=== PATIENT | female | born 1940 | race Caucasian/White ===

== ENCOUNTER 2016-10-14 19:59 | Observation (INO) | payer MEDICARE, OTHER ==
[~2016-10-14] VITALS: Ht 182.9 cm; Wt 104.0 kg
[~2016-10-14 19:59] MED LIST: DULO60 PO; EZET10 PO; HYDR12.56 PO; PERC5TAB12 PO; PROT40TA PO; REQU0.5T PO; SENN8.6T15 PO; [UNRECOGNIZED DRUG - CODE] PO
[2016-10-14 20:19] VITALS: BP 101/65; PULSE 91; RESP 20; TEMP 98.4; O2SAT 95
--- NOTE | 2016-10-14 20:22 | PD ---
HPI Chief Complaint: involuntary movements Time Seen by Provider: 20:04 Travel History International Travel<30 days: No Contact w/Intl Traveler<30days: No Traveled to known affect area: No History of Present Illness HPI The patient is a 76-year-old female who presents to the emergency department via EMS for headache and onset of involuntary movements. The patient states her symptoms started at approximately midnight last night. The patient states her gave her Zoloft at 10 PM yesterday, she then developed involuntary movements of her arms and legs at approximately midnight. The patient denies any previous history of chorea, hemiballsim, but does note a history of restless leg syndrome for which she takes Zanaflex and Requip. The patient is followed by chronic pain interventional list/neurologist, Dr. Patel. She denies any history of similar involuntary movements in the past. She also complains of a mild dull headache, does have a history of intracranial hemorrhage after a fall one year ago. Symptoms are moderate, there are no alleviating or exacerbating factors. PFSH Past Medical History Arthritis: Yes Anxiety: No Depression: No Cancer: No High Cholesterol: Yes Endocrine: No GERD: Yes Genitourinary: Yes (Admitted 11/13/15 with non obstructing calculi right kidney) Hypertension: Yes Immune Disorder: No Insomnia: Yes Musculoskeletal: Yes (LOW BACK PAIN) Neurologic: Yes (restless leg syndrome) Psychiatric: No Reproductive: No Respiratory: No Shingles: Yes Menopausal: Yes Past Surgical History Appendectomy: Yes Eye Surgery: Yes (CATARACT) Gynecologic Surgery: Yes (partial hysterectomy) Hysterectomy: Yes Joint Replacement: Yes Social History Alcohol Use: No Tobacco Use: No Substance Use: No Allergies-Medications (Allergen,Severity, Reaction): Coded Allergies: amlodipine (Unverified Allergy, Intermediate, Rash, 10/14/16) atorvastatin (Unverified Allergy, Intermediate, Rash, 10/14/16) penicillin G (Unverified Allergy, Intermediate, Rash, 10/14/16) pravastatin (Unverified Allergy, Intermediate, Rash, 10/14/16) simvastatin (Unverified Allergy, Intermediate, Rash, 10/14/16) pregabalin (Unverified Adverse Reaction, Intermediate, Hallucinations, ) Reported Meds & Prescriptions Reported Meds & Active Scripts Active Percocet 5-325 mg (Oxycodone/Acetaminophen) 1 Tab 1 Tab PO Q6H PRN Protonix (Pantoprazole Sodium) 40 Mg Tab 40 Mg PO BID Senna Lax (Sennosides) 8.6 Mg Tab 17.2 Mg PO Q12H PRN 10 Days Reported Hctz (Hydrochlorothiazide) 12.5 Mg Cap 12.5 Mg PO DAILY Duloxetine HCl 60 Mg Cap 60 Mg PO DAILY Requip 0.5 mg (ROPINIROLE HYDROCHLORIDE 0.5 mg) 0.5 Mg Tab 0.5 Mg PO HS Zetia (Ezetimibe) 10 Mg Tab 10 Mg PO DAILY Isoptin 180 Mg Tab Sr (Verapamil HCl) 180 Mg Tabcr 180 Mg PO BID Review of Systems Except as stated in HPI: all other systems reviewed are Neg General / Constitutional: No: Fever HENT: Positive: Headaches, No: Lightheadedness, Neck Pain Cardiovascular: No: Chest Pain or Discomfort Respiratory: No: Shortness of Breath Gastrointestinal: No: Nausea, Vomiting Musculoskeletal: No: Weakness Neurologic: Positive: Other (involuntary movements of the arms and legs), No: Dizziness Physical Exam Narrative GENERAL: Awake, alert, pleasant 76-year-old female who appears her stated age and is in no acute respiratory distress. SKIN: Focused skin assessment warm/dry. HEAD: Atraumatic. Normocephalic. EYES: Pupils equal and round. Pupils are 3 mm bilateral and reactive. ENT: No nasal bleeding or discharge. Mucous membranes pink and moist. NECK: Trachea midline. No JVD. CARDIOVASCULAR: Regular rate and rhythm. No murmur appreciated. RESPIRATORY: No accessory muscle use. Clear to auscultation. Breath sounds equal bilaterally. GASTROINTESTINAL: Abdomen soft, non-tender, nondistended. MUSCULOSKELETAL: No obvious deformities. No clubbing. No cyanosis. No edema. NEUROLOGICAL: Awake and alert. No obvious cranial nerve deficits. Involuntary chorea type movements of the arms and legs. Oriented 4. Follows commands without difficulty. PSYCHIATRIC: Appropriate mood and affect; insight and judgment normal. Data Data Last Documented VS Vital Signs Date Time Temp Pulse Resp B/P (MAP) Pulse Ox O2 Delivery O2 Flow Rate FiO2 10/14/16 20:26 95 Room Air 10/14/16 20:19 98.4 91 20 101/65 (77) Orders Orders Complete Blood Count With Diff (8/21/17 20:16) Comprehensive Metabolic Panel (10/14/16 20:16) Urinalysis - C+S If Indicated (10/14/16 20:16) Creatine Kinase (Cpk) (10/14/16 20:16) Ct Brain W/O Iv Contrast(Rout) (10/14/16 ) Lorazepam Inj (Ativan Inj) (10/14/16 20:30) Electrocardiogram (10/14/16 20:32) CKMB (10/14/16 20:50) CKMB% (10/14/16 20:50) Admit Order (Ed Use Only) (10/14/16 22:18) Labs Laboratory Tests Test 10/14/16 20:50 10/14/16 21:05 White Blood Count 13.1 TH/MM3 Red Blood Count 4.02 MIL/MM3 Hemoglobin 12.3 GM/DL Hematocrit 37.4 % Mean Corpuscular Volume 93.1 FL Mean Corpuscular Hemoglobin 30.7 PG Mean Corpuscular Hemoglobin Concent 33.0 % Red Cell Distribution Width 12.5 % Platelet Count 289 TH/MM3 Mean Platelet Volume 8.0 FL Neutrophils (%) (Auto) 62.1 % Lymphocytes (%) (Auto) 31.2 % Monocytes (%) (Auto) 5.4 % Eosinophils (%) (Auto) 0.5 % Basophils (%) (Auto) 0.8 % Neutrophils # (Auto) 8.1 TH/MM3 Lymphocytes # (Auto) 4.1 TH/MM3 Monocytes # (Auto) 0.7 TH/MM3 Eosinophils # (Auto) 0.1 TH/MM3 Basophils # (Auto) 0.1 TH/MM3 CBC Comment DIFF FINAL Differential Comment Blood Urea Nitrogen 28 MG/DL Creatinine 0.81 MG/DL Random Glucose 99 MG/DL Total Protein 6.7 GM/DL Albumin 3.4 GM/DL Calcium Level 8.7 MG/DL Alkaline Phosphatase 114 U/L Aspartate Amino Transf (AST/SGOT) 14 U/L Alanine Aminotransferase (ALT/SGPT) 24 U/L Total Bilirubin 0.4 MG/DL Sodium Level 140 MEQ/L Potassium Level 3.9 MEQ/L Chloride Level 108 MEQ/L Carbon Dioxide Level 21.2 MEQ/L Anion Gap 11 MEQ/L Estimat Glomerular Filtration Rate 69 ML/MIN Total Creatine Kinase 219 U/L Creatine Kinase MB 8.0 NG/ML Creatine Kinase MB % 3.7 % Urine Color YELLOW Urine Turbidity CLEAR Urine pH 5.5 Urine Specific [place] 1.024 Urine Protein TRACE mg/dL Urine Glucose (UA) NEG mg/dL Urine Ketones NEG mg/dL Urine Occult Blood NEG Urine Nitrite POS Urine Bilirubin NEG Urine Urobilinogen LESS THAN 2.0 MG/DL Urine Leukocyte Esterase SMALL Urine RBC 2 /hpf Urine WBC 7 /hpf Urine Squamous Epithelial Cells <1 /hpf Urine Bacteria OCC /hpf Urine Hyaline Casts 2 /lpf Urine Mucus FEW /lpf Urine Yeast (Budding) RARE Microscopic Urinalysis Comment CULT NOT INDICATED MDM Medical Decision Making Medical Screen Exam Complete: Yes Emergency Medical Condition: Yes Medical Record Reviewed: Yes Interpretation(s) CT of the brain reveals no acute findings. Laboratory Tests Test 10/14/16 20:50 10/14/16 21:05 White Blood Count 13.1 TH/MM3 Red Blood Count 4.02 MIL/MM3 Hemoglobin 12.3 GM/DL Hematocrit 37.4 % Mean Corpuscular Volume 93.1 FL Mean Corpuscular Hemoglobin 30.7 PG Mean Corpuscular Hemoglobin Concent 33.0 % Red Cell Distribution Width 12.5 % Platelet Count 289 TH/MM3 Mean Platelet Volume 8.0 FL Neutrophils (%) (Auto) 62.1 % Lymphocytes (%) (Auto) 31.2 % Monocytes (%) (Auto) 5.4 % Eosinophils (%) (Auto) 0.5 % Basophils (%) (Auto) 0.8 % Neutrophils # (Auto) 8.1 TH/MM3 Lymphocytes # (Auto) 4.1 TH/MM3 Monocytes # (Auto) 0.7 TH/MM3 Eosinophils # (Auto) 0.1 TH/MM3 Basophils # (Auto) 0.1 TH/MM3 CBC Comment DIFF FINAL Differential Comment Blood Urea Nitrogen 28 MG/DL Creatinine 0.81 MG/DL Random Glucose 99 MG/DL Total Protein 6.7 GM/DL Albumin 3.4 GM/DL Calcium Level 8.7 MG/DL Alkaline Phosphatase 114 U/L Aspartate Amino Transf (AST/SGOT) 14 U/L Alanine Aminotransferase (ALT/SGPT) 24 U/L Total Bilirubin 0.4 MG/DL Sodium Level 140 MEQ/L Potassium Level 3.9 MEQ/L Chloride Level 108 MEQ/L Carbon Dioxide Level 21.2 MEQ/L Anion Gap 11 MEQ/L Estimat Glomerular Filtration Rate 69 ML/MIN Total Creatine Kinase 219 U/L Urine Color YELLOW Urine Turbidity CLEAR Urine pH 5.5 Urine Specific [place] 1.024 Urine Protein TRACE mg/dL Urine Glucose (UA) NEG mg/dL Urine Ketones NEG mg/dL Urine Occult Blood NEG Urine Nitrite POS Urine Bilirubin NEG Urine Urobilinogen LESS THAN 2.0 MG/DL Urine Leukocyte Esterase SMALL Urine RBC 2 /hpf Urine WBC 7 /hpf Urine Squamous Epithelial Cells <1 /hpf Urine Bacteria OCC /hpf Urine Hyaline Casts 2 /lpf Urine Mucus FEW /lpf Urine Yeast (Budding) RARE Microscopic Urinalysis Comment CULT NOT INDICATED Differential Diagnosis Differential diagnosis includes chorea, hemiballism, brainstem infarct, cerebellar infarct, medication side effect. Narrative Course IV was established, labs are drawn and sent, and the patient was placed on cardiac telemetry monitoring and continuous pulse oximetry monitoring. CT of the brain was obtained. The patient was administered Ativan [address] of the brain is negative for acute hemorrhage. Laboratory evaluation is essentially unremarkable. Patient has chorea, acute onset, unsure if this is medication induced versus organic brain disease. Patient will benefit from neurology consultation and MRI. Patient does take several medicines which could be the culprit of her chorea. She had minimal relief with Ativan, I will hold on antipsychotics until patient is seen by neurology. The patient has [employer] and is followed by Dr. Perry Shoemaker, therefore, [facility] were paged for 23 hour observation. Physician Communication Physician Communication [facility] were paged for 23 hour observation. I discussed the patient with Dr. Joya who agrees with 23 hour observation. Diagnosis Primary Impression: Acute chorea Admitting Information Admitting Physician Requests: Observation Condition: Stable Dyllan Gimenez MD Oct 14, 2016 20:22
[2016-10-14] MEDS ORDERED: LORazepam 2 MG/ML VIAL IV PUSH ONE (20:30)
--- NOTE | 2016-10-14 21:23 | RADRPT ---
EXAM DATE/TIME: 10/14/2016 20:45 [facility] COMPARISON: CT BRAIN W/O CONTRAST, August 17, 2015, 0:02. INDICATIONS : Cephalgia and weakness. RADIATION DOSE: 56.35 CTDIvol (mGy) MEDICAL HISTORY : Hypertension. Gastroesophageal reflux disease. Renal calculi. SURGICAL HISTORY : Appendectomy. Hysterectomy. ENCOUNTER: Initial ACUITY: 1 day PAIN SCALE: 6/10 LOCATION: cranial TECHNIQUE: Multiple contiguous axial images were obtained of the head. Using automated exposure control and adj ustment of the mA and/or kV according to patient size, radiation dose was kept as low as reasonably a chievable to obtain optimal diagnostic quality images. DICOM format image data is available electro nically for review and comparison. FINDINGS: CEREBRUM: The ventricles are normal for age. No evidence of midline shift, mass lesion, hemorrhage or acute in farction. No extra-axial fluid collections are seen. POSTERIOR FOSSA: The cerebellum and brainstem are intact. The 4th ventricle is midline. The cerebellopontine angle i s unremarkable. EXTRACRANIAL: The visualized portion of the orbits is intact. SKULL: The calvaria is intact. No evidence of skull fracture. CONCLUSION: No acute disease. Stable exam without evidence of acute infarct, hemorrhage, mass or edema. Ronn Mcduffie MD on October 14, 2016 at 21:21 Board Certified Radiologist. This report was verified electronically.
[2016-10-14 21:32] LABS: AUTOMATED NEUTROPHIL # 8.1 TH/MM3 (1.8-7.7); BASOPHIL # 0.1 TH/MM3 (0-0.2); BASOPHIL % 0.8 % (0.0-2.0); EOSINOPHIL # 0.1 TH/MM3 (0-0.4); EOSINOPHIL % 0.5 % (0.0-4.0); HEMATOCRIT 37.4 % (35.0-46.0); HEMO FLAGS DIFF FINAL; LYMPH % 31.2 % (9.0-44.0); LYMPHOCYTE # 4.1 TH/MM3 (1.0-4.8); MEAN CELL VOLUME 93.1 FL (80.0-100.0); MEAN CORPUSCULAR HEMOGLOBIN 30.7 PG (27.0-34.0); MONO % 5.4 % (0.0-8.0); NEUT % 62.1 % (16.0-70.0); PLATELET COUNT 289 TH/MM3 (150-450); RED BLOOD COUNT 4.02 MIL/MM3 (4.00-5.30); RED CELL DISTRIBUTION WIDTH 12.5 % (11.6-17.2); WHITE BLOOD COUNT 13.1 TH/MM3 (4.0-11.0)
[2016-10-14 21:45] LABS: BACTERIA, URINE OCC /hpf; BLOOD, URINE NEG (NEG); GLUCOSE,URINE NEG (NEG); HYALINE CAST, URINE 2 /lpf (RARE); KETONE, URINE NEG (NEG); MUCUS URINE FEW /lpf (OCC); NITRITE,URINE POS (NEG); PH, URINE 5.5 (5.0-8.5); SQUAMOUS EPITHELIAL CELL URINE <1 /hpf (0-5); URINE COLOR YELLOW (YELLW/STRAW)
[2016-10-14 21:46] LABS: COMMENT (UR) CULT NOT INDICATED; CULTURE IF INDICATED CULT NOT INDICATED
[2016-10-14 21:48] LABS: ANION GAP 11 MEQ/L (5-15); AST (GOT) 14 U/L (15-37); BICARBONATE 21.2 MEQ/L (21.0-32.0); BLOOD UREA NITROGEN 28 MG/DL (7-18); CHLORIDE 108 MEQ/L (98-107); GLOMERULAR FILTRATION RATE 69 ML/MIN (>89); POTASSIUM 3.9 MEQ/L (3.5-5.1); SODIUM (NA) 140 MEQ/L (136-145)
[2016-10-14 21:49] LABS: ALT (GPT) 24 U/L (10-53)
[2016-10-14 21:51] LABS: ALKALINE PHOSPHATASE 114 U/L (45-117); CREATINE KINASE 219 U/L (26-192); TOTAL BILIRUBIN ADULT 0.4 MG/DL (0.2-1.0)
[2016-10-14] MEDS ORDERED: LACTULOSE SYRUP 20 GM/30 ML CUP PO PRN (22:30)
[2016-10-14] MEDS ORDERED: NALOXONE HCL 0.4 MG/ML AMP IV PRN (22:30)
[2016-10-14] MEDS ORDERED: MAGNESIUM HYDROXIDE SUSP 30 ML CUP PO PRN (22:30)
[2016-10-14] MEDS ORDERED: SENNOSIDES 8.6 MG TAB PO PRN (22:30)
[2016-10-14] MEDS ORDERED: ACETAMINOPHEN 325 MG TAB PO PRN ×2 (22:30)
[2016-10-14] MEDS ORDERED: SODIUM CHLORIDE 0.9% FLUSH 10 ML FLUSH IV FLUSH PRN (22:30)
[2016-10-14] MEDS ORDERED: ONDANSETRON HCL 4 MG/2 ML VIAL IVP PRN (22:30)
--- NOTE | 2016-10-14 23:14 | HHI.HP ---
HPI Service [facility] Primary Care Physician Perry Shoemaker DO Admission Diagnosis new onset chorea Diagnoses: Chief Complaint: Involuntary movements Travel History International Travel<30 Days: No Contact w/Intl Traveler <30 Da: No Traveled to Known Affected Are: No History of Present Illness This is a 76-year-old female with history of hyperlipidemia, hypertension, GERD , restless leg syndrome, chronic bed 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 She presented to the emergency department complaining of involuntary movements that started last night after receiving Zoloft given that has been because she was unable to sleep. States she is not able to control her movements involving her head and extremities. She also complains of intermittent mild headache for the past 2 days. No visual changes, numbness, focal weakness and nausea. Earlier today she had an episode of difficulty staying awake and diaphoresis. No cough, UTI symptoms, diarrhea, fever and chills. Head CT without acute findings. She was seen by her PA in the neurologist clinic today and was told she didn't look right. She did not receive refill of her pain medications because she needed blood work. ER physician recommended further hospitalization because of new onset Chorea . All other systems reviewed negative Review of Systems Except as stated in HPI: all other systems reviewed are Neg Past Family Social History Past Medical History As previously mentioned Past Surgical History Appendectomy, cataract surgery, hysterectomy, knee surgery and back vilma placement Reported Medications RN to update med list but patient claims to be on Percocet, Protonix, Requip, Zetia and verapamil Allergies: Coded Allergies: amlodipine (Unverified Allergy, Intermediate, Rash, 10/14/16) atorvastatin (Unverified Allergy, Intermediate, Rash, 10/14/16) penicillin G (Unverified Allergy, Intermediate, Rash, 10/14/16) pravastatin (Unverified Allergy, Intermediate, Rash, 10/14/16) simvastatin (Unverified Allergy, Intermediate, Rash, 10/14/16) pregabalin (Unverified Adverse Reaction, Intermediate, Hallucinations, ) Family History ALS Social History Does not smoke or drink Physical Exam Vital Signs Vital Signs Date Time Temp Pulse Resp B/P (MAP) Pulse Ox O2 Delivery O2 Flow Rate FiO2 10/14/16 20:26 95 Room Air 10/14/16 20:19 98.4 91 20 101/65 (77) 95 Physical Exam GENERAL: This is a well-nourished, well-developed patient, in no apparent distress. SKIN: No rashes, ecchymoses or lesions. Cool and dry. HEAD: Atraumatic. Normocephalic. No temporal or scalp tenderness. EYES: Pupils equal round and reactive. Extraocular motions intact. No scleral icterus. No injection or drainage. ENT: Nose without bleeding, purulent drainage or septal hematoma. Throat without erythema, tonsillar hypertrophy or exudate. Uvula midline. Airway patent. NECK: Trachea midline. No JVD or lymphadenopathy. Supple, nontender, no meningeal signs. CARDIOVASCULAR: Regular rate and rhythm without murmurs, gallops, or rubs. RESPIRATORY: Clear to auscultation. Breath sounds equal bilaterally. No wheezes , rales, or rhonchi. GASTROINTESTINAL: Abdomen soft, non-tender, nondistended. No guarding. MUSCULOSKELETAL: Extremities without clubbing, cyanosis, or edema. No joint tenderness, effusion, or edema noted. No calf tenderness. Negative Homans sign bilaterally. NEUROLOGICAL: Awake and alert. Cranial nerves II through XII intact. Decreased sensation left leg which is chronic per patient. Five out of 5 muscle strength in all muscle groups. Normal speech. Involuntary irregular motor activity involving the head and extremities Laboratory Laboratory Tests Test 10/14/16 20:50 10/14/16 21:05 White Blood Count 13.1 Red Blood Count 4.02 Hemoglobin 12.3 Hematocrit 37.4 Mean Corpuscular Volume 93.1 Mean Corpuscular Hemoglobin 30.7 Mean Corpuscular Hemoglobin Concent 33.0 Red Cell Distribution Width 12.5 Platelet Count 289 Mean Platelet Volume 8.0 Neutrophils (%) (Auto) 62.1 Lymphocytes (%) (Auto) 31.2 Monocytes (%) (Auto) 5.4 Eosinophils (%) (Auto) 0.5 Basophils (%) (Auto) 0.8 Neutrophils # (Auto) 8.1 Lymphocytes # (Auto) 4.1 Monocytes # (Auto) 0.7 Eosinophils # (Auto) 0.1 Basophils # (Auto) 0.1 CBC Comment DIFF FINAL Differential Comment Blood Urea Nitrogen 28 Creatinine 0.81 Random Glucose 99 Total Protein 6.7 Albumin 3.4 Calcium Level 8.7 Alkaline Phosphatase 114 Aspartate Amino Transf (AST/SGOT) 14 Alanine Aminotransferase (ALT/SGPT) 24 Total Bilirubin 0.4 Sodium Level 140 Potassium Level 3.9 Chloride Level 108 Carbon Dioxide Level 21.2 Anion Gap 11 Estimat Glomerular Filtration Rate 69 Total Creatine Kinase 219 Creatine Kinase MB 8.0 Creatine Kinase MB % 3.7 Urine Color YELLOW Urine Turbidity CLEAR Urine pH 5.5 Urine Specific [place] 1.024 Urine Protein TRACE Urine Glucose (UA) NEG Urine Ketones NEG Urine Occult Blood NEG Urine Nitrite POS Urine Bilirubin NEG Urine Urobilinogen LESS THAN 2.0 Urine Leukocyte Esterase SMALL Urine RBC 2 Urine WBC 7 Urine Squamous Epithelial Cells <1 Urine Bacteria OCC Urine Hyaline Casts 2 Urine Mucus FEW Urine Yeast (Budding) RARE Microscopic Urinalysis Comment CULT NOT INDICATED Result Diagram: 10/14/16204910/14/162049 Imaging EKG with sinus rhythm and incomplete RBBB tracing interpreted by Caprini VTE Risk Assessment Caprini VTE Risk Assessment: Mod/High Risk (score >= 2) Caprini Risk Assessment Model Point Value = 1 Point Value = 2 Point Value = 3 Point Value = 5 Age 41-60 Minor surgery BMI > 25 kg/m2 Swollen legs Varicose veins or History of unexplained or recurrent spontaneous Oral contraceptives or hormone replacement Sepsis (< 1 month) Serious lung disease, including pneumonia (< 1 month) Abnormal pulmonary function Acute myocardial infarction Congestive heart failure (< 1 month) History of inflammatory bowel disease Medical patient at bed rest Age 61-74 Arthroscopic surgery Major open surgery (> 45 min) Laparoscopic surgery (> 45 min) Malignancy Confined to bed (> 72 hours) Immobilizing plaster cast Central venous access Age >= 75 History of VTE Family history of VTE Factor V Leiden Prothrombin [id number] Lupus anticoagulant Anticardiolipin antibodies Elevated serum homocysteine Heparin-induced thrombocytopenia Other congenital or acquired thrombophilia Stroke (< 1 month) Elective arthroplasty Hip, pelvis, or leg fracture Acute spinal cord injury (< 1 month) Prophylaxis Regimen Total Risk Factor Score Risk Level Prophylaxis Regimen 0-1 Low Early ambulation 2 Moderate Order ONE of the following: *Sequential Compression Device (SCD) *Heparin 5000 units SQ BID 3-4 Higher Order ONE of the following medications: *Heparin 5000 units SQ TID *Enoxaparin/Lovenox 40 mg SQ daily (WT < 150 kg, CrCl > 30 mL/min) *Enoxaparin/Lovenox 30 mg SQ daily (WT < 150 kg, CrCl > 10-29 mL/min) *Enoxaparin/Lovenox 30 mg SQ BID (WT < 150 kg, CrCl > 30 mL/min) AND/OR *Sequential Compression Device (SCD) 5 or more Highest Order ONE of the following medications: *Heparin 5000 units SQ TID (Preferred with Epidurals) *Enoxaparin/Lovenox 40 mg SQ daily (WT < 150 kg, CrCl > 30 mL/min) *Enoxaparin/Lovenox 30 mg SQ daily (WT < 150 kg, CrCl > 10-29 mL/min) *Enoxaparin/Lovenox 30 mg SQ BID (WT < 150 kg, CrCl > 30 mL/min) AND *Sequential Compression Device (SCD) Assessment and Plan Assessment and Plan This is a 76-year-old female with history of hyperlipidemia, hypertension, GERD , restless leg syndrome, chronic bed 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 She presented to the emergency department complaining of involuntary movements that started last night after receiving Zoloft given that has been because she was unable to sleep. States she is not able to control her movements involving her head and extremities. She also complains of intermittent mild headache for the past 2 days. No visual changes, numbness, focal weakness and nausea. Earlier today she had an episode of difficulty staying awake and diaphoresis. No cough, UTI symptoms, diarrhea, fever and chills. Head CT without acute findings. New onset chorea. HCT without acute findings. Etiology not clear cut be medication related. Obtain MRI of the brain. Consult neurology Leukocytosis. Abnormal urinalysis with no UTI symptoms. Obtain urine culture. Repeat CBC in the morning. RN to update home med list DVT prophylaxis with SCD. Hold pharmacological prophylaxis may need LP Discussed Condition With Patient Chaparro Joya MD Oct 14, 2016 23:14
[2016-10-15] VITALS (11 sets, daily range): BP systolic 109–150; BP diastolic 60–87; PULSE 69–108; RESP 16–18; TEMP 97–99.1; O2SAT 93–100
[2016-10-15] MEDS ORDERED: TIZA1POW4 PO (01:55)
[2016-10-15] MEDS: oxyCODONE/ACETAMINOPHEN 5 MG/325 MG TAB PO PRN ×3 (02:27→17:46)
--- NOTE | 2016-10-15 06:57 | PD.CONS ---
History of Present Illness Service Neurology Consult Requested By [facility] Reason for Consult movements Primary Care Physician Perry Shoemaker DO History of Present Illness 76-year-old female with history of hyperlipidemia, hypertension, GERD, restless leg syndrome, chronic bed 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 uses wheelchair when she does get out of bed. ran out of pain meds and took her spouses prozac/ssri for the first time. shortly thereafter, she began having involuntary movements of all ext. no loc. had an mri brain which was negative for an acute process. they have improved since admission and since she has received ativan. no fever, no hx of involuntary movements prior to this. she takes percocet 10 QID, tizanidine, and requip. Review of Systems Except as stated in HPI: all other systems reviewed are Neg Past Family Social History Past Medical History As previously mentioned Past Surgical History Appendectomy, cataract surgery, hysterectomy, knee surgery and back vilma placement Reported Medications Percocet QID, Protonix, Requip, Zetia and verapamil, tizanidine Allergies: Coded Allergies: amlodipine (Unverified Allergy, Intermediate, Rash, 10/14/16) atorvastatin (Unverified Allergy, Intermediate, Rash, 10/14/16) penicillin G (Unverified Allergy, Intermediate, Rash, 10/14/16) pravastatin (Unverified Allergy, Intermediate, Rash, 10/14/16) simvastatin (Unverified Allergy, Intermediate, Rash, 10/14/16) pregabalin (Unverified Adverse Reaction, Intermediate, Hallucinations, ) Family History ALS Social History Does not smoke or drink Review of Systems All other ROS: ROS reviewed as documented in chart Past Family Social History Allergies: Coded Allergies: amlodipine (Unverified Allergy, Intermediate, Rash, 10/14/16) atorvastatin (Unverified Allergy, Intermediate, Rash, 10/14/16) penicillin G (Unverified Allergy, Intermediate, Rash, 10/14/16) pravastatin (Unverified Allergy, Intermediate, Rash, 10/14/16) simvastatin (Unverified Allergy, Intermediate, Rash, 10/14/16) pregabalin (Unverified Adverse Reaction, Intermediate, Hallucinations, ) Active Ordered Medications Current Medications Medications (Trade) Dose Ordered Sig/Alonzo Route Start Time Stop Time Status Last Admin (Ativan Inj) 1 mg Q6H PRN IV PUSH 10/14/16 22:30 (NS Flush) 2 ml UNSCH PRN IV FLUSH 10/14/16 22:30 (NS Flush) 2 ml BID IV FLUSH 10/15/16 09:00 (Tylenol) 650 mg Q4H PRN PO 10/14/16 22:30 (Zofran Inj) 4 mg Q6H PRN IVP 10/14/16 22:30 (Tylenol) 650 mg Q6H PRN PO 10/14/16 22:30 (Narcan Inj) 0.4 mg UNSCH PRN IV 10/14/16 22:30 (Leslie-Colace) 1 tab BID PO 10/15/16 09:00 (Milk Of Magnesia Liq) 30 ml Q12H PRN PO 10/14/16 22:30 (Senokot) 17.2 mg Q12H PRN PO 10/14/16 22:30 (Lactulose Liq) 30 ml DAILY PRN PO 10/14/16 22:30 (Zetia) 10 mg DAILY PO 10/15/16 09:00 (Requip) 0.5 mg HS PO 10/14/16 23:15 10/14/16 23:55 (Isoptin Sr) 180 mg BID PO 10/15/16 09:00 (Percocet 5-325 Mg) 1 tab Q4H PRN PO 10/15/16 02:15 10/15/16 02:27 Family History lives with spouse Exam I&O / VS Vital Signs Date Time Temp Pulse Resp B/P (MAP) Pulse Ox O2 Delivery O2 Flow Rate FiO2 10/15/16 04:14 85 10/15/16 03:48 18 10/15/16 03:33 97.0 86 18 109/64 (79) 95 10/15/16 00:55 69 10/15/16 00:20 97.4 95 17 144/75 (98) 100 10/14/16 20:26 95 Room Air 10/14/16 20:19 98.4 91 20 101/65 (77) 95 General: Alert and Oriented, No acute distress Eye: EOMI Respiratory: Non-labored respirations Neurologic: Alert, Oriented, Normal sensory, CN II-XII intact Psychiatric: Cooperative, Appropriate mood & affect, Normal judgement, Non- suicidal Exam Comments ox 3, no aphasia, follows, dyskinetic movements of neck and trunk. 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 +myoclonus, +mild elevation in ck, tachy, + ssri use with opiods/dopa agonist/muscle relaxer on multiple psychotropic medications with high chance of drug-drug interaction and probable intolerance to ssri recs supportive care benzo prn d/c planning once improved follow exam (2) Chronic pain disorder ICD Codes: G89.4 - Chronic pain syndrome Status: Chronic (3) Restless legs syndrome (RLS) ICD Codes: G25.81 - Restless legs syndrome Status: Chronic Plan: on dopa agonist (4) Hypertension ICD Codes: I10 - Essential (primary) hypertension Status: Acute Problem Qualifiers (1) Hypertension: Qualified Codes: I10 - Essential (primary) hypertension Dick Abarca MD Oct 15, 2016 06:57
[2016-10-15] MEDS: LORazepam 2 MG/ML VIAL IV PUSH PRN ×2 (07:30→17:03)
[2016-10-15] MEDS ORDERED: GADODIAMIDE PF 287 MG/ML 20 ML VIAL (for RAD MRI) IVCONTRAST ONE (08:40)
--- NOTE | 2016-10-15 09:38 | RADRPT ---
EXAM DATE/TIME: 10/15/2016 08:19 [place] COMPARISON: CT BRAIN W/O CONTRAST, October 14, 2016, 20:45. INDICATIONS : New onset uncontrollable tremors. CONTRAST: 20 cc Omniscan (gadodiamide) IV MEDICAL HISTORY : Hypertension. Gastroesophageal reflux disease. SURGICAL HISTORY : Tonsillectomy. Appendectomy. Nirmal rods. Left ankle repair. ENCOUNTER: Subsequent ACUITY: 2 day PAIN SCORE: 0/10 LOCATION: head. TECHNIQUE: Multiplanar, multisequence MRI of the brain was performed both prior to and following the administrat ion of paramagnetic contrast. FINDINGS: CEREBRUM: The ventricles are normal for age. No evidence of midline shift, mass lesion, hemorrhage or acute in farction. No extraaxial fluid collections are seen. The pituitary gland and suprasellar cistern are normal in configuration. WHITE MATTER: Mild to moderate white matter changes in the periventricular, deep and subcortical white matter tract s. POSTERIOR FOSSA: The cerebellum and brainstem are intact. The 4th ventricle is midline. The cerebellopontine angle is unremarkable. The cerebellar tonsils are normal in position. DIFFUSION IMAGING: No focal areas of restricted diffusion are seen. No evidence of acute infarction. EXTRACRANIAL: The visualized portions of the orbits and paranasal sinuses are unremarkable. POST-CONTRAST: No abnormal areas of parenchymal or dural enhancement. No evidence of blood-brain barrier breakdown. CONCLUSION: 1. Mild to moderate small vessel ischemic demyelination. 2. Nothing acute. Aubrey Lagunas MD on October 15, 2016 at 9:33 Board Certified Radiologist. This report was verified electronically.
--- NOTE | 2016-10-15 09:53 | HHI.PR ---
Subjective Remarks Follow up for chorea, involuntary movements. The patient reports continued uncontrolled involuntary movements of hands, arms, legs, head. She says her neck is getting sore from the constant moving. She does believe the Ativan is helping. She was able to get some sleep last night. This was the first time she has ever taken Zoloft. She has no other medical complaints at this time. Objective Vitals Vital Signs Date Time Temp Pulse Resp B/P (MAP) Pulse Ox O2 Delivery O2 Flow Rate FiO2 10/15/16 04:14 85 10/15/16 03:48 18 10/15/16 03:33 97.0 86 18 109/64 (79) 95 10/15/16 00:55 69 10/15/16 00:20 97.4 95 17 144/75 (98) 100 10/14/16 20:26 95 Room Air 10/14/16 20:19 98.4 91 20 101/65 (77) 95 Result Diagram: 10/14/16204910/14/162049 Imaging 10/14/16 - Head CT w/out Contrast shows no acute findings; stable exam without evidence of acute infarct, hemorrhage, mass, or edema. 10/15/16 - Brain MRI shows mild to moderate small vessel ischemic demyelination; no acute findings. Objective Remarks GENERAL: Well-nourished, well-developed elderly female patient in [facility]. SKIN: Warm and dry. No rash. HEENT: Normocephalic. Atraumatic.Pupils equal and round. Mucous membranes pink and moist. NECK: Supple. Trachea midline. Torticollis to the left. CARDIOVASCULAR: Regular rate and rhythm. S1, S2 noted. No murmur appreciated. RESPIRATORY: No accessory muscle use. Clear to auscultation. Breath sounds equal bilaterally. GASTROINTESTINAL: Abdomen soft, non-tender, nondistended. Normoactive bowel sounds x4. MUSCULOSKELETAL: No obvious deformities. Extremities without clubbing, cyanosis , or edema. NEUROLOGICAL: Awake and alert. No obvious cranial nerve deficits. Motor grossly within normal limits. Normal speech. Continuous involuntary and irregular movements throughout neck, hands/arms, and occasionally legs. PSYCHIATRIC: Appropriate mood and affect; insight and judgment normal. Medications and IVs Current Medications Medications (Trade) Dose Ordered Sig/Alonzo Route Start Time Stop Time Status Last Admin (Ativan Inj) 1 mg Q6H PRN IV PUSH 10/14/16 22:30 10/15/16 07:30 (NS Flush) 2 ml UNSCH PRN IV FLUSH 10/14/16 22:30 (NS Flush) 2 ml BID IV FLUSH 10/15/16 09:00 10/15/16 09:56 (Tylenol) 650 mg Q4H PRN PO 10/14/16 22:30 (Zofran Inj) 4 mg Q6H PRN IVP 10/14/16 22:30 (Tylenol) 650 mg Q6H PRN PO 10/14/16 22:30 (Narcan Inj) 0.4 mg UNSCH PRN IV 10/14/16 22:30 (Leslie-Colace) 1 tab BID PO 10/15/16 09:00 10/15/16 09:57 (Milk Of Magnesia Liq) 30 ml Q12H PRN PO 10/14/16 22:30 (Senokot) 17.2 mg Q12H PRN PO 10/14/16 22:30 (Lactulose Liq) 30 ml DAILY PRN PO 10/14/16 22:30 (Zetia) 10 mg DAILY PO 10/15/16 09:00 10/15/16 09:57 (Requip) 0.5 mg HS PO 10/14/16 23:15 10/14/16 23:55 (Isoptin Sr) 180 mg BID PO 10/15/16 09:00 10/15/16 10:19 (Percocet 5-325 Mg) 1 tab Q4H PRN PO 10/15/16 02:15 10/15/16 10:30 A/P Problem List: (1) 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 Now unable to control her movements involving her head and extremities. New Onset Chorea: Suspect secondary to Zoloft. Head CT images reviewed, no acute findings. Brain MRI images reviewed, shows mild to moderate small vessel ischemic demyelination; no acute findings. -Consult neurology -Continue IV Ativan prn (patient believes this is helping) -Consult PT/OT UTI: +leukocytosis WBC 13K. UA with +nitrites, leuks, occ bacteria. -Start on Cipro 500mg bid x3days -Obtain urine culture. -Repeat CBC RN to update home med list. DVT prophylaxis with SCD. Hold pharmacological prophylaxis for now incase patient needs LP. Discharge Planning 0915hrs: Discharge pending further clinical improvement and clearance from neurology. Miladys Knowles PA-C Oct 15, 2016 9:53 am
[2016-10-15] MEDS: SODIUM CHLORIDE 0.9% FLUSH 10 ML FLUSH IV FLUSH SCH ×2 (09:56→20:50)
[2016-10-15] MEDS: DOCUSATE SODIUM 50 MG/SENNA 8.6 MG TAB PO SCH ×2 (09:57→20:50)
[2016-10-15] MEDS: EZETIMIBE 10 MG TAB PO SCH (09:57)
[2016-10-15] MEDS: VERAPAMIL HCL 180 MG SUSTAINED RELEASE TAB PO SCH ×2 (10:19→20:50)
[2016-10-15] MEDS: CIPROFLOXACIN 500 MG TAB PO SCH ×2 (12:50→20:50)
--- NOTE | 2016-10-15 13:49 | EKG ---
Date Performed: 10/14/2016 Time Performed: 20:32:06 PTAGE: 76 years EKG: Sinus rhythm POSSIBLE LEFT ATRIAL ENLARGEMENT RIGHT BUNDLE BRANCH BLOCK LEFT ANTERIOR FASCICULAR BLOCK POSSIBLE S EPTAL MYOCARDIAL INFARCTION ABNORMAL ECG Compared to prior tracing no significant change PREVIOUS TRACING : 10/24/2015 12.43 DOCTOR: Adeline Pavon Interpretating Date/Time 10/15/2016 13:43:43
[2016-10-15 14:06] LABS: AUTOMATED NEUTROPHIL # 5.7 TH/MM3 (1.8-7.7); BASOPHIL # 0.1 TH/MM3 (0-0.2); BASOPHIL % 0.8 % (0.0-2.0); EOSINOPHIL # 0.1 TH/MM3 (0-0.4); HEMATOCRIT 35.8 % (35.0-46.0); HEMO FLAGS DIFF FINAL; LYMPH % 37.3 % (9.0-44.0); LYMPHOCYTE # 3.9 TH/MM3 (1.0-4.8); MEAN CELL VOLUME 91.8 FL (80.0-100.0); MEAN CORPUSCULAR HEMOGLOBIN 30.9 PG (27.0-34.0); MEAN CORPUSCULAR HGB CONC 33.7 % (32.0-36.0); MONO % 5.6 % (0.0-8.0); NEUT % 55.3 % (16.0-70.0); PLATELET COUNT 267 TH/MM3 (150-450); RED BLOOD COUNT 3.89 MIL/MM3 (4.00-5.30); RED CELL DISTRIBUTION WIDTH 12.7 % (11.6-17.2); WHITE BLOOD COUNT 10.3 TH/MM3 (4.0-11.0)
[2016-10-15 14:26] LABS: BICARBONATE 22.9 MEQ/L (21.0-32.0); MAGNESIUM 2.2 MG/DL (1.5-2.5)
[2016-10-16] VITALS (7 sets, daily range): BP systolic 126–177; BP diastolic 63–74; PULSE 83–97; RESP 16–18; TEMP 97.8–98.6; O2SAT 93–98
[2016-10-16] MEDS: LORazepam 2 MG/ML VIAL IV PUSH PRN ×2 (02:20→12:05)
[2016-10-16] MEDS: oxyCODONE/ACETAMINOPHEN 5 MG/325 MG TAB PO PRN ×2 (04:11→10:15)
[2016-10-16] MEDS: DOCUSATE SODIUM 50 MG/SENNA 8.6 MG TAB PO SCH (08:07)
[2016-10-16] MEDS: CIPROFLOXACIN 500 MG TAB PO SCH (08:07)
[2016-10-16] MEDS: VERAPAMIL HCL 180 MG SUSTAINED RELEASE TAB PO SCH (08:07)
[2016-10-16] MEDS: EZETIMIBE 10 MG TAB PO SCH (08:07)
[2016-10-16] MEDS: SODIUM CHLORIDE 0.9% FLUSH 10 ML FLUSH IV FLUSH SCH (08:07)
--- NOTE | 2016-10-16 09:05 | HHI.PR ---
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 +myoclonus, +mild elevation in ck, tachy, + ssri use with opiods/dopa agonist/muscle relaxer on multiple psychotropic medications with high chance of drug-drug interaction and probable intolerance to ssri eeg- nml recs much better benzo prn bid at home d/c planning today f/u with pcp avoid ssri's (2) Chronic pain disorder ICD Codes: G89.4 - Chronic pain syndrome Status: Chronic (3) Restless legs syndrome (RLS) ICD Codes: G25.81 - Restless legs syndrome Status: Chronic Plan: on dopa agonist (4) Hypertension ICD Codes: I10 - Essential (primary) hypertension Status: Acute Subjective Subjective Comments No acute events reported feels better; hands more steady; able to eat wants benzo for anxiety No headache No chest pain No dyspnea Active Medications Current Medications Medications (Trade) Dose Ordered Sig/Alonzo Route Start Time Stop Time Status Last Admin (Ativan Inj) 1 mg Q6H PRN IV PUSH 10/14/16 22:30 10/16/16 02:20 (NS Flush) 2 ml UNSCH PRN IV FLUSH 10/14/16 22:30 10/16/16 02:20 (NS Flush) 2 ml BID IV FLUSH 10/15/16 09:00 10/16/16 08:07 (Tylenol) 650 mg Q4H PRN PO 10/14/16 22:30 (Zofran Inj) 4 mg Q6H PRN IVP 10/14/16 22:30 (Tylenol) 650 mg Q6H PRN PO 10/14/16 22:30 (Narcan Inj) 0.4 mg UNSCH PRN IV 10/14/16 22:30 (Leslie-Colace) 1 tab BID PO 10/15/16 09:00 10/16/16 08:07 (Milk Of Magnesia Liq) 30 ml Q12H PRN PO 10/14/16 22:30 (Senokot) 17.2 mg Q12H PRN PO 10/14/16 22:30 (Lactulose Liq) 30 ml DAILY PRN PO 10/14/16 22:30 (Zetia) 10 mg DAILY PO 10/15/16 09:00 10/16/16 08:07 (Requip) 0.5 mg HS PO 10/14/16 23:15 10/15/16 20:50 (Isoptin Sr) 180 mg BID PO 10/15/16 09:00 10/16/16 08:07 (Percocet 5-325 Mg) 1 tab Q4H PRN PO 10/15/16 02:15 10/16/16 04:11 (Cipro) 500 mg Q12HR PO 10/15/16 12:15 10/18/16 12:14 10/16/16 08:07 Allergies Allergies Coded Allergies amlodipine (Unverified Allergy, Intermediate, Rash, 10/14/16) atorvastatin (Unverified Allergy, Intermediate, Rash, 10/14/16) penicillin G (Unverified Allergy, Intermediate, Rash, 10/14/16) pravastatin (Unverified Allergy, Intermediate, Rash, 10/14/16) simvastatin (Unverified Allergy, Intermediate, Rash, 10/14/16) pregabalin (Unverified Adverse Reaction, Intermediate, Hallucinations, 10/14/16 ) Review of Systems All other ROS: ROS reviewed as documented in chart Exam I&O / VS Vital Signs Date Time Temp Pulse Resp B/P (MAP) Pulse Ox O2 Delivery O2 Flow Rate FiO2 10/16/16 08:19 97.8 83 18 126/65 (85) 98 10/16/16 04:00 96 10/16/16 03:10 98.6 91 18 135/68 (90) 93 10/16/16 00:00 96 10/15/16 23:56 98.1 94 17 133/74 (93) 93 10/15/16 21:10 108 10/15/16 21:05 98.3 101 18 139/62 (87) 97 10/15/16 16:00 99.1 94 18 150/65 (93) 96 10/15/16 12:00 97.9 94 18 139/60 (86) 96 General: Alert and Oriented, No acute distress Eye: EOMI Respiratory: Non-labored respirations Neurologic: Alert, Oriented, Normal sensory, CN II-XII intact Psychiatric: Cooperative, Appropriate mood & affect, Normal judgement, Non- suicidal Exam Comments ox 3, no aphasia, follows, no head/neck dyskinesias; minimal ue asterixis, able to raise all 4 ext to gravity, msr 2-3+, no ankle clonus, negative babinski Objective Micro and Labs Laboratory Tests Test 10/15/16 13:33 White Blood Count 10.3 Red Blood Count 3.89 Hemoglobin 12.0 Hematocrit 35.8 Mean Corpuscular Volume 91.8 Mean Corpuscular Hemoglobin 30.9 Mean Corpuscular Hemoglobin Concent 33.7 Red Cell Distribution Width 12.7 Platelet Count 267 Mean Platelet Volume 7.7 Neutrophils (%) (Auto) 55.3 Lymphocytes (%) (Auto) 37.3 Monocytes (%) (Auto) 5.6 Eosinophils (%) (Auto) 1.0 Basophils (%) (Auto) 0.8 Neutrophils # (Auto) 5.7 Lymphocytes # (Auto) 3.9 Monocytes # (Auto) 0.6 Eosinophils # (Auto) 0.1 Basophils # (Auto) 0.1 CBC Comment DIFF FINAL Differential Comment Blood Urea Nitrogen 25 Creatinine 0.53 Random Glucose 111 Calcium Level 8.7 Magnesium Level 2.2 Sodium Level 139 Potassium Level 4.0 Chloride Level 109 Carbon Dioxide Level 22.9 Anion Gap 7 Estimat Glomerular Filtration Rate 112 Problem Qualifiers (1) Hypertension: Qualified Codes: I10 - Essential (primary) hypertension Dick Abarca MD Oct 16, 2016 09:05
--- NOTE | 2016-10-16 09:25 | HHI.PR ---
Subjective Remarks Follow-up for involuntary motor movements. Patient is eating breakfast by herself and no difficulties currently. The patient is feeling much better today. She states involuntary jerking has resolved. She states that her speech difficulties have resolved as well. She is currently at her neurologic baseline, wheelchair/bed bound secondary to chronic back pain. Discussed with neurology, agreed with discontinuing all surgical allergic medications and recommended continuing on twice daily benzos for 2 or 3 weeks as outpatient. The patient has no other acute complaints. The patient lives with her and her daughter who help care for her. Objective Vitals Vital Signs Date Time Temp Pulse Resp B/P (MAP) Pulse Ox O2 Delivery O2 Flow Rate FiO2 10/16/16 08:19 97.8 83 18 126/65 (85) 98 10/16/16 04:00 96 10/16/16 03:10 98.6 91 18 135/68 (90) 93 10/16/16 00:00 96 10/15/16 23:56 98.1 94 17 133/74 (93) 93 10/15/16 21:10 108 10/15/16 21:05 98.3 101 18 139/62 (87) 97 10/15/16 16:00 99.1 94 18 150/65 (93) 96 10/15/16 12:00 97.9 94 18 139/60 (86) 96 I/O 10/15/16 10/15/16 10/15/16 10/16/16 10/16/16 10/16/16 06:59 14:59 22:59 06:59 14:59 22:59 Intake Total 720 ml Balance 720 ml Intake Oral 720 ml # Voids 1 2 8 Result Diagram: 10/15/16 1333 10/15/16 1333 Imaging Last Impressions Brain MRI 10/15/16 0000 Signed Impressions: Service Date/Time: Saturday, October 15, 2016 08:19 - CONCLUSION: 1. Mild to moderate small vessel ischemic demyelination. 2. Nothing acute. Aubrey Lagunas MD Head CT 10/14/16 0000 Signed Impressions: Service Date/Time: Friday, October 14, 2016 20:45 - CONCLUSION: No acute disease. Stable exam without evidence of acute infarct, hemorrhage, mass or edema. Ronn Mcduffie MD Objective Remarks GENERAL: Well-developed well-nourished. In no acute distress. SKIN: Warm and dry. No lesions noted. HEENT: Normocephalic. Pupils equal and round. Mucous membranes pink and moist. CARDIOVASCULAR: Regular rate and rhythm. No murmur appreciated. RESPIRATORY: No accessory muscle use. Clear to auscultation. Breath sounds equal bilaterally. GASTROINTESTINAL: Abdomen soft, non-tender, nondistended. Bowel sounds x4. MUSCULOSKELETAL: No obvious deformities. No clubbing or cyanosis. No edema. NEUROLOGICAL: Awake and alert. Moves upper and lower extremities spontaneously and to command. Normal speech. No jerking or involuntary movements noted. PSYCHIATRIC: Appropriate mood and affect; insight and judgment normal. 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 Now unable to control her movements involving her head and extremities. New Onset Chorea: Suspect secondary to Zoloft/serotonin syndrome. Head CT showed no acute findings. Brain MRI shows mild to moderate small vessel ischemic demyelination; no acute findings. -Symptoms improved. -Consulted neurology, d/w uli Griggs to discharge on Ativan twice daily -Continue IV Ativan prn and start scheduled oral Ativan twice a day -Consulted PT/OT -DC Zoloft and Cymbalta and avoid other serotonergic UTI: +leukocytosis WBC 13K. UA with +nitrites, leuks, occ bacteria. -Started on Cipro 500mg bid x3days -Repeat CBC with resolution of leukocytosis DVT prophylaxis with SCD. Discharge Planning Discussed with neurology, discharge planning later today if patient remains improved. Marcellus Leavitt Oct 16, 2016 09:25
[2016-10-16] MEDS ORDERED: LORazepam 0.5 MG TAB PO SCH (09:30)
[2016-10-16] MEDS ORDERED: LORA-392 PO (12:04)
[2016-10-16] MEDS ORDERED: CIPR-9 PO (12:09)
== END 2016-10-16 14:57 | disposition home or self-care (01) ==
LOC: NEPE 19:59 → NEDA 22:20 → NEPGCP 10-15 00:10
PROVIDERS: ADMIT Hospitalist; ATTEND Hospitalist
DX: I02.9 Rheumatic chorea without heart involvement (principal); G25.79 Other drug induced movement disorders; G25.81 Restless legs syndrome; M54.9 Dorsalgia, unspecified; R51 Headache; G89.4 Chronic pain syndrome; K21.9 Gastro-esophageal reflux disease without esophagitis; I10 Essential (primary) hypertension; R94.31 Abnormal electrocardiogram [ECG] [EKG]
CPT/HCPCS: 70450; 70553; 80048; 80053; 81001; 82550; 82552; 83735; 85025; 93005; 96374; 96376; 97161; 97167; 99285; A9579; G0378; G8987; G8988; J2060

== ENCOUNTER 2016-12-24 20:04 | Emergency (ER) | payer OTHER ==
[~2016-12-24] VITALS: Ht 175.3 cm; Wt 104.5 kg
[~2016-12-24 20:04] MED LIST changes: +CIPR-9 PO; -DULO60 PO; +LORA-392 PO; +TIZA1POW4 PO
[2016-12-24 20:13] VITALS: BP 179/120; PULSE 87; RESP 18; TEMP 98.3; O2SAT 95
[2016-12-24] MEDS ORDERED: LORazepam 2 MG/ML VIAL IV PUSH ONE ×2 (20:30→23:00)
[2016-12-24] MEDS ORDERED: SODIUM CHLORIDE 0.9% FLUSH 10 ML FLUSH IVF PRN (20:30)
[2016-12-24] MEDS ORDERED: SODIUM CHLORID 0.9% 500 ML INJ 500 ML IV ONE (20:30)
--- NOTE | 2016-12-24 21:06 | PD ---
HPI Chief Complaint: Musculoskeletal Complaint Time Seen by Provider: 20:16 Travel History International Travel<30 days: No Contact w/Intl Traveler<30days: No Traveled to known affect area: No History of Present Illness HPI 76-year-old female presents the emergency department via EMS with complaints of generalized muscle spasm and spasmodic movements which have been worsening over the past week. Patient has history of this in the past. Patient is seen by pain management as well as her normal primary care physician. Patient denies fever, chills, or other symptoms. She states her current medications don't seem to be helping. Patient was admitted for acute chorea in September 2016, and was evaluated by Dr. Menjivar. Patient was diagnosed with restless leg syndrome, as well as chronic back pain requiring chronic bedbound status, and was placed on a dopamine antagonist. Patient feels the medications are not working this past few days and she has not been able to sleep. She has her typical chronic pain complaints in her right shoulder and a knee and left ankle as well as her low back. These don't seem to be worse than normal according to the patient. Her biggest concern is her worsening spasmodic motion issues. Patient has multiple allergies including amlodipine, atorvastatin, fluoxetine, prednisone, pravastatin, pregabalin, and simvastatin. PFSH Past Medical History Arthritis: Yes Blood Disorders: No Anxiety: No Depression: No Heart Rhythm Problems: Yes (R bundle branch block) Cancer: No Cardiovascular Problems: Yes High Cholesterol: Yes Chest Pain: No Congestive Heart Failure: No Diabetes: No Diminished Hearing: No Endocrine: No Gastrointestinal Disorders: No GERD: Yes Genitourinary: Yes (Admitted 11/13/15 with non obstructing calculi right kidney) Hypertension: Yes Immune Disorder: No Implanted Vascular Access Dvce: Yes Insomnia: Yes Musculoskeletal: Yes (LOW BACK PAIN) Neurologic: Yes (restless leg syndrome) Psychiatric: No Reproductive: No Respiratory: No Shingles: Yes Thyroid Disease: No Menopausal: Yes Past Surgical History Appendectomy: Yes Body Medical Devices: rods in the back Eye Surgery: Yes (CATARACT) Gynecologic Surgery: Yes (partial hysterectomy) Hysterectomy: Yes Joint Replacement: Yes Other Surgery: Yes (winn rods in back) Social History Alcohol Use: No Tobacco Use: No Substance Use: No Allergies-Medications (Allergen,Severity, Reaction): Coded Allergies: amlodipine (Unverified Allergy, Intermediate, Rash, 12/24/16) atorvastatin (Unverified Allergy, Intermediate, Rash, 12/24/16) penicillin G (Unverified Allergy, Intermediate, Rash, 12/24/16) pravastatin (Unverified Allergy, Intermediate, Rash, 12/24/16) simvastatin (Unverified Allergy, Intermediate, Rash, 12/24/16) fluoxetine (Verified Allergy, Unknown, Twitching, 12/24/16) muscle spasms pregabalin (Unverified Adverse Reaction, Intermediate, Hallucinations, ) Reported Meds & Prescriptions Reported Meds & Active Scripts Active Cipro (Ciprofloxacin HCl) 500 Mg Tab 500 Mg PO Q12HR Ativan (Lorazepam) 0.5 Mg Tab 0.5 Mg PO Q12HR PRN Percocet 5-325 mg (Oxycodone/Acetaminophen) 1 Tab 1 Tab PO Q6H PRN Protonix (Pantoprazole Sodium) 40 Mg Tab 40 Mg PO BID Senna Lax (Sennosides) 8.6 Mg Tab 17.2 Mg PO Q12H PRN 10 Days Reported Tizanidine HCl (Tizanidine HCl (Bulk)) 1 Pow Pow 1 Mg PO QID Hydrochlorothiazide (Miscellaneous Medication) 12.5 Mg Cap 12.5 Mg PO DAILY Requip 0.5 mg (ROPINIROLE HYDROCHLORIDE 0.5 mg) 0.5 Mg Tab 0.5 Mg PO HS Zetia (Ezetimibe) 10 Mg Tab 10 Mg PO DAILY Isoptin 180 Mg Tab Sr (Verapamil HCl) 180 Mg Tabcr 180 Mg PO BID Review of Systems Except as stated in HPI: all other systems reviewed are Neg General / Constitutional: No: Fever Eyes: No: Visual changes HENT: No: Headaches Cardiovascular: No: Chest Pain or Discomfort Respiratory: No: Shortness of Breath Gastrointestinal: No: Abdominal Pain Genitourinary: No: Dysuria Musculoskeletal: Positive: Myalgias, Other (muscle spasms.), No: Pain Skin: No Rash Neurologic: No: Weakness Psychiatric: No: Depression Endocrine: No: Polydipsia Hematologic/Lymphatic: No: Easy Bruising Physical Exam Narrative GENERAL: Patient appears in mild to moderate distress. SKIN: Warm and dry. Normal color. Normal turgor. HEAD: Atraumatic. Normocephalic. EYES: Pupils equal and round. No scleral icterus. No injection or drainage. ENT: No nasal bleeding or discharge. Mucous membranes pink and moist. Pharynx is clear. Airway is patent. NECK: Trachea midline. Supple nontender. CARDIOVASCULAR: Regular rate and rhythm. RESPIRATORY: No accessory muscle use. Clear to auscultation. Breath sounds equal bilaterally. GASTROINTESTINAL: Abdomen soft, non-tender, nondistended. Hepatic and splenic margins not palpable. MUSCULOSKELETAL: Extremities without clubbing, cyanosis, or edema. No obvious deformities. Patient has generalized spasmodic movements to both lower upper extremities. Deep tendon reflexes are 1-2+ bilaterally. Babinski is downward bilaterally. NEUROLOGICAL: Awake and alert. No obvious cranial nerve deficits. Motor grossly within normal limits. Patient can lift arms and lower extremities against gravity. Patient has decreased ability to do finger to nose. Normal speech. PSYCHIATRIC: Appropriate mood and affect; insight and judgment normal. Data Data Last Documented VS Vital Signs Date Time Temp Pulse Resp B/P (MAP) Pulse Ox O2 Delivery O2 Flow Rate FiO2 12/24/16 20:13 98.3 87 18 179/120 (139) 95 Orders Orders Ckmb (Isoenzyme) Profile (12/24/16 20:21) Complete Blood Count With Diff (12/24/16 20:21) Comprehensive Metabolic Panel (12/24/16 20:21) Magnesium (Mg) (12/24/16 20:21) Prothrombin Time / Inr (Pt) (12/24/16 20:21) Act Partial Throm Time (Ptt) (12/24/16 20:21) Chest, Single Ap (12/24/16 20:21) Ecg Monitoring (12/24/16 20:21) Bilateral Bp Monitoring (12/24/16 20:21) Iv Access Insert/Monitor (12/24/16 20:21) Oximetry (12/24/16 20:21) Oxygen Administration (12/24/16 20:21) Sodium Chloride 0.9% Flush (Ns Flush) (12/24/16 20:30) Sodium Chlorid 0.9% 500 Ml Inj (Ns 500 M (12/24/16 20:30) Lorazepam Inj (Ativan Inj) (12/24/16 20:30) Urinary Catheter Insert/Apply (12/24/16 20:21) CKMB (12/24/16 20:40) CKMB% (12/24/16 20:40) Labs Laboratory Tests Test 12/24/16 20:40 White Blood Count 11.1 TH/MM3 Red Blood Count 4.30 MIL/MM3 Hemoglobin 13.4 GM/DL Hematocrit 39.8 % Mean Corpuscular Volume 92.5 FL Mean Corpuscular Hemoglobin 31.2 PG Mean Corpuscular Hemoglobin Concent 33.7 % Red Cell Distribution Width 13.3 % Platelet Count 242 TH/MM3 Mean Platelet Volume 8.3 FL Neutrophils (%) (Auto) 47.2 % Lymphocytes (%) (Auto) 44.8 % Monocytes (%) (Auto) 4.9 % Eosinophils (%) (Auto) 2.4 % Basophils (%) (Auto) 0.7 % Neutrophils # (Auto) 5.2 TH/MM3 Lymphocytes # (Auto) 5.0 TH/MM3 Monocytes # (Auto) 0.5 TH/MM3 Eosinophils # (Auto) 0.3 TH/MM3 Basophils # (Auto) 0.1 TH/MM3 CBC Comment DIFF FINAL Differential Comment Prothrombin Time 10.4 SEC Prothromb Time International Ratio 0.9 RATIO Activated Partial Thromboplast Time 25.4 SEC Blood Urea Nitrogen 20 MG/DL Creatinine 0.57 MG/DL Random Glucose 87 MG/DL Total Protein 7.5 GM/DL Albumin 3.7 GM/DL Calcium Level 9.1 MG/DL Magnesium Level 2.1 MG/DL Alkaline Phosphatase 115 U/L Aspartate Amino Transf (AST/SGOT) 28 U/L Alanine Aminotransferase (ALT/SGPT) 32 U/L Total Bilirubin 0.4 MG/DL Sodium Level 136 MEQ/L Potassium Level 4.0 MEQ/L Chloride Level 106 MEQ/L Carbon Dioxide Level 20.8 MEQ/L Anion Gap 9 MEQ/L Estimat Glomerular Filtration Rate 103 ML/MIN Total Creatine Kinase 241 U/L [facility] Medical Decision Making Medical Screen Exam Complete: Yes Emergency Medical Condition: Yes Medical Record Reviewed: Yes Differential Diagnosis Myalgias. Muscle spasm. Chorea. Electrolyte imbalance. Urinary tract infection. Restless leg syndrome flare. Narrative Course Patient is medically stable at time of exam. Chest x-ray is ordered. Liu catheter was placed and urinalysis is obtained. Laboratory CBC, CMP, and CPK. CBC shows slight leukocytosis of 11.1. Otherwise unremarkable. Patient is given 1 mg of lorazepam IV. CMP unremarkable except carbon dioxide is 20.8, is 20, creatinine is 0.57. Total creatinine kinase Slightly elevated at 241. Coagulation studies are normal. Chest x-ray is unchanged from previous with no acute findings per radiologist. At reassessment the patient is sleeping quietly and not moving. Patient is felt to be stable for discharge to home. Patient to follow up with her primary care physician and/or pain management physician tomorrow. Diagnosis Primary Impression: Restless legs syndrome (RLS) Additional Impression: Acute chorea Referrals: Pain Management Primary Care Physician Patient Instructions: General Instructions, Restless Legs Syndrome (ED) Additional Instructions: Patient is felt to be stable for discharge to home. Patient to follow up with her primary care physician and/or pain management physician tomorrow. Med/Other Pt SpecificInfo: No Change to Meds Disposition: 01 DISCHARGE HOME Condition: Stable Bruce Covarrubias Dec 24, 2016 21:06
--- NOTE | 2016-12-24 21:12 | RADRPT ---
EXAM DATE/TIME: 12/24/2016 20:39 [facility] COMPARISON: CHEST SINGLE AP, October 24, 2015, 12:41. INDICATIONS : Short of breath. MEDICAL HISTORY : None. SURGICAL HISTORY : None. ENCOUNTER: Initial ACUITY: 1 day PAIN SCORE: 0/10 LOCATION: Bilateral chest FINDINGS: A single AP semierect view of the chest was obtained and again demonstrate stable elevation of the ri ght hemidiaphragm. There are no new confluent infiltrates or effusions. The heart size remains within normal limits with no perihilar edema. Degenerative changes are again noted in both glenohumeral yvonne nts right greater than left. CONCLUSION: Stable appearance with no acute cardiac pulmonary disease. Rudi Snowden MD on December 24, 2016 at 21:08 Board Certified Radiologist. This report was verified electronically.
[2016-12-24 21:15] LABS: AUTOMATED NEUTROPHIL # 5.2 TH/MM3 (1.8-7.7); BASOPHIL # 0.1 TH/MM3 (0-0.2); BASOPHIL % 0.7 % (0.0-2.0); EOSINOPHIL # 0.3 TH/MM3 (0-0.4); EOSINOPHIL % 2.4 % (0.0-4.0); HEMATOCRIT 39.8 % (35.0-46.0); HEMO FLAGS DIFF FINAL; LYMPH % 44.8 % (9.0-44.0); MEAN CELL VOLUME 92.5 FL (80.0-100.0); MEAN CORPUSCULAR HEMOGLOBIN 31.2 PG (27.0-34.0); MEAN CORPUSCULAR HGB CONC 33.7 % (32.0-36.0); MONO % 4.9 % (0.0-8.0); NEUT % 47.2 % (16.0-70.0); PLATELET COUNT 242 TH/MM3 (150-450); RED CELL DISTRIBUTION WIDTH 13.3 % (11.6-17.2); WHITE BLOOD COUNT 11.1 TH/MM3 (4.0-11.0)
[2016-12-24 21:26] LABS: APTT (PATIENT) 25.4 SEC (24.3-30.1); INTERNATIONAL NORMALIZED RATIO 0.9 RATIO; PROTHROMBIN TIME - PATIENT 10.4 SEC (9.8-11.6)
[2016-12-24 21:42] LABS: ALT (GPT) 32 U/L (10-53)
[2016-12-24 21:49] LABS: ALKALINE PHOSPHATASE 115 U/L (45-117); ANION GAP 9 MEQ/L (5-15); AST (GOT) 28 U/L (15-37); BICARBONATE 20.8 MEQ/L (21.0-32.0); BLOOD UREA NITROGEN 20 MG/DL (7-18); CHLORIDE 106 MEQ/L (98-107); CREATINE KINASE 241 U/L (26-192); GLOMERULAR FILTRATION RATE 103 ML/MIN (>89); MAGNESIUM 2.1 MG/DL (1.5-2.5); SODIUM (NA) 136 MEQ/L (136-145); TOTAL BILIRUBIN ADULT 0.4 MG/DL (0.2-1.0)
--- NOTE | 2016-12-24 22:13 | PD ---
Data Data Last Documented VS Vital Signs Date Time Temp Pulse Resp B/P (MAP) Pulse Ox O2 Delivery O2 Flow Rate FiO2 12/24/16 20:13 98.3 87 18 179/120 (139) 95 Orders Orders Ckmb (Isoenzyme) Profile (12/24/16 20:21) Complete Blood Count With Diff (12/24/16 20:21) Comprehensive Metabolic Panel (12/24/16 20:21) Magnesium (Mg) (12/24/16 20:21) Prothrombin Time / Inr (Pt) (12/24/16 20:21) Act Partial Throm Time (Ptt) (12/24/16 20:21) Chest, Single Ap (12/24/16 20:21) Ecg Monitoring (12/24/16 20:21) Bilateral Bp Monitoring (12/24/16 20:21) Iv Access Insert/Monitor (12/24/16 20:21) Oximetry (12/24/16 20:21) Oxygen Administration (12/24/16 20:21) Sodium Chloride 0.9% Flush (Ns Flush) (12/24/16 20:30) Sodium Chlorid 0.9% 500 Ml Inj (Ns 500 M (12/24/16 20:30) Lorazepam Inj (Ativan Inj) (12/24/16 20:30) Urinary Catheter Insert/Apply (12/24/16 20:21) CKMB (12/24/16 20:40) CKMB% (12/24/16 20:40) Ed Discharge Order (12/24/16 22:19) Lorazepam Inj (Ativan Inj) (12/24/16 23:00) Labs Laboratory Tests Test 12/24/16 20:40 White Blood Count 11.1 TH/MM3 Red Blood Count 4.30 MIL/MM3 Hemoglobin 13.4 GM/DL Hematocrit 39.8 % Mean Corpuscular Volume 92.5 FL Mean Corpuscular Hemoglobin 31.2 PG Mean Corpuscular Hemoglobin Concent 33.7 % Red Cell Distribution Width 13.3 % Platelet Count 242 TH/MM3 Mean Platelet Volume 8.3 FL Neutrophils (%) (Auto) 47.2 % Lymphocytes (%) (Auto) 44.8 % Monocytes (%) (Auto) 4.9 % Eosinophils (%) (Auto) 2.4 % Basophils (%) (Auto) 0.7 % Neutrophils # (Auto) 5.2 TH/MM3 Lymphocytes # (Auto) 5.0 TH/MM3 Monocytes # (Auto) 0.5 TH/MM3 Eosinophils # (Auto) 0.3 TH/MM3 Basophils # (Auto) 0.1 TH/MM3 CBC Comment DIFF FINAL Differential Comment Prothrombin Time 10.4 SEC Prothromb Time International Ratio 0.9 RATIO Activated Partial Thromboplast Time 25.4 SEC Blood Urea Nitrogen 20 MG/DL Creatinine 0.57 MG/DL Random Glucose 87 MG/DL Total Protein 7.5 GM/DL Albumin 3.7 GM/DL Calcium Level 9.1 MG/DL Magnesium Level 2.1 MG/DL Alkaline Phosphatase 115 U/L Aspartate Amino Transf (AST/SGOT) 28 U/L Alanine Aminotransferase (ALT/SGPT) 32 U/L Total Bilirubin 0.4 MG/DL Sodium Level 136 MEQ/L Potassium Level 4.0 MEQ/L Chloride Level 106 MEQ/L Carbon Dioxide Level 20.8 MEQ/L Anion Gap 9 MEQ/L Estimat Glomerular Filtration Rate 103 ML/MIN Total Creatine Kinase 241 U/L Creatine Kinase MB 9.3 NG/ML Creatine Kinase MB % 3.9 % [facility] Medical Record Reviewed: Yes Supervised Visit with JOI: Yes Narrative Course I, Dr. Irwin, have reviewed the advance practice practitioner's documentation and am in agreement, met with the patient face to face, made the diagnosis, and the medical decision making was done by me. *My assessment and Findings: Patient is 76 years old with chronic choreoathetoid activity. Her workup is unremarkable. She had an excellent response to Ativan. Please refer to the mid-level note. She is ready for discharge. Condition: Stable Sabino Irwin MD Dec 24, 2016 22:13
[2016-12-24 22:43] LABS: CKMB 9.3 NG/ML (0.5-3.6)
[2016-12-25 08:30] VITALS: BP 170/73; PULSE 80; RESP 19; O2SAT 98
== END 2016-12-25 09:56 | disposition home or self-care (01) ==
LOC: NEPC 20:04
DX: G25.81 Restless legs syndrome (principal); G25.5 Other chorea; M19.90 Unspecified osteoarthritis, unspecified site; I45.10 Unspecified right bundle-branch block; E78.00 Pure hypercholesterolemia, unspecified; I10 Essential (primary) hypertension; Z79.899 Other long term (current) drug therapy; Z74.01 Bed confinement status
CPT/HCPCS: 51702; 71010; 80053; 82550; 82552; 83735; 85025; 85610; 85730; 96361; 96374; 99284; J2060; J7040

== ENCOUNTER 2017-04-10 19:13 | Emergency (ER) | payer MEDICARE, OTHER ==
[2017-04-10 19:19] VITALS: BP 128/76; PULSE 86; RESP 19; TEMP 98.9; O2SAT 97
[2017-04-10 19:49] VITALS: BP 138/87; PULSE 86; RESP 18; O2SAT 98
[2017-04-10] MEDS ORDERED: EZET10 PO (19:54)
[2017-04-10] MEDS ORDERED: PERC10TA27 PO (19:54)
[2017-04-10] MEDS ORDERED: ROPI2 PO (19:54)
[2017-04-10] MEDS ORDERED: MAGN250T11 PO (19:54)
[2017-04-10] MEDS ORDERED: TIZA4TAB PO (19:54)
[2017-04-10] MEDS ORDERED: VERA180C3 PO (19:54)
[2017-04-10 20:00] LABS: AUTOMATED NEUTROPHIL # 6.7 TH/MM3 (1.8-7.7); BASOPHIL # 0.1 TH/MM3 (0-0.2); BASOPHIL % 0.8 % (0.0-2.0); EOSINOPHIL # 0.1 TH/MM3 (0-0.4); EOSINOPHIL % 0.8 % (0.0-4.0); HEMOGLOBIN 13.7 GM/DL (11.6-15.3); LYMPH % 35.9 % (9.0-44.0); LYMPHOCYTE # 4.3 TH/MM3 (1.0-4.8); MEAN CELL VOLUME 91.8 FL (80.0-100.0); MEAN CORPUSCULAR HEMOGLOBIN 31.3 PG (27.0-34.0); MEAN CORPUSCULAR HGB CONC 34.1 % (32.0-36.0); MEAN PLATELET VOLUME 7.6 FL (7.0-11.0); MONO % 5.8 % (0.0-8.0); MONOCYTE # 0.7 TH/MM3 (0-0.9); NEUT % 56.7 % (16.0-70.0); PLATELET COUNT 279 TH/MM3 (150-450); RED BLOOD COUNT 4.36 MIL/MM3 (4.00-5.30); WHITE BLOOD COUNT 11.9 TH/MM3 (4.0-11.0)
[2017-04-10 20:20] LABS: ALBUMIN 3.7 GM/DL (3.4-5.0); ALT (GPT) 35 U/L (10-53); AST (GOT) 22 U/L (15-37); BICARBONATE 25.4 MEQ/L (21.0-32.0); BLOOD UREA NITROGEN 26 MG/DL (7-18); CALCIUM 9.2 MG/DL (8.5-10.1); CHLORIDE 102 MEQ/L (98-107); CREATININE 0.77 MG/DL (0.50-1.00); GLOMERULAR FILTRATION RATE 73 ML/MIN (>89); GLUCOSE,RANDOM 101 MG/DL (74-106); SODIUM (NA) 136 MEQ/L (136-145)
[2017-04-10 20:22] LABS: ALKALINE PHOSPHATASE 138 U/L (45-117); TOTAL BILIRUBIN ADULT 0.3 MG/DL (0.2-1.0); TOTAL PROTEIN 7.7 GM/DL (6.4-8.2)
--- NOTE | 2017-04-10 20:27 | PD ---
HPI Chief Complaint: General Weakness Time Seen by Provider: 19:55 Travel History International Travel<30 days: No Contact w/Intl Traveler<30days: No Traveled to known affect area: No History of Present Illness HPI Patient is a 76-year-old female who lives alone. She reports that she has been feeling weak and tired diaphoretic for the last few days. Patient says she is bedbound but her daughter and her help her move around but she is unable to ambulate without assistance and is only in a chair or in the bed for all the time. Patient says 3 weeks ago she had a cough congestion that resolved. She did not see a doctor or take any medications for that. In the ER her vitals were within normal limits and she has no chest pain no shortness of breath is general weakness she feels. She has had a history of UTIs in the past. Her past medical history is significant for GERD severe lumbar sacral issues with multiple surgeries and leg weakness. Her main complaint is now global weakness but is not focal weakness denies dysuria again she is not taking any specific medications for this feeling daughter is bedside PENDING SALE TO [facility] Past Medical History Arthritis: Yes Blood Disorders: No Anxiety: No Depression: No Heart Rhythm Problems: Yes (R bundle branch block) Cancer: No Cardiovascular Problems: Yes High Cholesterol: Yes Chest Pain: No Congestive Heart Failure: No Diabetes: No Diminished Hearing: No Endocrine: No Gastrointestinal Disorders: No GERD: Yes Genitourinary: Yes (Admitted 11/13/15 with non obstructing calculi right kidney) Hypertension: Yes Immune Disorder: No Implanted Vascular Access Dvce: Yes Insomnia: Yes Musculoskeletal: Yes (LOW BACK PAIN) Neurologic: Yes (restless leg syndrome) Psychiatric: No Reproductive: No Respiratory: No Shingles: Yes Thyroid Disease: No Tetanus Vaccination: < 5 Years ?: Not Menopausal: Yes Past Surgical History Appendectomy: Yes Body Medical Devices: rods in the back Eye Surgery: Yes (CATARACT) Gynecologic Surgery: Yes (partial hysterectomy) Hysterectomy: Yes Joint Replacement: Yes Other Surgery: Yes (winn rods in back) Social History Alcohol Use: No Tobacco Use: No Substance Use: No Allergies-Medications (Allergen,Severity, Reaction): Coded Allergies: amlodipine (Unverified Allergy, Intermediate, Rash, 04/10/17) atorvastatin (Unverified Allergy, Intermediate, Rash, 04/10/17) penicillin G (Unverified Allergy, Intermediate, Rash, 04/10/17) pravastatin (Unverified Allergy, Intermediate, Rash, 04/10/17) simvastatin (Unverified Allergy, Intermediate, Rash, 04/10/17) fluoxetine (Verified Allergy, Unknown, Twitching, 04/10/17) muscle spasms pregabalin (Unverified Adverse Reaction, Intermediate, Hallucinations, ) Reported Meds & Prescriptions Reported Meds & Active Scripts Active Levaquin (Levofloxacin) 750 Mg Tablet 750 Mg PO DAILY Reported Magnesium Oxide 250 Mg Tab 250 Mg PO BID Percocet (Oxycodone-Acetaminophen) 10-325 mg Tab 1 Tab PO Q4H PRN Requip (Ropinirole HCl) 2 Mg Tab 2 Mg PO BID Tizanidine (Tizanidine HCl) 4 Mg Tab 4 Mg PO BID Zetia (Ezetimibe) 10 Mg Tab 10 Mg PO DAILY Verapamil SR (Verapamil HCl) 180 Mg Cap 180 Mg PO BID Review of Systems Except as stated in HPI: all other systems reviewed are Neg General / Constitutional: Positive: Other (Weakness general) HENT: No: Headaches Cardiovascular: No: Chest Pain or Discomfort Respiratory: Positive: Cough, No: Shortness of Breath Gastrointestinal: No: Diarrhea, Abdominal Pain Genitourinary: No: Dysuria Musculoskeletal: Positive: Weakness, No: Myalgias Physical Exam Narrative GENERAL: awake alert, no apparent distress or AMS SKIN: Warm and dry. HEAD: Atraumatic. Normocephalic. EYES: Pupils equal and round. No scleral icterus. No injection or drainage. ENT: No nasal bleeding or discharge. Mucous membranes pink and moist. NECK: Trachea midline. No JVD. CARDIOVASCULAR: Regular rate and rhythm. RESPIRATORY: No accessory muscle use. Clear to auscultation. Breath sounds equal bilaterally. GASTROINTESTINAL: Abdomen soft, non-tender, nondistended. Hepatic and splenic margins not palpable. MUSCULOSKELETAL: Extremities without clubbing, cyanosis, or edema. No obvious deformities. NEUROLOGICAL: Awake and alert. No obvious cranial nerve deficits. Motor grossly within normal limits. Five out of 5 muscle strength in the arms and legs. Normal speech. PSYCHIATRIC: Appropriate mood and affect; Data Data Last Documented VS Vital Signs Date Time Temp Pulse Resp B/P (MAP) Pulse Ox O2 Delivery O2 Flow Rate FiO2 04/11/17 09:53 93 20 140/67 (91) 97 04/10/17 23:37 Room Air 04/10/17 19:19 98.9 Orders Orders Electrocardiogram (04/10/17 19:35) Complete Blood Count With Diff (04/10/17 19:35) Comprehensive Metabolic Panel (04/10/17 19:35) Prothrombin Time / Inr (Pt) (04/10/17 19:35) Act Partial Throm Time (Ptt) (04/10/17 19:35) Urinalysis - C+S If Indicated (04/10/17 19:35) Chest, Pa & Lat (04/10/17 ) Ct Thorax/ Chest Wo Iv Contras (04/10/17 ) Sodium Chlor 0.9% 250 Ml Inj (Ns 250 Ml (04/10/17 21:15) Urine Culture (04/10/17 20:30) Levofloxacin 750 Mg Premix Inj (Levaquin (04/10/17 21:30) Oxycodone-Acetamin 5-325 Mg (Percocet (04/10/17 22:45) Verapamil Sr (Isoptin Sr) (04/10/17 23:45) Ropinirole Hcl (Requip) (04/10/17 23:45) Tizanidine Hcl (Zanaflex) (04/10/17 23:45) Ed Discharge Order (04/11/17 06:25) Labs Laboratory Tests Test 04/10/17 19:30 04/10/17 20:30 White Blood Count 11.9 TH/MM3 Red Blood Count 4.36 MIL/MM3 Hemoglobin 13.7 GM/DL Hematocrit 40.0 % Mean Corpuscular Volume 91.8 FL Mean Corpuscular Hemoglobin 31.3 PG Mean Corpuscular Hemoglobin Concent 34.1 % Red Cell Distribution Width 13.0 % Platelet Count 279 TH/MM3 Mean Platelet Volume 7.6 FL Neutrophils (%) (Auto) 56.7 % Lymphocytes (%) (Auto) 35.9 % Monocytes (%) (Auto) 5.8 % Eosinophils (%) (Auto) 0.8 % Basophils (%) (Auto) 0.8 % Neutrophils # (Auto) 6.7 TH/MM3 Lymphocytes # (Auto) 4.3 TH/MM3 Monocytes # (Auto) 0.7 TH/MM3 Eosinophils # (Auto) 0.1 TH/MM3 Basophils # (Auto) 0.1 TH/MM3 CBC Comment DIFF FINAL Differential Comment Prothrombin Time 10.0 SEC Prothromb Time International Ratio 1.0 RATIO Activated Partial Thromboplast Time 24.5 SEC Blood Urea Nitrogen 26 MG/DL Creatinine 0.77 MG/DL Random Glucose 101 MG/DL Total Protein 7.7 GM/DL Albumin 3.7 GM/DL Calcium Level 9.2 MG/DL Alkaline Phosphatase 138 U/L Aspartate Amino Transf (AST/SGOT) 22 U/L Alanine Aminotransferase (ALT/SGPT) 35 U/L Total Bilirubin 0.3 MG/DL Sodium Level 136 MEQ/L Potassium Level 4.6 MEQ/L Chloride Level 102 MEQ/L Carbon Dioxide Level 25.4 MEQ/L Anion Gap 9 MEQ/L Estimat Glomerular Filtration Rate 73 ML/MIN Urine Color YELLOW Urine Turbidity HAZY Urine pH 5.0 Urine Specific [place] 1.016 Urine Protein NEG mg/dL Urine Glucose (UA) NEG mg/dL Urine Ketones NEG mg/dL Urine Occult Blood NEG Urine Nitrite POS Urine Bilirubin NEG Urine Urobilinogen LESS THAN 2.0 MG/DL Urine Leukocyte Esterase LARGE Urine RBC LESS THAN 1 /hpf Urine WBC 8 /hpf Urine Squamous Epithelial Cells <1 /hpf Urine Bacteria MOD /hpf Urine Hyaline Casts 1 /lpf Urine Mucus FEW /lpf Microscopic Urinalysis Comment CATH-CULTURE IND MDM Medical Decision Making Medical Screen Exam Complete: Yes Emergency Medical Condition: Yes Differential Diagnosis viral illness vs UTI vs PNA vs sepsis vs flu other Narrative Course pt labs and urine indicate mild UTI causing her weakness . Levaquin as outpt and close follow up with PCP to re check urine after PO levaquin course Diagnosis Primary Impression: Urinary tract infection Qualified Codes: N30.00 - Acute cystitis without hematuria Scripts Levofloxacin (Levaquin) 750 Mg Tablet 750 MG PO DAILY for Infection, #5 TAB 0 Refills Prov: Hernando Chavez MD 04/11/17 Hernando Chavez MD Apr 10, 2017 20:27
--- NOTE | 2017-04-10 20:34 | RADRPT ---
EXAM DATE/TIME: 04/10/2017 20:19 [facility] COMPARISON: No previous studies available for comparison. INDICATIONS : Cough MEDICAL HISTORY : Hypertension. Gastroesophageal reflux disease. SURGICAL HISTORY : Tonsillectomy. Appendectomy. Nirmal rods. Left ankle repair. ENCOUNTER: Initial ACUITY: 1 week PAIN SCORE: 0/10 LOCATION: chest FINDINGS: PA and lateral views of the chest demonstrate elevated right hemidiaphragm. Basilar atelectasis. Tort uous aorta. Degenerative changes in the spine with scoliosis. CONCLUSION: 1. Elevated right hemidiaphragm. Mild basilar atelectasis. Mich Yarbrough MD on April 10, 2017 at 20:32 Board Certified Radiologist. This report was verified electronically.
[2017-04-10 21:14] LABS: BACTERIA, URINE MOD /hpf; BILIRUBIN, URINE NEG (NEG); BLOOD, URINE NEG (NEG); GLUCOSE,URINE NEG (NEG); HYALINE CAST, URINE 1 /lpf (RARE); KETONE, URINE NEG (NEG); MUCUS URINE FEW /lpf (OCC); NITRITE,URINE POS (NEG); SQUAMOUS EPITHELIAL CELL URINE <1 /hpf (0-5); URINE COLOR YELLOW (YELLW/STRAW); URINE LEUKOCYTE ESTERASE LARGE (NEG)
[2017-04-10] MEDS ORDERED: SODIUM CHLOR 0.9% 250 ML INJ 250 ML IV ONE (21:15)
--- NOTE | 2017-04-10 21:28 | RADRPT ---
EXAM DATE/TIME: 04/10/2017 21:10 [facility] COMPARISON: No previous studies available for comparison. INDICATIONS : Weakness,evaluate for pneumonia. RADIATION DOSE: 16.69 CTDIvol (mGy) MEDICAL HISTORY : Cardiovascular disease. Hypertension. SURGICAL HISTORY : Smith rods ENCOUNTER: Initial ACUITY: 1 day PAIN SCALE: 0/10 LOCATION: Bilateral chest TECHNIQUE: Volumetric scanning of the chest was performed. Using automated exposure control and adjustment of t he mA and/or kV according to patient size, radiation dose was kept as low as reasonably achievable to obtain optimal diagnostic quality images. DICOM format image data is available electronically for r eview and comparison. Follow-up recommendations for detected pulmonary nodules are based at a minimum on nodule size and pa tient risk factors according to Fleischner Society Guidelines. FINDINGS: There is elevation of right hemidiaphragm and compressive atelectasis the right lung base. Small righ t effusion. Minimal left basilar airspace disease posteriorly, similar to 2-16 and likely chronic scarring or ate lectasis. Small bullous lesion upper right lung. There is no hilar, mediastinal or axillary adenopathy. No acute findings in the upper abdomen. Upper pole left renal cyst stable since 2016. Moderate kenny ry calcifications. CONCLUSION: 1. Elevated right hemidiaphragm with bibasilar atelectasis or scarring, right greater than left. No a denopathy. Mild coronary calcifications. Mich Yarbrough MD on April 10, 2017 at 21:21 Board Certified Radiologist. This report was verified electronically.
[2017-04-10] MEDS ORDERED: LEVOFLOXACIN 750 MG PREMIX INJ 150 ML IV ONE (21:30)
[2017-04-10 22:40] VITALS: BP 156/70; PULSE 88; RESP 18; O2SAT 97
[2017-04-10] MEDS ORDERED: oxyCODONE/ACETAMINOPHEN 5 MG/325 MG TAB PO ONE (22:45)
[2017-04-10 23:37] VITALS: BP 168/75; PULSE 86; RESP 18; O2SAT 97
[2017-04-10] MEDS ORDERED: VERAPAMIL HCL 180 MG SUSTAINED RELEASE TAB PO ONE (23:45)
[2017-04-11] MEDS ORDERED: LEVA750T9 PO (03:24)
[2017-04-11 08:44] VITALS: BP 140/67; PULSE 93; RESP 20; O2SAT 97
[2017-04-11 09:53] VITALS: BP 140/67
--- NOTE | 2017-04-12 00:28 | EKG ---
Date Performed: 04/10/2017 Time Performed: 19:53:23 PTAGE: 76 years EKG: Sinus rhythm RIGHT BUNDLE BRANCH BLOCK LEFT ANTERIOR FASCICULAR BLOCK ABNORMAL ECG PREVIOUS TRACING : 10/14/2016 20.32 Since the prior tracing, there has been no significant hurt DOCTOR: Eda Salas Interpretating Date/Time 04/12/2017 00:26:48
== END 2017-04-11 09:57 | disposition home or self-care (01) ==
LOC: NEPC 19:13
DX: N30.00 Acute cystitis without hematuria (principal); B96.20 Unspecified Escherichia coli [E. coli] as the cause of diseases classified elsewhere; I45.10 Unspecified right bundle-branch block; K21.9 Gastro-esophageal reflux disease without esophagitis; I10 Essential (primary) hypertension; G25.81 Restless legs syndrome; Z88.8 Allergy status to other drugs, medicaments and biological substances; Z88.0 Allergy status to penicillin
CPT/HCPCS: 71046; 71250; 80053; 81001; 85025; 85610; 85730; 87077; 87086; 87186; 93005; 96365; 99285; J1956; J7050

== ENCOUNTER 2017-08-27 18:19 | Observation (INO) ==
--- NOTE | 2017-08-27 20:08 | XR ---
EXAM DATE: 08/27/2017 8:01 PM EDT AGE/SEX: 77 years / Female INDICATIONS: Short of breath. CLINICAL DATA: This is the patient's initial encounter. Patient reports that signs and symptoms have been present for 1 day and indicates a pain score of 0/10. MEDICAL/SURGICAL HISTORY: Hypertension. Gastroesophageal reflux disease. Tonsillectomy. Appen dectomy. joe rods, left repair. COMPAR[place] [facility] [place]. . FINDINGS: Elevated right hemidiaphragm. Mild basilar atelectasis. Tortuous aorta. No pneumothorax or significan t effusion. Advanced osteoarthritis of the shoulders, right greater than left. CONCLUSION: Elevated right hemidiaphragm. Mild basilar atelectasis. No significant effusion. Electronically signed by: Mich Yarbrough MD 08/27/2017 8:06 PM EDT
[2017-08-27 21:06] LABS: Baso # (Auto) 0.1 th/mm3 (0.0-0.2); Baso % (Auto) 0.6 % (0.0-2.0); Eos # (Auto) 0.2 th/mm3 (0.0-0.4); Eos % (Auto) 2.3 % (0.0-4.0); Hematocrit 40.5 % (35.0-46.0); Hemoglobin 13.5 gm/dL (11.6-15.3); Lymph # (Auto) 4.8 th/mm3 (1.0-4.8); Lymph % (Auto) 53.1 % (9.0-44.0); Mean Corpuscular HGB Conc 33.4 % (32.0-36.0); Mean Corpuscular Hemoglobin 30.3 pg (27.0-34.0); Mean Corpuscular Volume 90.7 fL (80.0-100.0); Mean Platelet Volume 8.5 fL (7.0-11.0); Mono # (Auto) 0.5 th/mm3 (0.0-0.9); Mono % (Auto) 5.6 % (0.0-8.0); Neut # (Auto) 3.5 th/mm3 (1.8-7.7); Neut % (Auto) 38.4 % (16.0-70.0); Platelet Count 260 th/mm3 (150-450); Prothrombin Time 9.7 sec (9.8-11.6); Red Blood Count 4.47 mil/mm3 (4.00-5.30); Red Cell Distribution Width 14.8 % (11.6-17.2); White Blood Count 9.1 th/mm3 (4.0-11.0)
--- NOTE | 2017-08-27 21:06 | ED ---
HPI General Chief complaint: Weakness Stated complaint: Evac/Medical Time Seen by Provider: 08/27/17 19:25 History of Present Illness HPI Narrative: 77-year-old female presents to the emergency department by EMS transport from home for evaluation of progressively worsening tremor over the past month with escalation over the 24 hours. Patient states she is scheduled to see neurologist Dr. Patel for evaluation of her progression of tremor. Patient states they are trying to evaluate if she has ALS multiple sclerosis or Parkinson's. Patient has known restless leg syndrome. Patient has been bedbound for some time at least 6 months. Patient is able to move to wheelchair with assistance of oldest daughter and at times but this past 3 weeks or so has been in the bed bound at all times and has not been able to get into her wheelchair even with assistance patient has been nonweightbearing for months. Patient reports no fever or chills. Patient has chronic congestion and cough but nonproductive cough no report of nausea vomiting or diarrhea. Patient states that she cannot stop her spastic tremor. Patient is already followed by Dr. Patel's office via his PA for pain management. Patient states pain is increasing as well as tremor. Related Data Home Medications Medication Instructions Recorded Confirmed carbidopa-levodopa 08/27/17 oxycodone-acetaminophen [Percocet] 1 tab PO Q6H PRN 08/27/17 08/27/17 primidone 50 mg PO TID 08/27/17 08/27/17 verapamil 80 mg PO BID 08/27/17 08/27/17 Allergies Allergy/AdvReac Type Severity Reaction Status Date / Time amlodipine Allergy Intermediate Rash Verified 08/27/17 18:48 atorvastatin Allergy Intermediate Rash Verified 08/27/17 18:48 penicillin G Allergy Intermediate Rash Verified 08/27/17 18:48 pravastatin Allergy Intermediate Rash Verified 08/27/17 18:48 simvastatin Allergy Intermediate Rash Verified 08/27/17 18:48 fluoxetine Allergy Unknown Twitching Verified 08/27/17 18:47 pregabalin AdvReac Intermediate Hallucinati Verified 08/27/17 18:47 ons [facility] Family History Family History Father ALS (amyotrophic lateral sclerosis) Sister No problems noted. Mother COPD (chronic obstructive pulmonary disease) Social History Social History Substance History: No History of Abuse Second Hand Smoke Exposure: Yes Smoking Status: Never smoker How Often Do You Have a Drink Containing Alcohol: Never Recent Travel in [facility] within the Last 8 Weeks: No Recent Out of Country Travel within the Last 8 Weeks: No Course Initial Documented Vital Signs Temperature 98.0 F 08/27/17 18:41 Pulse Rate 102 H 08/27/17 18:41 Respiratory Rate 16 08/27/17 18:41 Blood Pressure 139/92 H 08/27/17 18:41 Pulse Oximetry 94 L 08/27/17 18:41 Last Documented Vital Signs Temperature 98.0 F 08/29/17 00:00 Pulse Rate 91 H 08/29/17 00:00 Respiratory Rate 18 08/29/17 00:00 Blood Pressure 134/61 08/29/17 00:00 Pulse Oximetry 92 L 08/29/17 00:00 Medical Decision Making MDM Narrative Medical decision making narrative: Patient placed on monitor IV access obtained specimens collected and sent for resulting CT brain noncontrast ordered At 930 patient requesting pain medication does not have pain medication listed as [address] brain noncontrast reveals no acute abnormality but artifact is present. At 10:45 PM urine specimen being collected by cath and rectal exam performed by ak normal sphincter tone brown stool formed Hemoccult negative Differential Diagnosis Differential Diagnosis: Generalized weakness, tremor, Parkinson's, MS, ALS, UTI , sepsis, electrolyte disturbance, TIA, CVA Medical Records Medical records reviewed: Yes I reviewed the patient's medical records. Lab Data Lab results reviewed: Yes I reviewed the patient's lab results. Result diagrams: 08/27/17 20:00 08/27/17 20:00 Lab Results 08/27/17 08/27/17 08/27/17 Range/Units 20:00 20:00 20:00 WBC 9.1 (4.0-11.0) th/mm3 RBC 4.47 (4.00-5.30) mil/mm3 Hgb 13.5 (11.6-15.3) gm/dL Hct 40.5 (35.0-46.0) % MCV 90.7 (80.0-100.0) fL MCH 30.3 (27.0-34.0) pg MCHC 33.4 (32.0-36.0) % RDW 14.8 (11.6-17.2) % Plt Count 260 (150-450) th/mm3 MPV 8.5 (7.0-11.0) fL Prelim Diff (Auto) Slide review pending Neut % (Auto) 38.4 (16.0-70.0) % Lymph % (Auto) 53.1 H (9.0-44.0) % [place] % (Auto) 5.6 (0.0-8.0) % Eos % (Auto) 2.3 (0.0-4.0) % Baso % (Auto) 0.6 (0.0-2.0) % Neut # (Auto) 3.5 (1.8-7.7) th/mm3 Lymph # (Auto) 4.8 (1.0-4.8) th/mm3 [place] # (Auto) 0.5 (0.0-0.9) th/mm3 Eos # (Auto) 0.2 (0.0-0.4) th/mm3 Baso # (Auto) 0.1 (0.0-0.2) th/mm3 WBC Differential . Diff Scan Auto diff confirmed Differential Comment . Platelet Estimate Normal (Normal) Platelet Morphology Normal (Normal) RBC Morphology Normal (Normal) PT 9.7 L (9.8-11.6) sec INR 1.0 Ratio Sodium 141 (136-145) meq/L Potassium 4.4 (3.5-5.1) meq/L Chloride 108 H (98-107) meq/L Carbon Dioxide 19.7 L (21.0-32.0) meq/L Anion Gap 13 (5-15) meq/L BUN 37 H (7-18) mg/dL Creatinine 0.71 (0.50-1.00) mg/dL Estimated GFR 80 L (>89) mL/min Random Glucose 84 (74-106) mg/dL Calcium 8.8 (8.5-10.1) mg/dL Magnesium 2.2 (1.5-2.5) mg/dL Iron (50-170) mcg/dL Ferritin (8-252) ng/mL Total Bilirubin 0.2 (0.2-1.0) mg/dL AST 20 (15-37) U/L ALT 15 (10-53) U/L Alkaline Phosphatase 146 H (45-117) U/L Total Creatine Kinase 133 (26-192) U/L Troponin I Less than 0.02 L (0.02-0.05) ng/mL Total Protein 7.4 (6.4-8.2) g/dL Total Protein (PEP) (6.4-8.2) gm/dL Albumin 3.3 L (3.4-5.0) g/dL Albumin (PEP) (3.50-5.00) gm/dL Albumin/Globulin Ratio (1.39-2.23) Bvzdd-6-Lxwveeett (0.11-0.29) gm/dL Evmsb-2-Ppjjznegj (0.22-1.00) gm/dL Beta Globulins (0.53-1.03) gm/dL Gamma Globulins (0.50-1.39) gm/dL Vitamin B12 (193-986) pg/mL TSH 1.100 (0.358-3.740) uIU/mL Urine Color (Yellw/Straw) Urine Clarity (Clear) Urine pH (5.0-8.5) Ur Specific [place] (1.002-1.035) Urine Protein (Neg-Trace) mg/dL Urine Glucose (UA) (Negative) mg/dL Urine Ketones (Negative) mg/dL Urine Occult Blood (Negative) Urine Nitrate (Negative) Urine Bilirubin (Negative) Urine Urobilinogen (Less than 2) mg/dL Ur Leukocyte Esterase (Negative) Urine RBC (0-3) /hpf Urine WBC (0-5) /hpf Urine Bacteria (None) /hpf Urine Mucus (Occasional) /lpf Micro UA Comment Urine Culture Comments Rheumatoid Factor Scrn (Negative) Rheumatoid Factor Titer 08/27/17 08/28/17 Range/Units 22:40 12:08 WBC (4.0-11.0) th/mm3 RBC (4.00-5.30) mil/mm3 Hgb (11.6-15.3) gm/dL Hct (35.0-46.0) % MCV (80.0-100.0) fL MCH (27.0-34.0) pg MCHC (32.0-36.0) % RDW (11.6-17.2) % Plt Count (150-450) th/mm3 MPV (7.0-11.0) fL Prelim Diff (Auto) Neut % (Auto) (16.0-70.0) % Lymph % (Auto) (9.0-44.0) % [place] % (Auto) (0.0-8.0) % Eos % (Auto) (0.0-4.0) % Baso % (Auto) (0.0-2.0) % Neut # (Auto) (1.8-7.7) th/mm3 Lymph # (Auto) (1.0-4.8) th/mm3 [place] # (Auto) (0.0-0.9) th/mm3 Eos # (Auto) (0.0-0.4) th/mm3 Baso # (Auto) (0.0-0.2) th/mm3 WBC Differential Diff Scan Differential Comment Platelet Estimate (Normal) Platelet Morphology (Normal) RBC Morphology (Normal) PT (9.8-11.6) sec INR Ratio Sodium (136-145) meq/L Potassium (3.5-5.1) meq/L Chloride (98-107) meq/L Carbon Dioxide (21.0-32.0) meq/L Anion Gap (5-15) meq/L BUN (7-18) mg/dL Creatinine (0.50-1.00) mg/dL Estimated GFR (>89) mL/min Random Glucose (74-106) mg/dL Calcium (8.5-10.1) mg/dL Magnesium (1.5-2.5) mg/dL Iron 40 L (50-170) mcg/dL Ferritin 158 (8-252) ng/mL Total Bilirubin (0.2-1.0) mg/dL AST (15-37) U/L ALT (10-53) U/L Alkaline Phosphatase (45-117) U/L Total Creatine Kinase (26-192) U/L Troponin I (0.02-0.05) ng/mL Total Protein (6.4-8.2) g/dL Total Protein (PEP) 6.9 (6.4-8.2) gm/dL Albumin (3.4-5.0) g/dL Albumin (PEP) 3.92 (3.50-5.00) gm/dL Albumin/Globulin Ratio 1.31 L (1.39-2.23) Calwk-5-Apwughdgu 0.21 (0.11-0.29) gm/dL Bkrzx-4-Hiqvoowwh 0.88 (0.22-1.00) gm/dL Beta Globulins 0.66 (0.53-1.03) gm/dL Gamma Globulins 1.24 (0.50-1.39) gm/dL Vitamin B12 503 (193-986) pg/mL TSH (0.358-3.740) uIU/mL Urine Color Yellow (Yellw/Straw) Urine Clarity Clear (Clear) Urine pH 5.0 (5.0-8.5) Ur Specific [place] 1.019 (1.002-1.035) Urine Protein Negative (Neg-Trace) mg/dL Urine Glucose (UA) Negative (Negative) mg/dL Urine Ketones Trace H (Negative) mg/dL Urine Occult Blood Small H (Negative) Urine Nitrate Positive H (Negative) Urine Bilirubin Negative (Negative) Urine Urobilinogen Less than 2 (Less than 2) mg/dL Ur Leukocyte Esterase Trace H (Negative) Urine RBC Less than 1 (0-3) /hpf Urine WBC 6 H (0-5) /hpf Urine Bacteria Rare H (None) /hpf Urine Mucus Few H (Occasional) /lpf Micro UA Comment Cath-culture ind Urine Culture Comments Cath-cult indicated Rheumatoid Factor Scrn Negative (Negative) Rheumatoid Factor Titer Not Reportable Imaging Data Radiologist's impression: ITS Impressions Chest X-Ray 08/27/17 19:35 CONCLUSION: Elevated right hemidiaphragm. Mild basilar atelectasis. No significant effusion. Head CT 08/27/17 19:35 CONCLUSION: 1. Exam degraded by motion artifact. No large mass, hemorrhage or shift identified. Cervical Spine MRI 08/28/17 00:00 CONCLUSION: 1. Left paracentral bulging/protrusion at C5-6. 2. Broad-based bulging at multiple levels including C3-4, C4-5 and C6-7. 3. Bilateral facet arthritis at multiple levels. 4. Very mild anterior subluxation of C4 over C5 by approximately 2 mm. 5. Primary bony degenerative changes throughout the cervical spine with disc space narrowing at C5-6 and C6-7. Lumbar Spine MRI 08/28/17 00:00 CONCLUSION: 1. Status post lumbar spinal surgery with fusion from L3 through S1. 2. There is curvature of the lumbar spine to the left. 3. Right focal paracentral disc protrusion at L2-3. 4. There is broad-based bulging at T12-L1. 5. Probable synovial cyst on the left side at L1-2 associated with the left facet joint. Thoracic Spine MRI 08/28/17 00:00 CONCLUSION: 1. There are some mild degenerative changes throughout the thoracic spine with curvature of the thoracic spine to the right. 2. Small focal central bulging at T3-T4 and T8-T9 3. Diffuse broad-based bulging with bilateral facet arthritis at T12-L1. ECG Data Interpretation: Normal sinus rhythm right bundle branch block with history of right bundle branch block no acute ST elevation age-indeterminate QS inferiorly significant artifact at baseline Discharge Plan Discharge Disposition Patient Disposition: 30 Still Patient Discharge Condition Condition: Stable Physicians Team ED Provider: Guerline Ott Primary Care Provider: Perry Shoemaker Attending Provider: India Long Other Providers: Denis Alvarado ; Meliton Mccoy Status ED Status: Left Department Discharge Information Discharge Date/Time: 08/28/17 01:50
[2017-08-27 21:28] LABS: Albumin 3.3 g/dL (3.4-5.0); Anion Gap 13 meq/L (5-15); Aspartate Aminotransferase 20 U/L (15-37); Blood Urea Nitrogen 37 mg/dL (7-18); Calcium 8.8 mg/dL (8.5-10.1); Carbon Dioxide 19.7 meq/L (21.0-32.0); Chloride 108 meq/L (98-107); Glomerular Filtration Rate 80 mL/min (>89); Glucose,Random 84 mg/dL (74-106); Magnesium 2.2 mg/dL (1.5-2.5); Potassium 4.4 meq/L (3.5-5.1); Sodium 141 meq/L (136-145)
[2017-08-27 21:40] LABS: Alanine Aminotransferase 15 U/L (10-53); Alkaline Phosphatase 146 U/L (45-117); Creatine Kinase 133 U/L (26-192); Total Protein 7.4 g/dL (6.4-8.2)
[2017-08-27 21:41] LABS: Platelet Morphology Normal (Normal)
[2017-08-27 21:42] LABS: Platelet Estimate Normal (Normal); RBC Morphology Normal (Normal)
[2017-08-27] MEDS ORDERED: oxyCODONE/Acetaminophen 10/325 Tablet PO ONE (21:45)
[2017-08-27] MEDS ORDERED: Sodium Chlor 0.9% Inj 500 ML IV.SIG ONE (22:22)
[2017-08-27 23:33] LABS: Bacteria,Urine Rare /hpf; Bilirubin,Urine Negative (Negative); Clarity,Urine Clear (Clear); Color,Urine Yellow (Yellw/Straw); Glucose,Urine (UA) Negative (Negative); Leukocyte Esterase,Urine Trace (Negative); Mucus,Urine Few /lpf (Occasional); Nitrite,Urine Positive (Negative); Specific Gravity,Urine 1.019 (1.002-1.035)
[2017-08-28] MEDS ORDERED: Bisacodyl 10 MG Supp RECTAL PRN (00:24)
[2017-08-28] MEDS: Sod Chloride 0.9% Inj 1,000 ML IV.CONT SCH ×3 (02:21→22:06)
--- NOTE | 2017-08-28 05:13 | P.HPIM ---
History of Present Illness Primary Care Physician: Perry Shoemaker DO Chief Complaint: Weakness History of Present Illness: 77-year-old female with a history of hypertension, serotonin syndrome in 2017, restless leg syndrome, suspected parkinsonism being treated with Sinemet who presents with 3 month history of progressively worsening weakness, bilateral upper and lower extremity tremors. With inability to get out of bed for the past week. She denies any fevers, chills, chest pain, shortness of breath. Denies any dysuria. She reports chronic pain all over. She denies any recent medication changes. She does note father with history of ALS. - Inpatient Certification If this patient has been admitted as an Inpatient: I certify that the inpatient services were ordered in accordance with Medicare regulations governing the order. This includes certification that hospital inpatient services are reasonable and necessary and in the case of services not specified as inpatient-only under 42 CFR 419.22(n), that they are appropriately provided as inpatient services in accordance to with the 2-midnight benchmark under 43 CFR 412.3(e) Review of Systems All other systems reviewed negative except as stated in HPI PMFSH - History History Provided By: Patient - Medical History Medical History: Medical History (Last Updated 08/28/17 @ 05:08 by Douglas Katz MD) Chronic GERD Chronic pain History of hysterectomy Hyperlipidemia Hypertension Restless leg syndrome Serotonin syndrome - Surgical History Surgical History: Surgical History (Last Updated 08/28/17 @ 05:08 by Douglas Katz MD) H/O knee surgery H/O spinal fusion History of appendectomy - Family History Family History: Family History (Last Updated 08/28/17 @ 05:09 by Douglas Katz MD) Father ALS (amyotrophic lateral sclerosis) Sister No problems noted. Mother COPD (chronic obstructive pulmonary disease) - Tobacco History Second Hand Smoke Exposure: Yes Smoking Status: Never smoker - Alcohol History How Often Do You Have a Drink Containing Alcohol: Never - Substance Use History Substance History: No History of Abuse - Travel History Recent Travel in the [place] Within the Last 8 Weeks: No Recent Travel Out of the Country Within the Last 8 Weeks: No Medications and Allergies Active Medications: Active Medications Al Hydroxide/Mg Hydroxide (Milk Of Magnesia Liq) 30 ml PO Q12H PRN PRN Reason: Mild Constipation Bisacodyl (Dulcolax Supp) 10 mg RECTAL DAILY PRN PRN Reason: SEVERE CONSITIPATION Ceftriaxone Sodium 1,000 mg/ (Sodium Chloride) 100 mls @ 200 mls/hr IV.SIG Q24H ROX Sodium Chloride (Ns Inj) 1,000 mls @ 100 mls/hr IV.CONT .Q10H [facility] Last Admin: 08/28/17 02:21 Dose: 100 mls/hr Lactulose (Lactulose Liq) 30 ml PO DAILY PRN PRN Reason: SEVERE CONSITIPATION Oxycodone/Acetaminophen (Percocet 10/325 Mg) 1 tab PO Q6H PRN PRN Reason: PAIN SCALE 1-10 Pantoprazole Sodium (Protonix) 40 mg PO DAILY [facility] [place] Sennosides (Senokot) 17.2 mg PO Q12H PRN PRN Reason: Moderate Constipation Sodium Chloride (Ns Flush) 2 ml IV.FLUSH PRN PRN PRN Reason: FLUSH AFTER USING IV ACCESS Verapamil HCl (Isoptin) 80 mg PO BID [facility] [place] Allergies Allergy/AdvReac Type Severity Reaction Status Date / Time amlodipine Allergy Intermediate Rash Verified 08/27/17 18:48 atorvastatin Allergy Intermediate Rash Verified 08/27/17 18:48 penicillin G Allergy Intermediate Rash Verified 08/27/17 18:48 pravastatin Allergy Intermediate Rash Verified 08/27/17 18:48 simvastatin Allergy Intermediate Rash Verified 08/27/17 18:48 fluoxetine Allergy Unknown Twitching Verified 08/27/17 18:47 pregabalin AdvReac Intermediate Hallucinati Verified 08/27/17 18:47 ons Home Medications Medication Instructions Recorded Confirmed Type carbidopa-levodopa 08/27/17 History oxycodone-acetaminophen [Percocet] 1 tab PO Q6H PRN 08/27/17 08/27/17 History primidone 50 mg PO TID 08/27/17 08/27/17 History verapamil 80 mg PO BID 08/27/17 08/27/17 History Exam Vital signs: Vital Signs 08/27/17 18:41 Temperature 98.0 F Pulse Rate 102 H Respiratory Rate 16 Blood Pressure 139/92 H Pulse Oximetry 94 L Intake & Output 08/27/17 08/27/17 08/28/17 06:59 18:59 06:59 Weight 90.718 kg Narrative: GENERAL: Patient lying in bed. Appears comfortable. Choreiform/dyskinetic movements. She is alert and oriented 3. SKIN: Warm and dry. HEAD: Atraumatic. Normocephalic. EYES: Pupils equal and round. No scleral icterus. No injection or drainage. ENT: No nasal bleeding or discharge. Mucous membranes pink and moist. NECK: Trachea midline. No JVD. CARDIOVASCULAR: Regular rate and rhythm. RESPIRATORY: No accessory muscle use. Clear to auscultation. Breath sounds equal bilaterally. GASTROINTESTINAL: Abdomen soft, non-tender, nondistended. Hepatic and splenic margins not palpable. MUSCULOSKELETAL: Extremities without clubbing, cyanosis, or edema. Patient with marketed thenar muscle wasting, forearm muscle wasting. NEUROLOGICAL: Awake and alert. No obvious cranial nerve deficits. Bilateral dyskinesia, choreiform movements. 4 out of 5 strength in bilateral arms, bilateral legs. PSYCHIATRIC: Appropriate mood and affect; insight and judgment normal. Results - Labs CBC & Chem 7: 08/27/17 20:00 08/27/17 20:00 Labs: Short CBC 08/27/17 Range/Units 20:00 WBC 9.1 (4.0-11.0) th/mm3 Hgb 13.5 (11.6-15.3) gm/dL Hct 40.5 (35.0-46.0) % Plt Count 260 (150-450) th/mm3 BMP 08/27/17 20:00 Sodium 141 Potassium 4.4 Chloride 108 H Carbon Dioxide 19.7 L BUN 37 H Creatinine 0.71 Calcium 8.8 Cardiac Enzymes 08/27/17 Range/Units 20:00 Total Creatine Kinase 133 (26-192) U/L Troponin I Less than 0.02 L (0.02-0.05) ng/mL Liver Function 08/27/17 Range/Units 20:00 Total Bilirubin 0.2 (0.2-1.0) mg/dL AST 20 (15-37) U/L ALT 15 (10-53) U/L Alkaline Phosphatase 146 H (45-117) U/L Albumin 3.3 L (3.4-5.0) g/dL Urine 08/27/17 Range/Units 22:40 Urine Color Yellow (Yellw/Straw) Urine Clarity Clear (Clear) Urine pH 5.0 (5.0-8.5) Ur Specific [place] 1.019 (1.002-1.035) Urine Protein Negative (Neg-Trace) mg/dL Urine Glucose (UA) Negative (Negative) mg/dL - Imaging Impressions Chest X-Ray 08/27/17 19:35 CONCLUSION: Elevated right hemidiaphragm. Mild basilar atelectasis. No significant effusion. Head CT 08/27/17 19:35 CONCLUSION: 1. Exam degraded by motion artifact. No large mass, hemorrhage or shift identified. Caprini VTE Risk Assessment Caprini VTE Risk Assessment: Moderate/High Risk (score >= 2) Caprini Risk Assessment Model: Point Value = 1 Point Value = 2 Point Value = 3 Point Value = 5 Age 41-60 Minor surgery BMI > 25 kg/m2 Swollen legs Varicose veins or History of unexplained or recurrent spontaneous Oral contraceptives or hormone replacement Sepsis (< 1 month) Serious lung disease, including pneumonia (< 1 month) Abnormal pulmonary function Acute myocardial infarction Congestive heart failure (< 1 month) History of inflammatory bowel disease Medical patient at bed rest Age 61-74 Arthroscopic surgery Major open surgery (> 45 min) Laparoscopic surgery (> 45 min) Malignancy Confined to bed (> 72 hours) Immobilizing plaster cast Central venous access Age >= 75 History of VTE Family history of VTE Factor V Leiden Prothrombin [id number] Lupus anticoagulant Anticardiolipin antibodies Elevated serum homocysteine Heparin-induced thrombocytopenia Other congenital or acquired thrombophilia Stroke (< 1 month) Elective arthroplasty Hip, pelvis, or leg fracture Acute spinal cord injury (< 1 month) Prophylaxis Regimen: Total Risk Factor Score Risk Level Prophylaxis Regimen 0-1 Low Early ambulation 2 Moderate Order ONE of the following: *Sequential Compression Device (SCD) *Heparin 5000 units SQ BID 3-4 Higher Order ONE of the following medications: *Heparin 5000 units SQ TID *Enoxaparin/Lovenox 40 mg SQ daily (WT < 150 kg, CrCl > 30 mL/min) *Enoxaparin/Lovenox 30 mg SQ daily (WT < 150 kg, CrCl > 10-29 mL/min) *Enoxaparin/Lovenox 30 mg SQ BID (WT < 150 kg, CrCl > 30 mL/min) AND/OR *Sequential Compression Device (SCD) 5 or more Highest Order ONE of the following medications: *Heparin 5000 units SQ TID (Preferred with Epidurals) *Enoxaparin/Lovenox 40 mg SQ daily (WT < 150 kg, CrCl > 30 mL/min) *Enoxaparin/Lovenox 30 mg SQ daily (WT < 150 kg, CrCl > 10-29 mL/min) *Enoxaparin/Lovenox 30 mg SQ BID (WT < 150 kg, CrCl > 30 mL/min) AND *Sequential Compression Device (SCD) Assessment and Plan - Plan //Acute on chronic weakness //Suspected Parkinson's //Possible ALS given family history of father with ALS //History of serotonin syndrome = With subjective weight loss. = Possibly secondary to leukemia versus ALS, vs parkinsons. = Patient had been on Sinemet as outpatient, however no formal diagnosis of Parkinson's. -We will hold off on Parkinson's and restless leg medications pending neuro eval = Consult neurology. //Patient reported occult the clearing secretions which is been going on for several weeks., however reports no difficulty swallowing. Patient would like to start on diet. Denies any difficulty swallowing. Will order diet and monitor. Speech eval //Lymphocytosis = 53% lymphocytes on CBC. Consult hematology. Slide review is pending. //Dehydration. Likely secondary to poor p.o. intake. IV fluids. //GERD. Chronic. Continue PPI //Suspected UTI. Urinalysis with positive nitrate, however only 6 white blood cells. Will start on ceftriaxone. Follow-up culture. Discussed Condition With: Patient, nurse, ED physician. H&P: Quality - VTE Deep Vein Thrombosis/Pulmonary Embolism Present on Admission: No
[2017-08-28] MEDS: oxyCODONE/Acetaminophen 10/325 Tablet PO PRN ×3 (05:32→18:42)
--- NOTE | 2017-08-28 09:17 | MB ---
cc: Meliton Godinez MD DATE: 08/28/2017 HISTORY OF PRESENT ILLNESS: A 77-year-old right-handed woman with a history of hypertension, hypercholesterolemia, right bundle branch block, UTI, peptic ulcer disease, restless leg syndrome, who has not walked normally in 10 years she tells me. She has been bedbound and in a wheelchair for about 2 years. She fell in a long term, but after being in there for falling and hurting her knees and broke her ankle, has not walked since that time. She was seen by Dr. Abarca in 09/2016. He notes she was chronically bedbound due to low back pain. She uses a wheelchair. She had involuntary movements of all of her extremities after she took her 's Prozac. She ran out of pain medication. MRI was negative. She got Ativan. She was on Percocet, tizanidine and Requip. She thought maybe she had serotonin syndrome as she had some myoclonus, mildly elevated CPK, tachycardia. The patient sees Dr. Patel for chronic pain. She had been put on Sinemet by her regular doctor, Dr. Shoemaker for the restless legs. She thinks it helps a little bit, mainly the Requip, however, helps. She says that she was having some kind of body spasms when she came in now. REVIEW OF SYSTEMS: She denies any diabetes, [place], stent, angioplasty, A. Fib, Coumadin, renal, hepatic, pulmonary disease, thyroid disease, lupus, cancer, seizure or stroke. SOCIAL HISTORY: Not a smoker or a drinker. Lives with her and daughter. FAMILY HISTORY: Negative for cancer or seizure. Positive stroke in her daughter. Positive for ALS in her father. MEDICATIONS: 1. Verapamil 80 b.i.d. 2. Senokot. 3. Protonix. 4. Percocet. 5. Lactulose. 6. Ceftriaxone, but not sure if those are her home medications or not. HOME MEDICATIONS: 1. Sinemet, I believe it is 1 pill three times a day. 2. Primidone 50 three times a day. 3. Verapamil. 4. Percocet. 5. Requip. She says she takes 2 mg twice a day. ALLERGIES: AMLODIPINE, ATORVASTATIN, PENICILLIN, PRAVASTATIN, SIMVASTATIN, FLUOXETINE AND PREGABALIN DUE TO HALLUCINATIONS. PHYSICAL EXAMINATION: VITAL SIGNS: Afebrile, 80-102, 139/92, O2 saturations normal. NECK: There were no carotid bruits. HEART: Regular rhythm. I did not detect a murmur. She is quite obese. NEUROLOGIC: Pupils are equal. Visual hunter are full. Extraocular movements intact without nystagmus. Face is symmetric with normal sensation. Tongue was midline. There is no drift. She has a poor an old right shoulder problem, so its hard to test the deltoid, but her triceps and biceps were normal on the right hand, as were finger extensors, finger flexors, FDI, APB. Left upper extremity, normal deltoid, triceps, biceps finger extensors, FDI, APB, but her finger flexors appeared to be a little bit weak on the left hand I would say, probably about 4/5. Iliopsoas bilaterally was normal as was her best testing hamstring and quadriceps, tibialis anterior, foot inversion, eversion, toe extensors and flexors. DTRs are absent throughout upper and lower extremities bilaterally. There is no ankle clonus. Tone was normal throughout. She has constant restless movements of her legs. Toes were downgoing bilaterally. Pinprick was mildly diminished in the distal foot bilaterally, but otherwise intact. She is not ataxic on [id number] or [id number]-[id number]. Speech is fluent. She is not aphasic. LABORATORY DATA: CBC is normal. Coags normal. Basic metabolic profile essentially unremarkable. LFTs were normal TSH, albumin CPK all normal. UA had 6 white cells, positive nitrite. Nothing major was checked from her prior admission. CPK at that time was 241 only. Troponin was negative then. IMAGING: Head CT here was read as normal. She had a brain MRI in 09/2016 that was negative. IMPRESSION: I think overall she looks fairly well neurologically in the bed. It is unclear totally why she has not been standing. She certainly has restless legs and I will give her back her Requip here which seems to help. We will check an MRI of her cervical, thoracic and lumbosacral spine with her inability to walk, but I do not see anything from just her bed exam that would preclude her from being able to stand, although she evidently has not stood in several years. We will have PT see if they can stand her and if possible check a standing blood pressure on her. I will check some other routine labs. We will also check her for myasthenia gravis; however, I think that is unlikely. We will check an iron and ferritin level with her restless leg history. MD DAMION Plaza/ODETTE , 08:49 AM , 09:17 AM
--- NOTE | 2017-08-28 11:57 | P.PNIM ---
Subjective Interval history: Patient still states that she is more weak than normal. She would like to restart back her Sinemet medication. She was taking that as prescribed by her primary care physician and did seem to help with her weakness and spasms. Physical Exam Vital signs: Vital Signs 08/27/17 18:41 08/28/17 04:00 08/28/17 06:00 Temperature 98.0 F 98.0 F Pulse Rate 102 H 90 91 H Respiratory Rate 16 19 Blood Pressure 139/92 H 123/53 L Pulse Oximetry 94 L 100 08/28/17 08:00 Temperature 98.1 F Pulse Rate 80 Respiratory Rate 18 Blood Pressure 143/81 H Pulse Oximetry 94 L Intake & Output 08/27/17 08/28/17 08/28/17 18:59 06:59 18:59 Weight 90.718 kg 116.8 kg Other: # Voids 1 Weight On Admission 90.71 kg Narrative: GENERAL: This is a well-nourished, obese, well-developed patient, in no apparent distress. CARDIOVASCULAR: Regular rate and rhythm without murmurs, gallops, or rubs. RESPIRATORY: Clear to auscultation. Breath sounds equal bilaterally. No wheezes , rales, or rhonchi. GASTROINTESTINAL: Abdomen soft, non-tender, nondistended. Normal active bowel sounds MUSCULOSKELETAL: Extremities without clubbing, cyanosis, or edema. NEURO: Alert & Oriented x4 to person, place, time, situation. Moves upper extremity with involuntary tremors Results - Labs CBC & Chem 7: 08/27/17 20:00 08/27/17 20:00 Laboratory Results - last 24 hr 08/27/17 08/27/17 08/27/17 20:00 20:00 20:00 WBC 9.1 RBC 4.47 Hgb 13.5 Hct 40.5 MCV 90.7 MCH 30.3 MCHC 33.4 RDW 14.8 Plt Count 260 MPV 8.5 Prelim Diff (Auto) Slide review pending Neut % (Auto) 38.4 Lymph % (Auto) 53.1 H [place] % (Auto) 5.6 Eos % (Auto) 2.3 Baso % (Auto) 0.6 Neut # (Auto) 3.5 Lymph # (Auto) 4.8 [place] # (Auto) 0.5 Eos # (Auto) 0.2 Baso # (Auto) 0.1 WBC Differential . Diff Scan Auto diff confirmed Differential Comment . Platelet Estimate Normal Platelet Morphology Normal RBC Morphology Normal PT 9.7 L INR 1.0 Sodium 141 Potassium 4.4 Chloride 108 H Carbon Dioxide 19.7 L Anion Gap 13 BUN 37 H Creatinine 0.71 Estimated GFR 80 L Random Glucose 84 Calcium 8.8 Magnesium 2.2 Total Bilirubin 0.2 AST 20 ALT 15 Alkaline Phosphatase 146 H Total Creatine Kinase 133 Troponin I Less than 0.02 L Total Protein 7.4 Albumin 3.3 L TSH 1.100 Urine Color Urine Clarity Urine pH Ur Specific [place] Urine Protein Urine Glucose (UA) Urine Ketones Urine Occult Blood Urine Nitrate Urine Bilirubin Urine Urobilinogen Ur Leukocyte Esterase Urine RBC Urine WBC Urine Bacteria Urine Mucus Micro UA Comment Urine Culture Comments 08/27/17 22:40 WBC RBC Hgb Hct MCV MCH MCHC RDW Plt Count MPV Prelim Diff (Auto) Neut % (Auto) Lymph % (Auto) [place] % (Auto) Eos % (Auto) Baso % (Auto) Neut # (Auto) Lymph # (Auto) [place] # (Auto) Eos # (Auto) Baso # (Auto) WBC Differential Diff Scan Differential Comment Platelet Estimate Platelet Morphology RBC Morphology PT INR Sodium Potassium Chloride Carbon Dioxide Anion Gap BUN Creatinine Estimated GFR Random Glucose Calcium Magnesium Total Bilirubin AST ALT Alkaline Phosphatase Total Creatine Kinase Troponin I Total Protein Albumin TSH Urine Color Yellow Urine Clarity Clear Urine pH 5.0 Ur Specific [place] 1.019 Urine Protein Negative Urine Glucose (UA) Negative Urine Ketones Trace H Urine Occult Blood Small H Urine Nitrate Positive H Urine Bilirubin Negative Urine Urobilinogen Less than 2 Ur Leukocyte Esterase Trace H Urine RBC Less than 1 Urine WBC 6 H Urine Bacteria Rare H Urine Mucus Few H Micro UA Comment Cath-culture ind Urine Culture Comments Cath-cult indicated - Imaging Impressions Chest X-Ray 08/27/17 19:35 CONCLUSION: Elevated right hemidiaphragm. Mild basilar atelectasis. No significant effusion. Head CT 08/27/17 19:35 CONCLUSION: 1. Exam degraded by motion artifact. No large mass, hemorrhage or shift identified. Assessment and Plan - Plan 1. Acute on chronic weakness Suspected Parkinson's Ruled out ALS given family history of father with ALS per neurology Dr. Godinez Consult physical therapy and out out of bed. = Patient had been on Sinemet as outpatient, however no formal diagnosis of Parkinson's. -We will hold off on Parkinson's medication to restart by neurology. Dr. Godinez has restarted Requip restless leg medications pending neuro eval Appreciate neurology's recommendations. He is recommending MRI of the lumbar thoracic and C-spine unsure if patient is able to obtain that due to history of metal rods. May need to obtain CT scans. Patient reported occult the clearing secretions which is been going on for several weeks., however reports no difficulty swallowing. Patient would like to start on diet. Denies any difficulty swallowing. Will order diet and monitor. Speech eval Lymphocytosis = 53% lymphocytes on CBC. Consult hematology currently pending. Slide review is pending. Dehydration. Likely secondary to poor p.o. intake. IV fluids. GERD. Chronic. Continue PPI Suspected UTI. Urinalysis with positive nitrate, however only 6 white blood cells. Will start on ceftriaxone. Follow-up final urine cultures culture.
[2017-08-28 13:25] LABS: Ferritin 158 ng/mL (8-252); Iron 40 mcg/dL (50-170); Vitamin B12 503 pg/mL (193-986)
[2017-08-28] MEDS: Primidone 50 MG Tablet PO SCH ×2 (14:27→18:42)
[2017-08-28] MEDS ORDERED: Gadodiamide PF Inj 287 MG/ML 5 ML Syringe (for RAD MRI) IVCONTRAST ONE (16:45)
--- NOTE | 2017-08-28 17:10 | MR ---
EXAM DATE: 08/28/2017 4:59 PM EDT AGE/SEX: 77 years / Female INDICATIONS: Weakness. Tremors. CLINICAL DATA: This is the patient's initial encounter. Patient reports that signs and symptoms have been present for 2 days and indicates a pain score of 0/10. MEDICAL/SURGICAL HISTORY: Hypertension. Gastroesophageal reflux disease. Appendectomy. Tonsil lectomy. Hysterectomy. Lumbar fusion. Left knee and ankle surgery. COMPARISON: No prior exams available for comparison. TECHNIQUE: Multiplanar, multisequence MRI examination of the cervical spine was performed without an d with 23 ml Omniscan (gadodiamide) contrast as a single exam dose. FINDINGS: Vertebrae: Normal vertebral body height. Homogeneous marrow signal. There are degenerative changes throughout the cervical spine. There is some disc degeneration with disc space narrowing especially a t C5-6 and C6-7. Alignment: Very mild anterior subluxation of C4 over C5 by approximately 2 mm. Cord: Normal configuration and signal. Post Fossa: The cerebellar tonsils are normal in position. Post Contrast: No abnormal areas of enhancement are seen. C2-C3: The thecal sac has a normal configuration. There is no evidence of disc herniation or spinal canal stenosis. The neural foramina are patent bilaterally. C3-C4: Broad-based bulging. There is mild narrowing of the left neural foramina. The right neural fo ramina is patent. There is bilateral facet arthritis. C4-C5: Mild broad-based bulging. The neural foramina are patent bilaterally. There is bilateral face t arthritis. C5-C6: Left paracentral bulging/protrusion. The neural foramina are patent bilaterally. C6-C7: Mild broad-based bulging. The neural foramina are patent bilaterally. C7-T1: No epidural impressions seen. CONCLUSION: 1. Left paracentral bulging/protrusion at C5-6. 2. Broad-based bulging at multiple levels including C3-4, C4-5 and C6-7. 3. Bilateral facet arthritis at multiple levels. 4. Very mild anterior subluxation of C4 over C5 by approximately 2 mm. 5. Primary bony degenerative changes throughout the cervical spine with disc space narrowing at C5-6 and C6-7. Electronically signed by: Ismael Ruelas MD 08/28/2017 5:09 PM EDT
--- NOTE | 2017-08-28 17:14 | MR ---
EXAM DATE: 08/28/2017 5:01 PM EDT AGE/SEX: 77 years / Female INDICATIONS: Weakness. Tremors. CLINICAL DATA: This is the patient's initial encounter. Patient reports that signs and symptoms have been present for 3 days and indicates a pain score of 0/10. MEDICAL/SURGICAL HISTORY: Hypertension. Gastroesophageal reflux disease. Appendectomy. Hyster ectomy. Tonsillectomy. Lumbar fusion. Left knee and ankle surgery. COMPARISON: No prior exams available for comparison. TECHNIQUE: Multiplanar, multisequence MRI of the thoracic spine was performed without and with 23 ml Omniscan (gadodiamide) contrast as a single exam dose. FINDINGS: Vertebrae: Normal vertebral body height. Homogeneous marrow signal. No compression fracture injurie s are demonstrated. There are some mild degenerative changes present. There is curvature of the thora cic spine to the right. Alignment: No evidence of subluxation. Cord: Normal position and configuration. Post Contrast: No abnormal areas of enhancement are seen in the cord, dural or paraspinal regions. T1-T2: The thecal sac has a normal diameter. No evidence of disc bulge or protrusion. T2-T3: The thecal sac has a normal diameter. No evidence of disc bulge or protrusion. T3-T4: Small focal central bulging. The neural foramina are patent. T4-T5: The thecal sac has a normal diameter. No evidence of disc bulge or protrusion. T5-T6: The thecal sac has a normal diameter. No evidence of disc bulge or protrusion. T6-T7: The thecal sac has a normal diameter. No evidence of disc bulge or protrusion. T7-T8: The thecal sac has a normal diameter. No evidence of disc bulge or protrusion. T8-T9: Small focal central bulging. The neural foramina are patent. T9-T10: The thecal sac has a normal diameter. No evidence of disc bulge or protrusion. T10-T11: The thecal sac has a normal diameter. No evidence of disc bulge or protrusion. T11-T12: The thecal sac has a normal diameter. No evidence of disc bulge or protrusion. T12-L1: Diffuse broad-based bulging. Bilateral facet arthritis. Mild to moderate spinal canal stenos is. CONCLUSION: 1. There are some mild degenerative changes throughout the thoracic spine with curvature of the thor acic spine to the right. 2. Small focal central bulging at T3-T4 and T8-T9 3. Diffuse broad-based bulging with bilateral facet arthritis at T12-L1. Electronically signed by: Ismael Ruelas MD 08/28/2017 5:13 PM EDT
--- NOTE | 2017-08-28 17:30 | MR ---
EXAM DATE: 08/28/2017 5:04 PM EDT AGE/SEX: 77 years / Female INDICATIONS: Weakness. Tremors. CLINICAL DATA: This is the patient's initial encounter. Patient reports that signs and symptoms have been present for 3 days and indicates a pain score of 4/10. MEDICAL/SURGICAL HISTORY: Hypertension. Gastroesophageal reflux disease. Appendectomy. Hyster ectomy. Tonsillectomy. Lumbar fusion. Left knee and ankle surgery. COMPARISON: No prior exams available for comparison. TECHNIQUE: Multiplanar, multisequence MRI examination of the lumbar spine was performed without and with 23 ml Omniscan (gadodiamide) contrast as a single exam dose. FINDINGS: The most caudal-appearing lumbar vertebra is numbered as L5. Vertebra: There is evidence of previous lumbar spinal surgery with fusion from L3 through S1. There is curvature of the lumbar spine to the left. There are degenerative changes involving the lumbar spi ne. There is disc degeneration with some disc space narrowing at T12-L1 with some discogenic edema. Conus: Normal level and configuration. Post Contrast: No abnormal areas of contrast enhancement are seen. T12-L1: There is some broad-based bulging. The neural foramina. Patent bilaterally. L1-L2: The thecal sac has a normal diameter. No evidence of disc bulge or protrusion. The neural foramina are patent bilaterally. There is a probable synovial cyst associated with the left facet yvonne nt. There is bilateral facet arthritis. L2-L3: Right focal paracentral disc protrusion. This is causing some narrowing of the right neural foramina. The left neural foramina is patent. There is a single left-sided pedicular screw in the bod y of L3. L3-L4: Bilateral pedicular screws at L4. No significant extra dural defects are seen on the canal. The neural foramina appear patent. There is some limited visualization due to metallic artifact. L4-L5: The thecal sac has a normal diameter. No evidence of disc bulge or protrusion. The neural foramina are patent bilaterally. L5-S1: The thecal sac has a normal diameter. No evidence of disc bulge or protrusion. The neural foramina are patent bilaterally. There are bilateral pedicular screws at S1. CONCLUSION: 1. Status post lumbar spinal surgery with fusion from L3 through S1. 2. There is curvature of the lumbar spine to the left. 3. Right focal paracentral disc protrusion at L2-3. 4. There is broad-based bulging at T12-L1. 5. Probable synovial cyst on the left side at L1-2 associated with the left facet joint. Electronically signed by: Ismael Ruelas MD 08/28/2017 5:29 PM EDT
--- NOTE | 2017-08-28 18:38 | ECG ---
Date Performed: 08/27/2017 Time Performed: 21:36:15 PTAGE: 77 years EKG: Sinus rhythm RIGHT BUNDLE BRANCH BLOCK POSSIBLE SEPTAL MYOCARDIAL INFARCTION LEFT ANTERIOR FACICULAR BLOCK ABNORM AL ECG PREVIOUS TRACING : 04/10/2017 19.53 since prior tracing, there has been no serial change DOCTOR: Adeline Pavon Interpretating Date/Time 08/28/2017 18:37:02
[2017-08-29] MEDS: oxyCODONE/Acetaminophen 10/325 Tablet PO PRN ×3 (05:29→18:16)
[2017-08-29] MEDS: Sod Chloride 0.9% Inj 1,000 ML IV.CONT SCH (05:30)
--- NOTE | 2017-08-29 07:06 | P.PNNEU ---
Subjective Subjective Comments: slept on and off Active Medications: Active Medications Generic Name Dose Route Start Last Admin Trade Name Freq PRN Reason Stop Dose Admin Al Hydroxide/Mg Hydroxide 30 ml 08/28/17 00:24 Milk Of Magnesia Liq PO Q12H PRN Mild Constipation Bisacodyl 10 mg 08/28/17 00:24 Dulcolax Supp RECTAL DAILY PRN SEVERE CONSITIPATION Ceftriaxone Sodium 1,000 mg/ 100 mls @ 200 mls/hr 08/29/17 01:00 08/29/17 06: 58 Sodium Chloride IV.SIG Infused Q24H ROX Infusion Sodium Chloride 1,000 mls @ 100 mls/hr 08/28/17 00:30 08/29/17 05:30 Ns Inj IV.CONT 100 mls/hr .Q10H ROX Administration Lactulose 30 ml 08/28/17 00:24 Lactulose Liq PO DAILY PRN SEVERE CONSITIPATION Oxycodone/Acetaminophen 1 tab 08/28/17 03:56 08/29/17 05:29 Percocet 10/325 Mg PO 1 tab Q6H PRN Administration PAIN SCALE 1-10 Pantoprazole Sodium 40 mg 08/28/17 09:00 08/28/17 08:00 Protonix PO 40 mg DAILY ROX Administration Primidone 50 mg 08/28/17 13:00 08/28/17 18:42 Mysoline PO 50 mg TID ROX Administration Ropinirole HCl 1 mg 08/28/17 09:00 08/29/17 02:53 Requip PO 1 mg Q8H ROX Administration Sennosides 17.2 mg 08/28/17 00:24 Senokot PO Q12H PRN Moderate Constipation Sodium Chloride 2 ml 08/27/17 19:35 Ns Flush IV.FLUSH PRN PRN FLUSH AFTER USING IV ACCESS Verapamil HCl 80 mg 08/28/17 09:00 08/28/17 22:07 Isoptin PO 80 mg BID ROX Administration Allergies/Adverse Reactions: Allergies Allergy/AdvReac Type Severity Reaction Status Date / Time amlodipine Allergy Intermediate Rash Verified 08/27/17 18:48 atorvastatin Allergy Intermediate Rash Verified 08/27/17 18:48 penicillin G Allergy Intermediate Rash Verified 08/27/17 18:48 pravastatin Allergy Intermediate Rash Verified 08/27/17 18:48 simvastatin Allergy Intermediate Rash Verified 08/27/17 18:48 fluoxetine Allergy Unknown Twitching Verified 08/27/17 18:47 pregabalin AdvReac Intermediate Hallucinati Verified 08/27/17 18:47 ons Physical Exam Vital signs: Vital Signs 08/28/17 08:00 08/28/17 12:00 08/28/17 16:00 Temperature 98.1 F 98.2 F 98.0 F Pulse Rate 80 90 93 H Respiratory Rate 18 18 18 Blood Pressure 143/81 H 145/68 H 131/58 L Pulse Oximetry 94 L 96 96 08/28/17 20:00 08/29/17 00:00 Temperature 97.9 F 98.0 F Pulse Rate 93 H 91 H Respiratory Rate 18 18 Blood Pressure 130/73 134/61 Pulse Oximetry 92 L 92 L Intake & Output 08/28/17 08/29/17 08/29/17 18:59 06:59 18:59 Intake Total 1960 / 1960 2100 / 2100 Output Total 1200 / 1200 Balance 760 / 760 2100 / 2100 Intake: IV 1000 / 1000 2100 / 2100 NS Inj 1,000 ML @ 100 mls/hr IV 1000 / 1000 2000 / 2000 .CONT .Q10H ROX Rx#:[id number] Rocephin Inj 1,000 MG In NS Inj 100 / 100 100 ML @ 200 mls/hr IV.SIG Q24H ROX Rx#:[id number] Oral 960 / 960 Output: Urine 1200 / 1200 Other: # Voids 3 # Bowel Movements 1 Narrative: some less movement rls ble awake alert Objective Laboratory Results - last 24 hr 08/28/17 12:08 Iron 40 L Ferritin 158 Total Protein (PEP) 6.9 Albumin (PEP) 3.92 Albumin/Globulin Ratio 1.31 L Abfqe-4-Djxvatbkm 0.21 Fzwwc-4-Dinkctmgf 0.88 Beta Globulins 0.66 Gamma Globulins 1.24 Vitamin B12 503 Rheumatoid Factor Scrn Negative Rheumatoid Factor Titer Not Reportable Microbiology 08/27/17 22:40 Urine Culture - Preliminary Catheterized Urine Immature growth - reincubate Review/Management - Review/Management Plan: imp She is a little bit less restless. I reviewed her MRI of the cervical and thoracic spine nodes are negative. The MRI of the lumbar spine shows a lot of instrumentation and since early doses. She complains of a lot of pains all over her body. We will try some Cymbalta and I talk with physical therapy they will try to get 3 or 4 people to stand her. I think her limiting factor is her low back pain for her standing. Check her standing blood pressures when they do standard. We will check a sed rate. And if that looks okay she could be discharged but it would be great if we could stand her up and they could continue that at physical therapy wherever she goes
[2017-08-29 07:47] LABS: Baso % (Auto) 0.5 % (0.0-2.0); Eos # (Auto) 0.2 th/mm3 (0.0-0.4); Hematocrit 36.6 % (35.0-46.0); Hemoglobin 12.3 gm/dL (11.6-15.3); Lymph % (Auto) 49.5 % (9.0-44.0); Mean Corpuscular HGB Conc 33.7 % (32.0-36.0); Mean Corpuscular Hemoglobin 30.4 pg (27.0-34.0); Mean Corpuscular Volume 90.3 fL (80.0-100.0); Mean Platelet Volume 8.2 fL (7.0-11.0); Mono # (Auto) 0.5 th/mm3 (0.0-0.9); Neut # (Auto) 3.4 th/mm3 (1.8-7.7); Platelet Count 239 th/mm3 (150-450); Red Blood Count 4.05 mil/mm3 (4.00-5.30); White Blood Count 8.1 th/mm3 (4.0-11.0)
[2017-08-29 08:16] LABS: Alanine Aminotransferase 27 U/L (10-53); Anion Gap 8 meq/L (5-15); Aspartate Aminotransferase 14 U/L (15-37); Blood Urea Nitrogen 23 mg/dL (7-18); Calcium 9.1 mg/dL (8.5-10.1); Carbon Dioxide 27.1 meq/L (21.0-32.0); Chloride 104 meq/L (98-107); Glomerular Filtration Rate Greater Than 89 mL/min (>89); Glucose,Random 89 mg/dL (74-106); Potassium 4.4 meq/L (3.5-5.1); Sodium 139 meq/L (136-145)
[2017-08-29 08:17] LABS: Alkaline Phosphatase 123 U/L (45-117)
[2017-08-29] MEDS: Primidone 50 MG Tablet PO SCH ×3 (08:38→18:13)
[2017-08-29] MEDS ORDERED: Promethazine 25 MG Supp RECTAL PRN (10:32)
[2017-08-29 11:14] LABS: Anti-Nuclear Antibody Screen Pos (Neg)
--- NOTE | 2017-08-29 14:13 | P.PNIM ---
Subjective Interval history: Patient states there has not been any change in her strength. No worse but no improved. She will discuss with family today to see if she should go to rehab. Physical Exam Vital signs: Vital Signs 08/28/17 16:00 08/28/17 20:00 08/29/17 00:00 Temperature 98.0 F 97.9 F 98.0 F Pulse Rate 93 H 93 H 91 H Respiratory Rate 18 18 18 Blood Pressure 131/58 L 130/73 134/61 Pulse Oximetry 96 92 L 92 L 08/29/17 04:00 08/29/17 08:00 08/29/17 12:00 Temperature 98.0 F 97.8 F 97.7 F Pulse Rate 100 H 97 H 87 Respiratory Rate 20 18 18 Blood Pressure 189/91 H 156/83 H 124/61 Pulse Oximetry 94 L 95 92 L Intake & Output 08/28/17 08/29/17 08/29/17 18:59 06:59 18:59 Intake Total 1960 / 1960 2100 / 2100 Output Total 1200 / 1200 Balance 760 / 760 2100 / 2100 Intake: IV 1000 / 1000 2100 / 2100 NS Inj 1,000 ML @ 100 mls/hr IV 1000 / 1000 2000 / 2000 .CONT .Q10H ROX Rx#:[id number] Rocephin Inj 1,000 MG In NS Inj 100 / 100 100 ML @ 200 mls/hr IV.SIG Q24H ROX Rx#:[id number] Oral 960 / 960 Output: Urine 1200 / 1200 Other: # Voids 3 Date of Last Bowel Movement 08/29/17 # Bowel Movements 1 Narrative: GENERAL: This is a well-nourished, well-developed patient, in no apparent distress. CARDIOVASCULAR: Regular rate and rhythm without murmurs, gallops, or rubs. RESPIRATORY: Clear to auscultation. Breath sounds equal bilaterally. No wheezes , rales, or rhonchi. MUSCULOSKELETAL: Extremities without clubbing, cyanosis, trace to 1+ NEURO: Alert & Oriented x4 to person, place, time, situation. Generalized weakness Results - Labs CBC & Chem 7: 08/29/17 06:31 08/29/17 06:31 Laboratory Results - last 24 hr 08/28/17 08/28/17 08/28/17 12:08 12:08 12:08 WBC RBC Hgb Hct MCV MCH MCHC RDW Plt Count MPV Neut % (Auto) Lymph % (Auto) [place] % (Auto) Eos % (Auto) Baso % (Auto) Neut # (Auto) Lymph # (Auto) [place] # (Auto) Eos # (Auto) Baso # (Auto) WBC Differential Differential Comment ESR Sodium Potassium Chloride Carbon Dioxide Anion Gap BUN Creatinine Estimated GFR Random Glucose Calcium Total Bilirubin AST ALT Alkaline Phosphatase Total Protein Albumin Albumin (PEP) 3.92 Albumin/Globulin Ratio 1.31 L Mtrax-8-Kvydiiszs 0.21 Clyvk-1-Dahrdynny 0.88 Beta Globulins 0.66 Gamma Globulins 1.24 PEP Pathologist Comment ALYSSIA Screen Pos H RPR Titer 1:1 H RPR Reactive H T.pallidum Ab (FTA-ABS) Cancelled 08/29/17 08/29/17 08/29/17 06:31 06:31 06:31 WBC 8.1 RBC 4.05 Hgb 12.3 Hct 36.6 MCV 90.3 MCH 30.4 MCHC 33.7 RDW 15.0 Plt Count 239 MPV 8.2 Neut % (Auto) 42.0 Lymph % (Auto) 49.5 H [place] % (Auto) 6.0 Eos % (Auto) 2.0 Baso % (Auto) 0.5 Neut # (Auto) 3.4 Lymph # (Auto) 4.0 [place] # (Auto) 0.5 Eos # (Auto) 0.2 Baso # (Auto) 0.0 WBC Differential . Differential Comment Auto diff final ESR 30 Sodium 139 Potassium 4.4 Chloride 104 Carbon Dioxide 27.1 Anion Gap 8 BUN 23 H Creatinine 0.55 Estimated GFR Greater than 89 Random Glucose 89 Calcium 9.1 Total Bilirubin 0.4 AST 14 L ALT 27 Alkaline Phosphatase 123 H Total Protein 7.0 Albumin 3.0 L Albumin (PEP) Albumin/Globulin Ratio Ijwkg-5-Srsbkcpmp Mkock-2-Knmyxbkae Beta Globulins Gamma Globulins PEP Pathologist Comment ALYSSIA Screen RPR Titer RPR T.pallidum Ab (FTA-ABS) Microbiology 08/27/17 22:40 Catheterized Urine Urine Culture - Preliminary Immature growth - reincubate - Imaging Impressions Cervical Spine MRI 08/28/17 00:00 CONCLUSION: 1. Left paracentral bulging/protrusion at C5-6. 2. Broad-based bulging at multiple levels including C3-4, C4-5 and C6-7. 3. Bilateral facet arthritis at multiple levels. 4. Very mild anterior subluxation of C4 over C5 by approximately 2 mm. 5. Primary bony degenerative changes throughout the cervical spine with disc space narrowing at C5-6 and C6-7. Lumbar Spine MRI 08/28/17 00:00 CONCLUSION: 1. Status post lumbar spinal surgery with fusion from L3 through S1. 2. There is curvature of the lumbar spine to the left. 3. Right focal paracentral disc protrusion at L2-3. 4. There is broad-based bulging at T12-L1. 5. Probable synovial cyst on the left side at L1-2 associated with the left facet joint. Thoracic Spine MRI 08/28/17 00:00 CONCLUSION: 1. There are some mild degenerative changes throughout the thoracic spine with curvature of the thoracic spine to the right. 2. Small focal central bulging at T3-T4 and T8-T9 3. Diffuse broad-based bulging with bilateral facet arthritis at T12-L1. Assessment and Plan - Plan 1. Acute on chronic weakness Suspected Parkinson's Ruled out ALS given family history of father with ALS per neurology Dr. Godinez Consult physical therapy and out out of bed. Patient had been on Sinemet as outpatient, however no formal diagnosis of Parkinson's. - Dr. Godinez has restarted Requip restless leg medications Requip started Appreciate neurology's recommendations. Dr. Stokes has reviewed the MRI of the lumbar thoracic and C-spine. At this time, he is recommending Cymbalta. I will restart home Sinemet and encouraged continue physical therapy Dehydration. Patient now is taking in good oral intake will discontinue IV fluids GERD. Chronic. Continue PPI Abnormal urinalysis with no growth and urine cultures, well discontinue IV Rocephin Discharge Planning: patient will discuss with family today whether she will be going to rehab versus going home with home health care. Likely can be discharged in next 24- 48 hours.
[2017-08-30] MEDS: oxyCODONE/Acetaminophen 10/325 Tablet PO PRN ×3 (01:18→20:29)
--- NOTE | 2017-08-30 08:37 | P.PN ---
Subjective Interval history: Follow-up generalized weakness. States she is getting better agrees with rehabilitation. Patient has not been ambulatory for 2 years. No history of syphilis Physical Exam Vital signs: Vital Signs 08/29/17 12:00 08/29/17 16:00 08/29/17 20:00 Temperature 97.7 F 98.1 F 97.7 F Pulse Rate 87 95 H 100 H Respiratory Rate 18 18 20 Blood Pressure 124/61 134/62 127/82 Pulse Oximetry 92 L 94 L 92 L 08/30/17 00:00 08/30/17 04:00 Temperature 98.0 F 97.6 F Pulse Rate 92 H 86 Respiratory Rate 18 18 Blood Pressure 140/70 125/59 L Pulse Oximetry 94 L 92 L Intake & Output 08/29/17 08/30/17 08/30/17 18:59 06:59 18:59 Intake Total 1480 / 1480 Balance 1480 / 1480 Intake: IV 520 / 520 NS Inj 1,000 ML @ 100 mls/hr IV 520 / 520 .CONT .Q10H ROX Rx#:[id number] Oral 960 / 960 Other: # Voids 4 3 Date of Last Bowel Movement 08/29/17 # Bowel Movements 1 Narrative: GENERAL: This is a well-nourished, well-developed patient, in no apparent distress. CARDIOVASCULAR: Regular rate and rhythm without murmurs, gallops, or rubs. RESPIRATORY: Clear to auscultation. Breath sounds equal bilaterally. No wheezes , rales, or rhonchi. MUSCULOSKELETAL: Extremities without clubbing, cyanosis, trace to 1+ NEURO: Alert & Oriented x4 to person, place, time, situation. Generalized weakness Results - Labs CBC & Chem 7: 08/29/17 06:31 08/29/17 06:31 Laboratory Results - last 24 hr 08/28/17 08/28/17 08/28/17 12:08 12:08 12:08 ESR PEP Pathologist Comment ALYSSIA Screen Pos H RPR Titer 1:1 H RPR Reactive H T.pallidum Ab (FTA-ABS) Cancelled 08/29/17 06:31 ESR 30 PEP Pathologist Comment ALYSSIA Screen RPR Titer RPR T.pallidum Ab (FTA-ABS) - Imaging 08/27/17 22:40 Catheterized Urine Urine Culture - Preliminary Immature growth - reincubate mpressions Chest X-Ray 08/27/17 19:35 CONCLUSION: Elevated right hemidiaphragm. Mild basilar atelectasis. No significant effusion. Head CT 08/27/17 19:35 CONCLUSION: 1. Exam degraded by motion artifact. No large mass, hemorrhage or shift identified. Cervical Spine MRI 08/28/17 00:00 CONCLUSION: 1. Left paracentral bulging/protrusion at C5-6. 2. Broad-based bulging at multiple levels including C3-4, C4-5 and C6-7. 3. Bilateral facet arthritis at multiple levels. 4. Very mild anterior subluxation of C4 over C5 by approximately 2 mm. 5. Primary bony degenerative changes throughout the cervical spine with disc space narrowing at C5-6 and C6-7. Lumbar Spine MRI 08/28/17 00:00 CONCLUSION: 1. Status post lumbar spinal surgery with fusion from L3 through S1. 2. There is curvature of the lumbar spine to the left. 3. Right focal paracentral disc protrusion at L2-3. 4. There is broad-based bulging at T12-L1. 5. Probable synovial cyst on the left side at L1-2 associated with the left facet joint. Thoracic Spine MRI 08/28/17 00:00 CONCLUSION: 1. There are some mild degenerative changes throughout the thoracic spine with curvature of the thoracic spine to the right. 2. Small focal central bulging at T3-T4 and T8-T9 3. Diffuse broad-based bulging with bilateral facet arthritis at T12-L1. - Procedures none Assessment and Plan - Assessment (1) Generalized weakness Code(s): R53.1 - Weakness Status: Acute - Plan 1. Acute on chronic weakness Suspected Parkinson's Ruled out ALS given family history of father with ALS per neurology Dr. Godinez Consult physical therapy and out out of bed. Patient had been on Sinemet as outpatient, however no formal diagnosis of Parkinson's. - Dr. Godinez has restarted Requip restless leg medications Requip started Appreciate neurology's recommendations. Reviewed the MRI of the lumbar thoracic and C-spine. At this time, he is recommending Cymbalta. I will restart home Sinemet and encouraged continue physical therapy 2. RPR + 1:1 FTA pending no history of syphilis 3. Lymphocytosis. Heme/consulted labs ordered 4. dehydration. Patient now is taking in good oral intake will discontinue IV fluids 5. GERD. Chronic. Continue PPI 6. Abnormal urinalysis with no growth and urine cultures, we'll discontinue IV Rocephin Discharge Planning: Discharge to rehab when arranged
[2017-08-30] MEDS: Heparin - SQ 10,000 UNITS/ML Vial SQ SCH ×2 (09:30→20:29)
[2017-08-30] MEDS: Primidone 50 MG Tablet PO SCH ×3 (10:47→20:36)
[2017-08-30 11:47] LABS: Immunoglobulin A 670 mg/dL (90-497); Immunoglobulin G 765 mg/dL (650-1610); Immunoglobulin M 153 mg/dL (42-255)
[2017-08-31] MEDS: oxyCODONE/Acetaminophen 10/325 Tablet PO PRN ×4 (02:53→22:09)
[2017-08-31] MEDS: Heparin - SQ 10,000 UNITS/ML Vial SQ SCH ×2 (07:50→21:43)
[2017-08-31] MEDS: Primidone 50 MG Tablet PO SCH ×3 (07:50→17:42)
--- NOTE | 2017-08-31 09:01 | P.PN ---
Subjective Interval history: f/U UTI. Cx E coli. States she is feeling better today. Physical Exam Vital signs: Vital Signs 08/30/17 12:00 08/30/17 16:00 08/30/17 20:00 Temperature 98.4 F 97.8 F 97.9 F Pulse Rate 86 87 99 H Respiratory Rate 16 18 20 Blood Pressure 117/58 L 140/65 117/77 Pulse Oximetry 92 L 92 L 93 L 08/30/17 21:30 08/31/17 00:00 08/31/17 08:00 Temperature 97.6 F 97.9 F Pulse Rate 97 H 90 Respiratory Rate 18 20 16 Blood Pressure 136/66 150/69 H Pulse Oximetry 93 L 93 L Intake & Output 08/30/17 08/31/17 08/31/17 18:59 06:59 18:59 Intake Total 620 / 620 360 / 360 Output Total 3 / 3 Balance 617 / 617 360 / 360 Weight 115.3 kg Intake: Oral 620 / 620 360 / 360 Output: Urine 3 / 3 Other: # Voids 4 Date of Last Bowel Movement 08/29/17 # Bowel Movements 0 Narrative: GENERAL: This is a well-nourished, well-developed patient, in no apparent distress. CARDIOVASCULAR: Regular rate and rhythm without murmurs, gallops, or rubs. RESPIRATORY: Clear to auscultation. Breath sounds equal bilaterally. No wheezes , rales, or rhonchi. MUSCULOSKELETAL: Extremities without clubbing, cyanosis, trace to 1+ edema NEURO: Alert & Oriented x4 to person, place, time, situation. Generalized weakness Results - Labs CBC & Chem 7: 08/29/17 06:31 08/29/17 06:31 Laboratory Results - last 24 hr 08/27/17 08/28/17 08/28/17 22:40 12:08 12:08 ESR Lactate Dehydrogenase Thiamine 141 Vitamin B6 3.0 Urine Color Yellow Urine Clarity Clear Urine pH 5.0 Ur Specific [place] 1.019 Urine Protein Negative Urine Glucose (UA) Negative Urine Ketones Trace H Urine Occult Blood Small H Urine Nitrate Positive H Urine Bilirubin Negative Urine Urobilinogen Less than 2 Ur Leukocyte Esterase Trace H Urine RBC Less than 1 Urine WBC 6 H Urine Bacteria Rare H Urine Mucus Few H Micro UA Comment Cath-culture ind Urine Culture Comments Cath-cult indicated IgG IgA IgM T.pallidum Ab (FTA-ABS) Cancelled Non-reactive 08/30/17 08/30/17 08/30/17 09:55 09:55 09:55 ESR 45 H Lactate Dehydrogenase 198 Thiamine Vitamin B6 Urine Color Urine Clarity Urine pH Ur Specific [place] Urine Protein Urine Glucose (UA) Urine Ketones Urine Occult Blood Urine Nitrate Urine Bilirubin Urine Urobilinogen Ur Leukocyte Esterase Urine RBC Urine WBC Urine Bacteria Urine Mucus Micro UA Comment Urine Culture Comments IgG 765 IgA 670 H IgM 153 T.pallidum Ab (FTA-ABS) Microbiology 08/27/17 22:40 Catheterized Urine Urine Culture - Final Escherichia coli - Procedures none Assessment and Plan - Assessment (1) Generalized weakness Code(s): R53.1 - Weakness Status: Acute - Plan 1. Acute on chronic weakness. Stable Suspected Parkinson's Ruled out ALS given family history of father with ALS per neurology Dr. Godinez Consult physical therapy and out out of bed. Patient had been on Sinemet as outpatient, however no formal diagnosis of Parkinson's. - Dr. Godinez has restarted Requip restless leg medications Requip started Appreciate neurology's recommendations. Reviewed the MRI of the lumbar thoracic and C-spine. At this time, he is recommending Cymbalta. I will restart home Sinemet and encouraged continue physical therapy 2. RPR + 1:1 FTA NR 3. Lymphocytosis. Heme/consulted labs ordered 4. dehydration. Patient now is taking in good oral intake will discontinue IV fluids 5. GERD. Chronic. Continue PPI 6. E coli UTI. Bactrim Ds for 3 days. Likely contributing to main complaint Discharge Planning: Discharge to rehab when arranged
[2017-08-31] MEDS ORDERED: diphenhydrAMINE 2%/Zinc Cream 30 GM Tube TOPICAL PRN (21:21)
--- NOTE | 2017-09-01 08:01 | P.PNNEU ---
Subjective Subjective Comments: stood for few seconds with PT Active Medications: Active Medications Generic Name Dose Route Start Last Admin Trade Name Freq PRN Reason Stop Dose Admin Al Hydroxide/Mg Hydroxide 30 ml 08/28/17 00:24 Milk Of Magnesia Liq PO Q12H PRN Mild Constipation Bisacodyl 10 mg 08/28/17 00:24 Dulcolax Supp RECTAL DAILY PRN SEVERE CONSITIPATION Carbidopa/Levodopa 1 tab 08/29/17 18:00 08/31/17 17:42 Sinemet 25/100 Mg PO 1 tab TID FOR[facility], [facility]1983 Administration Duloxetine HCl 30 mg 08/29/17 09:00 08/31/17 10:40 Cymbalta PO Not Given DAILY FOR[facility], [facility]1983 Heparin Sodium (Porcine) 5,000 units 08/30/17 09:00 08/31/17 21:43 Heparin Inj SQ 5,000 units Q12HR [facility]1983 Administration Lactulose 30 ml 08/28/17 00:24 Lactulose Liq PO DAILY PRN SEVERE CONSITIPATION Ondansetron HCl 4 mg 08/29/17 10:32 08/29/17 12:05 Zofran Odt PO 4 mg Q6H PRN Administration NAUSEA OR VOMITING Oxycodone/Acetaminophen 1 tab 08/28/17 03:56 08/31/17 22:09 Percocet 10/325 Mg PO 1 tab Q6H PRN Administration PAIN SCALE 1-10 Pantoprazole Sodium 40 mg 08/28/17 09:00 08/31/17 07:50 Protonix PO 40 mg DAILY [facility]1983 Administration Primidone 50 mg 08/28/17 13:00 08/31/17 17:42 Mysoline PO 50 mg TID [facility]1983 Administration Promethazine HCl 25 mg 08/29/17 10:32 Phenergan PO Q6H PRN NAUSEA OR VOMITING Promethazine HCl 25 mg 08/29/17 10:32 Phenergan Supp RECTAL Q6H PRN NAUSEA OR VOMITING Ropinirole HCl 1 mg 08/28/17 09:00 09/01/17 01:41 Requip PO 1 mg Q8H [facility]1983 Administration Sennosides 17.2 mg 08/28/17 00:24 Senokot PO Q12H PRN Moderate Constipation Sodium Chloride 2 ml 08/27/17 19:35 Ns Flush IV.FLUSH PRN PRN FLUSH AFTER USING IV ACCESS Trimethoprim/Sulfamethoxazole 1 tab 08/31/17 09:00 08/31/17 21:42 Bactrim Ds PO 09/03/17 08:59 1 tab Q12HR ROX Administration Verapamil HCl 80 mg 08/28/17 09:00 08/31/17 21:43 Isoptin PO 80 mg BID ROX Administration Zinc Acetate/Diphenhydramine 1 applicatio 08/31/17 21:21 08/31/17 21:42 Benadryl 2% Cream TOPICAL 1 applicatio Q8H PRN Administration Pruritis Allergies/Adverse Reactions: Allergies Allergy/AdvReac Type Severity Reaction Status Date / Time amlodipine Allergy Intermediate Rash Verified 08/27/17 18:48 atorvastatin Allergy Intermediate Rash Verified 08/27/17 18:48 penicillin G Allergy Intermediate Rash Verified 08/27/17 18:48 pravastatin Allergy Intermediate Rash Verified 08/27/17 18:48 simvastatin Allergy Intermediate Rash Verified 08/27/17 18:48 fluoxetine Allergy Unknown Twitching Verified 08/27/17 18:47 pregabalin AdvReac Intermediate Hallucinati Verified 08/27/17 18:47 ons Physical Exam Vital signs: Vital Signs 08/31/17 08:00 08/31/17 12:00 08/31/17 16:00 Temperature 97.9 F 97.7 F 97.9 F Pulse Rate 90 95 H 90 Respiratory Rate 16 16 16 Blood Pressure 150/69 H 118/59 L 140/65 Pulse Oximetry 93 L 95 93 L 08/31/17 20:00 09/01/17 00:00 Temperature 97.9 F 97.8 F Pulse Rate 95 H 88 Respiratory Rate 22 20 Blood Pressure 157/60 H 119/58 L Pulse Oximetry 96 95 Intake & Output 08/31/17 09/01/17 09/01/17 18:59 06:59 18:59 Intake Total 900 / 900 480 / 480 Balance 900 / 900 480 / 480 Weight 115.2 kg Intake: Oral 900 / 900 480 / 480 Other: # Voids 2 3 Date of Last Bowel Movement 08/29/17 # Bowel Movements 0 Narrative: no change awake alert legs restless Review/Management - Review/Management Plan: imp She is a little bit less restless. I reviewed her MRI of the cervical and thoracic spine nodes are negative. The MRI of the lumbar spine shows a lot of instrumentation and since early doses. She complains of a lot of pains all over her body. We will try some Cymbalta and I talk with physical therapy they will try to get 3 or 4 people to stand her. I think her limiting factor is her low back pain for her standing. Check her standing blood pressures when they do standard. We will check a sed rate. And if that looks okay she could be discharged but it would be great if we could stand her up and they could continue that at physical therapy wherever she goes 09/01/17 she states she does not want to try and stand anymore just slide board transfer spep abn check ipep upep fta neg other labs ok could dc to rehab but ipep needs fu on cymbalta inc to 30 bid and inc requip 2 tid
[2017-09-01] MEDS: Heparin - SQ 10,000 UNITS/ML Vial SQ SCH ×2 (09:15→21:32)
[2017-09-01] MEDS: Primidone 50 MG Tablet PO SCH ×3 (09:16→17:19)
[2017-09-01] MEDS: oxyCODONE/Acetaminophen 10/325 Tablet PO PRN ×3 (11:13→23:17)
--- NOTE | 2017-09-01 12:09 | P.PN ---
Subjective Interval history: Follow-up weakness. She has no new complaints seen with family Physical Exam Vital signs: Vital Signs 08/31/17 16:00 08/31/17 20:00 09/01/17 00:00 Temperature 97.9 F 97.9 F 97.8 F Pulse Rate 90 95 H 88 Respiratory Rate 16 22 20 Blood Pressure 140/65 157/60 H 119/58 L Pulse Oximetry 93 L 96 95 Intake & Output 08/31/17 09/01/17 09/01/17 18:59 06:59 18:59 Intake Total 900 / 900 480 / 480 Balance 900 / 900 480 / 480 Weight 115.2 kg Intake: Oral 900 / 900 480 / 480 Other: # Voids 2 3 Date of Last Bowel Movement 08/29/17 08/29/17 # Bowel Movements 0 Narrative: GENERAL: This is a well-nourished, well-developed patient, in no apparent distress. CARDIOVASCULAR: Regular rate and rhythm without murmurs, gallops, or rubs. RESPIRATORY: Clear to auscultation. Breath sounds equal bilaterally. No wheezes , rales, or rhonchi. MUSCULOSKELETAL: Extremities without clubbing, cyanosis, trace to 1+ edema NEURO: Alert & Oriented x4 to person, place, time, situation. Generalized weakness Results - Labs CBC & Chem 7: 08/29/17 06:31 08/29/17 06:31 - Procedures none Assessment and Plan - Assessment (1) Generalized weakness Code(s): R53.1 - Weakness Status: Acute - Plan 1. Acute on chronic weakness, patient nonambulatory for almost 2 years. Stable Suspected Parkinson's Ruled out ALS given family history of father with ALS per neurology Dr. Godinez Consult physical therapy and out of bed. Patient had been on Sinemet as outpatient, however no formal diagnosis of Parkinson's. - Dr. Godinez has restarted Requip restless leg medications Requip has been increase Appreciate neurology's recommendations. Reviewed the MRI of the lumbar thoracic and C-spine. At this time, he is recommending Cymbalta. I will restart home Sinemet and encouraged continue physical therapy 2. RPR + 1:1 FTA NR 3. Lymphocytosis. Heme/consulted labs ordered 4. dehydration. Patient now is taking in good oral intake will discontinue IV fluids 5. GERD. Chronic. Continue PPI 6. E coli UTI. Bactrim Ds for 3 days. Likely contributing to main complaint Discharge Planning: Discharge to rehab when arranged
[2017-09-01 12:20] LABS: Kappa Lambda Ratio 3.91 (1.57-3.93)
[2017-09-01 14:24] LABS: Anti-Nuclear Antibody Pattern Speckled
--- NOTE | 2017-09-01 17:23 | P.DS ---
Date of admission: 08/28/17 00:24 Primary care physician: Perry Shoemaker DO Brief History from admission: 77-year-old female with a history of hypertension, serotonin syndrome in 2017, restless leg syndrome, suspected parkinsonism being treated with Sinemet who presents with 3 month history of progressively worsening weakness, bilateral upper and lower extremity tremors. With inability to get out of bed for the past week. She denies any fevers, chills, chest pain, shortness of breath. Denies any dysuria. She reports chronic pain all over. She denies any recent medication changes. She does note father with history of ALS. DS: Diagnosis - Discharge Diagnosis (1) Generalized weakness Status: Acute DS: Medications - Discharge Medications Prescriptions: oxycodone-acetaminophen 1 tab PO Q6H PRN #12 tab PRN Reason: Acute Pain pantoprazole 40 mg PO DAILY #30 tab ropinirole [Requip] 2 mg PO Q8HR #90 tab DS: Summary Hospital Course: 1. Acute on chronic weakness, patient nonambulatory for almost 2 years. Stable Suspected Parkinson's Ruled out ALS given family history of father with ALS per neurology Dr. Godinez Consult physical therapy and out of bed. Patient had been on Sinemet as outpatient, however no formal diagnosis of Parkinson's. - Dr. Godinez has restarted Requip restless leg medications Requip has been increase Appreciate neurology's recommendations. Reviewed the MRI of the lumbar thoracic and C-spine. At this time, he is recommending Cymbalta. I will restart home Sinemet and encouraged continue physical therapy 2. RPR + 1:1 FTA NR 3. Lymphocytosis. 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 Patient declines inpatient bone marrow biopsy. Outpatient follow-up with Dr. Barragan 4. dehydration. Patient now is taking in good oral intake will discontinue IV fluids 5. GERD. Chronic. Continue PPI 6. E coli UTI. Status post Rocephin and Bactrim. Likely contributing to main complaint - Time Spent with Patient Total time spent providing and/or coordinating discharge services: Greater than 30 minutes - Quality: VTE Deep Vein Thrombosis/Pulmonary Embolism Present on Admission: No Exam Vital signs: Vital Signs 08/31/17 20:00 09/01/17 00:00 09/01/17 08:00 Temperature 97.9 F 97.8 F 97.6 F Pulse Rate 95 H 88 92 H Respiratory Rate 22 20 18 Blood Pressure 157/60 H 119/58 L 140/65 Pulse Oximetry 96 95 94 L 09/01/17 12:00 09/01/17 12:52 Temperature 98.0 F Pulse Rate 89 Respiratory Rate 18 18 Blood Pressure 134/61 Pulse Oximetry 95 Intake & Output 08/31/17 09/01/17 09/01/17 18:59 06:59 18:59 Intake Total 900 / 900 480 / 480 Balance 900 / 900 480 / 480 Weight 115.2 kg Intake: Oral 900 / 900 480 / 480 Other: # Voids 2 3 Date of Last Bowel Movement 08/29/17 08/29/17 # Bowel Movements 0 Narrative: GENERAL: This is a well-nourished, well-developed patient, in no apparent distress. CARDIOVASCULAR: Regular rate and rhythm without murmurs, gallops, or rubs. RESPIRATORY: Clear to auscultation. Breath sounds equal bilaterally. No wheezes , rales, or rhonchi. GASTROINTESTINAL: Abdomen soft, non-tender, nondistended. Normal active bowel sounds MUSCULOSKELETAL: Extremities without clubbing, cyanosis but with trace leg edema. NEURO: Alert & Oriented x4 to person, place, time, situation. Moves all ext x4 with generalized weakness Results Procedures completed during hospitalization: none Labs on day of discharge: Labs from last 24 hours 09/01/17 08/28/17 11:12 12:08 IgG 795 IgA 665 H IgM 164 [place]/Lambda Ratio 3.91 VENECIA Interpretation Pending ALYSSIA Titer 1:160 H ALYSSIA Pattern Speckled H ALYSSIA Interpretation [place] Light Chain Anal 414 H Lambda Light Chain Anal 106 - Impressions ITS Impressions Chest X-Ray 08/27/17 19:35 CONCLUSION: Elevated right hemidiaphragm. Mild basilar atelectasis. No significant effusion. Head CT 08/27/17 19:35 CONCLUSION: 1. Exam degraded by motion artifact. No large mass, hemorrhage or shift identified. Cervical Spine MRI 08/28/17 00:00 CONCLUSION: 1. Left paracentral bulging/protrusion at C5-6. 2. Broad-based bulging at multiple levels including C3-4, C4-5 and C6-7. 3. Bilateral facet arthritis at multiple levels. 4. Very mild anterior subluxation of C4 over C5 by approximately 2 mm. 5. Primary bony degenerative changes throughout the cervical spine with disc space narrowing at C5-6 and C6-7. Lumbar Spine MRI 08/28/17 00:00 CONCLUSION: 1. Status post lumbar spinal surgery with fusion from L3 through S1. 2. There is curvature of the lumbar spine to the left. 3. Right focal paracentral disc protrusion at L2-3. 4. There is broad-based bulging at T12-L1. 5. Probable synovial cyst on the left side at L1-2 associated with the left facet joint. Thoracic Spine MRI 08/28/17 00:00 CONCLUSION: 1. There are some mild degenerative changes throughout the thoracic spine with curvature of the thoracic spine to the right. 2. Small focal central bulging at T3-T4 and T8-T9 3. Diffuse broad-based bulging with bilateral facet arthritis at T12-L1. Discharge Plan - Discharge Disposition Patient Disposition: 03 Discharge to SNF - Discharge Condition Condition: Stable - Discharge Order Discharge Orders: Discharge Order (Routine); Ordered 09/01/17 Ordered By: Chaparro Joya - Physicians Team Primary Care Provider: Perry Shoemaker Attending Provider: Chaparro Joya Other Providers: Meliton Godinez MD ; Parker Barragan MD
[2017-09-02] MEDS: oxyCODONE/Acetaminophen 10/325 Tablet PO PRN ×3 (09:09→21:54)
[2017-09-02] MEDS: Heparin - SQ 10,000 UNITS/ML Vial SQ SCH ×2 (09:10→21:47)
[2017-09-02] MEDS: Primidone 50 MG Tablet PO SCH ×3 (09:11→18:39)
--- NOTE | 2017-09-02 11:05 | P.PNNEU ---
Subjective Subjective Comments: No acute events reported No headache No chest pain No dyspnea Active Medications: Active Medications Generic Name Dose Route Start Last Admin Trade Name Freq PRN Reason Stop Dose Admin Al Hydroxide/Mg Hydroxide 30 ml 08/28/17 00:24 Milk Of Magnesia Liq PO Q12H PRN Mild Constipation Bisacodyl 10 mg 08/28/17 00:24 Dulcolax Supp RECTAL DAILY PRN SEVERE CONSITIPATION Carbidopa/Levodopa 1 tab 08/29/17 18:00 09/02/17 09:11 Sinemet 25/100 Mg PO 1 tab TID ROX Administration Duloxetine HCl 30 mg 09/01/17 10:30 09/02/17 09:11 Cymbalta PO Not Given BID [facility] Heparin Sodium (Porcine) 5,000 units 08/30/17 09:00 09/02/17 09:10 Heparin Inj SQ 5,000 units Q12HR ROX Administration Lactulose 30 ml 08/28/17 00:24 Lactulose Liq PO DAILY PRN SEVERE CONSITIPATION Ondansetron HCl 4 mg 08/29/17 10:32 08/29/17 12:05 Zofran Odt PO 4 mg Q6H PRN Administration NAUSEA OR VOMITING Oxycodone/Acetaminophen 1 tab 08/28/17 03:56 09/02/17 09:09 Percocet 10/325 Mg PO 1 tab Q6H PRN Administration PAIN SCALE 1-10 Pantoprazole Sodium 40 mg 08/28/17 09:00 09/02/17 09:10 Protonix PO 40 mg DAILY [facility] Administration Primidone 50 mg 08/28/17 13:00 09/02/17 09:11 Mysoline PO 50 mg TID [facility] Administration Promethazine HCl 25 mg 08/29/17 10:32 Phenergan PO Q6H PRN NAUSEA OR VOMITING Promethazine HCl 25 mg 08/29/17 10:32 Phenergan Supp RECTAL Q6H PRN NAUSEA OR VOMITING Ropinirole HCl 2 mg 09/01/17 11:00 09/02/17 02:28 Requip PO 2 mg Q8H ROX Administration Sennosides 17.2 mg 08/28/17 00:24 Senokot PO Q12H PRN Moderate Constipation Sodium Chloride 2 ml 08/27/17 19:35 Ns Flush IV.FLUSH PRN PRN FLUSH AFTER USING IV ACCESS Trimethoprim/Sulfamethoxazole 1 tab 08/31/17 09:00 09/02/17 09:10 Bactrim Ds PO 09/03/17 08:59 1 tab Q12HR ROX Administration Verapamil HCl 80 mg 08/28/17 09:00 09/02/17 09:10 Isoptin PO 80 mg BID ROX Administration Zinc Acetate/Diphenhydramine 1 applicatio 08/31/17 21:21 08/31/17 21:42 Benadryl 2% Cream TOPICAL 1 applicatio Q8H PRN Administration Pruritis Allergies/Adverse Reactions: Allergies Allergy/AdvReac Type Severity Reaction Status Date / Time amlodipine Allergy Intermediate Rash Verified 08/27/17 18:48 atorvastatin Allergy Intermediate Rash Verified 08/27/17 18:48 penicillin G Allergy Intermediate Rash Verified 08/27/17 18:48 pravastatin Allergy Intermediate Rash Verified 08/27/17 18:48 simvastatin Allergy Intermediate Rash Verified 08/27/17 18:48 fluoxetine Allergy Unknown Twitching Verified 08/27/17 18:47 pregabalin AdvReac Intermediate Hallucinati Verified 08/27/17 18:47 ons Physical Exam Vital signs: Vital Signs 09/01/17 12:00 09/01/17 12:52 09/01/17 20:00 Temperature 98.0 F 98 F Pulse Rate 89 97 H Respiratory Rate 18 18 18 Blood Pressure 134/61 124/59 L Pulse Oximetry 95 95 09/02/17 00:00 09/02/17 07:00 Temperature 97.6 F 97.4 F L Pulse Rate 87 104 H Respiratory Rate 18 24 Blood Pressure 126/61 126/61 Pulse Oximetry 95 96 Intake & Output 09/01/17 09/02/17 09/02/17 18:59 06:59 18:59 Intake Total 1200 / 1200 240 / 240 Output Total 1400 / 1400 Balance -200 / -200 240 / 240 Intake: Oral 1200 / 1200 240 / 240 Output: Urine 1400 / 1400 Other: # Voids 2 2 Date of Last Bowel Movement 08/29/17 # Bowel Movements 1 Narrative: no leg tremor on requip 2 tid Objective Laboratory Results - last 24 hr 08/28/17 08/28/17 08/30/17 12:08 12:08 09:55 IgG IgA IgM [place]/Lambda Ratio ALYSSIA Titer 1:160 H ALYSSIA Pattern Speckled H ALYSSIA Interpretation Striated Muscle Ab Ttr ND Striated Muscle Ab Negative Acetylchol Rcpt Bind Ab Less than 0.30 Immunophenotypic Anal [place] Light Chain Anal Lambda Light Chain Anal 09/01/17 11:12 IgG 795 IgA 665 H IgM 164 [place]/Lambda Ratio 3.91 ALYSSIA Titer ALYSSIA Pattern ALYSSIA Interpretation Striated Muscle Ab Ttr Striated Muscle Ab Acetylchol Rcpt Bind Ab Immunophenotypic Anal [place] Light Chain Anal 414 H Lambda Light Chain Anal 106 Review/Management - Review/Management Plan: imp She is a little bit less restless. I reviewed her MRI of the cervical and thoracic spine nodes are negative. The MRI of the lumbar spine shows a lot of instrumentation and since early doses. She complains of a lot of pains all over her body. We will try some Cymbalta and I talk with physical therapy they will try to get 3 or 4 people to stand her. I think her limiting factor is her low back pain for her standing. Check her standing blood pressures when they do standard. We will check a sed rate. And if that looks okay she could be discharged but it would be great if we could stand her up and they could continue that at physical therapy wherever she goes 09/01/17 she states she does not want to try and stand anymore just slide board transfer spep abn check ipep upep fta neg other labs ok could dc to rehab but ipep needs fu on cymbalta inc to 30 bid and inc requip 2 tid 09/02/17 rls a lot better on 2 tid requip fu ipep result ok dc by me
--- NOTE | 2017-09-02 13:39 | P.PN ---
Subjective Interval history: Follow-up weakness. Patient has no new complaints awaiting placement. Refusing Cymbalta which cause vomiting. Physical Exam Vital signs: Vital Signs 09/01/17 20:00 09/02/17 00:00 09/02/17 07:00 Temperature 98 F 97.6 F 97.4 F L Pulse Rate 97 H 87 104 H Respiratory Rate 18 18 24 Blood Pressure 124/59 L 126/61 126/61 Pulse Oximetry 95 95 96 Intake & Output 09/01/17 09/02/17 09/02/17 18:59 06:59 18:59 Intake Total 1200 / 1200 240 / 240 Output Total 1400 / 1400 Balance -200 / -200 240 / 240 Intake: Oral 1200 / 1200 240 / 240 Output: Urine 1400 / 1400 Other: # Voids 2 2 Date of Last Bowel Movement 08/29/17 # Bowel Movements 1 Narrative: GENERAL: Obese well-developed in no distress SKIN: Warm and dry. CARDIOVASCULAR: Regular rate and rhythm without murmurs, gallops, or rubs. RESPIRATORY: Breath sounds equal bilaterally. No accessory muscle use. GASTROINTESTINAL: Abdomen soft, non-tender, nondistended. MUSCULOSKELETAL: No cyanosis, or edema. Generalized weakness Results - Labs CBC & Chem 7: 08/29/17 06:31 08/29/17 06:31 Laboratory Results - last 24 hr 08/28/17 08/28/17 08/30/17 12:08 12:08 09:55 ALYSSIA Titer 1:160 H ALYSSIA Pattern Speckled H ALYSSIA Interpretation Striated Muscle Ab Ttr ND Striated Muscle Ab Negative Acetylchol Rcpt Bind Ab Less than 0.30 Immunophenotypic Anal - Procedures none Assessment and Plan - Assessment (1) Generalized weakness Code(s): R53.1 - Weakness Status: Acute - Plan 1. Acute on chronic weakness, patient nonambulatory for almost 2 years. Stable Suspected Parkinson's Ruled out ALS given family history of father with ALS per neurology Dr. Godinez Consult physical therapy and out of bed. Patient had been on Sinemet as outpatient, however no formal diagnosis of Parkinson's. - Dr. Godinez has restarted Requip restless leg medications Requip has been increased Appreciate neurology's recommendations. Reviewed the MRI of the lumbar thoracic and C-spine. At this time, he is recommending Cymbalta but patient is refusing because of vomiting. Continue Sinemet and encouraged continue physical therapy 2. RPR + 1:1 FTA NR 3. Lymphocytosis. Heme/consulted labs ordered 4. dehydration. Patient now is taking in good oral intake will discontinue IV fluids 5. GERD. Chronic. Continue PPI 6. E coli UTI. Bactrim Ds for 3 days last dose tomorrow. Likely contributing to main complaint Discharge Planning: Discharge to rehab when arranged
[2017-09-03] MEDS: oxyCODONE/Acetaminophen 10/325 Tablet PO PRN ×3 (04:08→16:48)
--- NOTE | 2017-09-03 07:32 | P.PNONC ---
Subjective Interval history: Ms. Garcia was seen and examined this morning, vital signs, labs, medications, progress notes, peripheral blood flow cytometry, serum protein electrophoresis, serum immunofixation and quantitative immunoglobulin studies were reviewed. Subjectively; patient reports she is preparing to be [facility]. She tells me she continues to have twitching of her muscles and generalized muscle weakness. She does however feel improved when compared to her initial presentation. Objective Vital Signs/Intake & Output: Vital Signs 09/02/17 12:00 09/02/17 16:00 09/02/17 20:00 Temperature 97.8 F 97.6 F 97.7 F Pulse Rate 79 82 88 Respiratory Rate 23 23 17 Blood Pressure 123/60 123/65 117/46 L Pulse Oximetry 94 L 95 96 09/03/17 00:00 Temperature 98 F Pulse Rate 93 H Respiratory Rate 17 Blood Pressure 106/51 L Pulse Oximetry 94 L Intake & Output 09/02/17 09/03/17 09/03/17 18:59 06:59 18:59 Intake Total 900 / 900 480 / 480 Balance 900 / 900 480 / 480 Weight 115.6 kg Intake: Oral 900 / 900 480 / 480 Other: # Voids 3 4 # Urine Diapers 1 Date of Last Bowel Movement 09/01/17 # Bowel Movements 0 Result Diagrams: 08/29/17 06:31 08/29/17 06:31 Laboratory Results: Laboratory Results - last 24 hr 08/28/17 09/01/17 12:08 11:12 VENECIA Interpretation Striated Muscle Ab Ttr ND Striated Muscle Ab Negative Medications: Active Medications Generic Name Dose Route Start Last Admin Trade Name Freq PRN Reason Stop Dose Admin Carbidopa/Levodopa 1 tab 08/29/17 18:00 09/02/17 18:39 Sinemet 25/100 Mg PO 1 tab TID ROX Administration Heparin Sodium (Porcine) 5,000 units 08/30/17 09:00 09/02/17 21:47 Heparin Inj SQ 5,000 units Q12HR ROX Administration Ondansetron HCl 4 mg 08/29/17 10:32 08/29/17 12:05 Zofran Odt PO 4 mg Q6H PRN Administration NAUSEA OR VOMITING Oxycodone/Acetaminophen 1 tab 08/28/17 03:56 09/03/17 04:08 Percocet 10/325 Mg PO 1 tab Q6H PRN Administration PAIN SCALE 1-10 Pantoprazole Sodium 40 mg 08/28/17 09:00 09/02/17 09:10 Protonix PO 40 mg DAILY ROX Administration Primidone 50 mg 08/28/17 13:00 09/02/17 18:39 Mysoline PO 50 mg TID ROX Administration Ropinirole HCl 2 mg 09/01/17 11:00 09/03/17 04:05 Requip PO 2 mg Q8H ROX Administration Trimethoprim/Sulfamethoxazole 1 tab 08/31/17 09:00 09/02/17 21:47 Bactrim Ds PO 09/03/17 08:59 1 tab Q12HR ROX Administration Verapamil HCl 80 mg 08/28/17 09:00 09/02/17 21:47 Isoptin PO 80 mg BID ROX Administration Zinc Acetate/Diphenhydramine 1 applicatio 08/31/17 21:21 08/31/17 21:42 Benadryl 2% Cream TOPICAL 1 applicatio Q8H PRN Administration Pruritis Objective Remarks: GENERAL: Elderly, chronically ill and frail appearing female. Laying in bed not acutely distressed.. SKIN: Warm and dry. HEAD: Normocephalic. EYES: No scleral icterus. No injection or drainage. NECK: Supple, trachea midline. No JVD or lymphadenopathy. LYMPHATIC: No adenopathy. CARDIOVASCULAR: Regular rate and rhythm without murmurs. RESPIRATORY: Breath sounds equal bilaterally. No accessory muscle use. GASTROINTESTINAL: Abdomen soft, non-tender, nondistended. EXTREMITIES: Generally weak, decreased muscle mass, no edema. MUSCULOSKELETAL: Atrophic muscles, decreased muscle mass, previously noted uncontrolled muscle twitching has essentially resolved on today's examination. NEUROLOGICAL: Awake and alert, oriented 3. Generalized muscle weakness, no obvious sensory deficits. PSYCHIATRIC: Appropriate mood and affect; insight and judgment normal. Assessment/Plan (1) IgA monoclonal gammopathy Code(s): D47.2 - Monoclonal gammopathy Status: Acute (2) Lymphocytosis Code(s): D72.820 - Lymphocytosis (symptomatic) Status: Acute (3) Atypical lymphocytosis Code(s): D72.820 - Lymphocytosis (symptomatic) Status: Acute - Plan Ms. 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 She has generalized muscle weakness and for the past 2 and half years has essentially been bedbound and has required assistance with all activities of daily living. I was initially asked to see this patient on 08/30/2017 after she was found to have elevated lymphocyte percentage in the setting of normal lymphocyte absolute count as well as normal WBC count. A workup ensued which included serum protein electrophoresis, peripheral blood flow cytometry and serum immunofixation. The results of the investigation have been interesting; she was found to have an IgA monoclonal gammopathy as well as an abnormal population of T lymphocytes and peripheral circulation as noted on peripheral blood flow cytometry. Question of a possible underlying diagnosis of T-cell LGL leukemia was raised. I did review the medical chart and my initial consultation from 08/30/2017 seems to have been removed from the official electronic health record. I have called [employer] and health information services and have created a ticket to help retrieve my initial record. At today's visit I had a long talk with Ms. Garcia about the findings identified , I have advised she undergo a bone marrow core biopsy and bone marrow aspiration. This would help workup both monoclonal gammopathy as well as possible underlying T-cell LGL. I did explain to her that both of these conditions are oftentimes low-grade hematologic disorders and warrant observation. However I explained to her that there is a possibility she may have a more aggressive underlying hematologic disorder which may warrant disease directed therapy. The patient however categorically declines any invasive workup at this time. She tells me she is mentally prepared to be transferred to a intermediate facility later today and will consider follow-up with me in the outpatient setting. Plan: 1. 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 I had preferred however she undergo an inpatient bone marrow biopsy. The patient however declines an inpatient bone marrow biopsy.
[2017-09-03] MEDS: Primidone 50 MG Tablet PO SCH ×4 (08:14→18:23)
[2017-09-03] MEDS: Heparin - SQ 10,000 UNITS/ML Vial SQ SCH (08:14)
--- NOTE | 2017-09-04 07:49 | P.PNADD ---
Addendum to Inpatient Note Reason for Addendum: Corrected Documentation (discharge date 09/03/17)
== END 2017-09-03 19:42 ==
LOC: NEPC 18:19 → N07 18:19 → NEDA 18:19 → N07 08-28 01:50
PROVIDERS: ADMIT Internal Medicine; ATTEND Internal Medicine
DX: R25.1 Tremor, unspecified; R05 Cough; G89.29 Other chronic pain; Z90.710 Acquired absence of both cervix and uterus; Z79.899 Other long term (current) drug therapy; Z87.11 Personal history of peptic ulcer disease; K21.9 Gastro-esophageal reflux disease without esophagitis; E78.5 Hyperlipidemia, unspecified; E78.00 Pure hypercholesterolemia, unspecified; R06.02 Shortness of breath; J98.11 Atelectasis; Z03.89 Encounter for observation for other suspected diseases and conditions ruled out; E86.0 Dehydration; Z74.01 Bed confinement status; M51.26 Other intervertebral disc displacement, lumbar region; I10 Essential (primary) hypertension; B96.20 Unspecified Escherichia coli [E. coli] as the cause of diseases classified elsewhere; R53.1 Weakness; I45.10 Unspecified right bundle-branch block; D72.820 Lymphocytosis (symptomatic); M50.222 Other cervical disc displacement at C5-C6 level; R94.31 Abnormal electrocardiogram [ECG] [EKG]; N39.0 Urinary tract infection, site not specified

== ENCOUNTER 2018-02-01 21:18 | Inpatient (IN) ==
--- NOTE | 2018-02-01 21:30 | ED ---
HPI General Chief complaint: Chest Pain Stated complaint: Resp Time Seen by Provider: 02/01/18 21:27 History of Present Illness HPI narrative: 77-year-old female with history of early possible Parkinson's disease presents via EMS for evaluation. For 1 week she has had a productive forceful cough with yellow sputum production. She has had increased dyspnea associate with a cough since yesterday as well as sharp upper chest pain which is worse when coughing. She received 4 baby aspirin, one nitroglycerin, 1 DuoNeb treatment 125 mg of Solu-Medrol via EMS. She is denying any fevers, chills, myalgias, abdominal pain, nausea, vomiting, lower extremity edema. She denies any personal tobacco use but does note that the family nurse that she lives with smoke heavily. Denies any history of COPD or asthma. Symptoms are moderate. Primary care physician is Dr. Shoemaker. No other complaints. Related Data Home Medications Medication Instructions Recorded Confirmed carbidopa-levodopa 25 - 100 mg PO TID 08/27/17 02/01/18 primidone 50 mg PO TID 08/27/17 02/01/18 ezetimibe [Zetia] 10 mg PO DAILY 10/21/17 02/01/18 gabapentin 300 mg PO TID 10/21/17 02/01/18 amitriptyline 10 mg PO DAILY 02/01/18 02/01/18 gabapentin 300 mg PO TID 02/01/18 02/01/18 verapamil 180 mg PO Q12H 02/01/18 02/01/18 Previous Rx's Medication Instructions Recorded ropinirole [Requip] 2 mg PO Q8HR #90 tab 09/01/17 Allergies Allergy/AdvReac Type Severity Reaction Status Date / Time amlodipine Allergy Intermediate Rash Verified 10/21/17 15:03 atorvastatin Allergy Intermediate Rash Verified 10/21/17 15:03 penicillin G Allergy Intermediate Rash Verified 10/21/17 15:03 pravastatin Allergy Intermediate Rash Verified 10/21/17 15:03 simvastatin Allergy Intermediate Rash Verified 10/21/17 15:03 fluoxetine Allergy Unknown Twitching Verified 10/21/17 15:03 pregabalin AdvReac Intermediate Hallucinati Verified 10/21/17 15:03 ons Review of Systems ROS: all other systems reviewed are negative [facility] Social History Social History Substance History: No History of Abuse Second Hand Smoke Exposure: Yes Smoking Status: Never smoker How Often Do You Have a Drink Containing Alcohol: Never Recent Travel in [facility] within the Last 8 Weeks: No Recent Out of Country Travel within the Last 8 Weeks: No Exam Narrative Exam Narrative: GENERAL: This is a well-developed well-nourished female in no acute distress. SKIN: Warm and dry. HEAD: Atraumatic. Normocephalic. EYES: Pupils equal and round. No scleral icterus. No injection or drainage. ENT: No nasal bleeding or discharge. Mucous membranes pink and moist. NECK: Trachea midline. No JVD. CARDIOVASCULAR: Regular rate and rhythm. No murmur appreciated. RESPIRATORY: No accessory muscle use. Coarse breath sounds bilaterally, expiratory wheezing noted bilaterally. GASTROINTESTINAL: Abdomen soft, non-tender, nondistended. Hepatic and splenic margins not palpable. MUSCULOSKELETAL: No obvious deformities. No clubbing. No cyanosis. No edema. NEUROLOGICAL: Awake and alert. No obvious cranial nerve deficits. Motor grossly within normal limits. Normal speech. Course Initial Documented Vital Signs Pulse Rate 100 H 02/01/18 21:21 Respiratory Rate 24 02/01/18 21:21 Blood Pressure 171/77 H 02/01/18 21:21 Pulse Oximetry 95 02/01/18 21:21 Last Documented Vital Signs Temperature 98.7 F 02/02/18 15:00 Pulse Rate 92 H 02/02/18 17:09 Respiratory Rate 16 02/02/18 17:09 Blood Pressure 140/79 02/02/18 15:00 Pulse Oximetry 94 L 02/02/18 15:00 Medical Decision Making JOI Attestation JOI supervised visit: Yes Attestation: I, Dr. Pozo, have reviewed the advance practice practitioner's documentation and am in agreement, met with the patient face to face, made the diagnosis, and the medical decision making was done by me. The patient was initially evaluated by raine Johnson PA. Please see their complete history and physical. *My assessment and Findings: The patient presents with a history of cough and congestion that began approximately a week ago. The patient reports that the cough has been progressively worsening and at times productive of yellow sputum. The patient reports that she has also now been experiencing shortness of breath that became much worse today. The patient's examination is remarkable for generalized coarse breath sounds with soft expiratory wheezes bilaterally. During the course of the patient's emergency department visit, the patient's history, examination, and differential diagnosis were reviewed with the patient. The patient was placed on a monitoring and evaluation advisor with oximetry and frequent blood pressure monitoring. The patient had IV access obtained and blood work sent for analysis. The patient was initially provided a DuoNeb x1, Rocephin 1 g IV, Zithromax 500 IV. The patient's diagnostic studies were reviewed and remarkable for a white count of 14.3, hemoglobin 13.8, platelets 246 with a normal differential PT differential, chemistry is remarkable for an anion gap of 4, calcium 8.1, alk phos 133, CPK 230, MB percent 2.5, troponin I less than 0.02, albumin 3.3, a chest x-ray revealed no acute abnormality, chronic elevation of the right hemidiaphragm with findings suggestive of a right middle and right lower lobe collapse from uncertain etiology. A CTA to further evaluate to rule out PE and evaluate for possible underlying infiltrates was also ordered. CTA was negative for pulmonary embolism, however enlargement of pulmonary arteries indicating possible pulmonary artery hypertension was noted, prominent right lower lobe atelectasis/consolidation with elevation of the right hemidiaphragm similar to prior study. 3 cm bulla in the anterior right upper lung zone, unchanged, patchy nonspecific bilateral groundglass pulmonary opacities. These areas are suspicious for a new underlying bilateral pneumonia. The patient's case including history, pertinent physical examination findings, and laboratory studies were discussed with Dr. Katz. It was agreed that the patient would be admitted to the hospitalist service. The patient's results were discussed with the patient, including the plan of care. I explained that further testing and/ or monitoring is indicated based on the patient's history, examination, and/ or laboratory findings. Therefore, I recommended admission for additional evaluation. The patient expressed understanding and was agreeable with this plan. The patient was admitted to the hospital in stable condition and sent to a bed under the care of the [facility] service. MDM Narrative Medical decision making narrative: The patient was placed on ECG monitoring pulse oximetry. Twelve-lead EKG was ordered. Lab work, chest x-ray ordered. The patient was given DuoNeb treatment. CBC reveals a WBC count of 14.5, Rocephin and azithromycin initiatedallergic to penicillin but has had cephalosporins in the past with no problems. Chest x-ray reveals chronic elevation of the right hemidiaphragm however there are findings today suggestive of right middle and lower lobe collapse/volume loss in comparison to previous chest x-ray in 2016. A CTA is currently pending. At the end of my shift the patient was signed out to Dr. Pozo pending CTA results. Medical Screen Exam Complete: Yes Emergency Medical Condition: Yes Differential Diagnosis Differential Diagnosis: Pneumonia, bronchitis, influenza, pulmonary embolism, acute coronary syndrome Lab Data Result diagrams: 02/01/18 21:46 02/01/18 21:46 Lab Results 02/01/18 02/01/18 02/01/18 Range/Units 21:46 21:46 21:46 WBC 14.3 H (4.0-11.0) th/mm3 RBC 4.45 (4.00-5.30) mil/mm3 Hgb 13.8 (11.6-15.3) gm/dL Hct 41.2 (35.0-46.0) % MCV 92.6 (80.0-100.0) fL MCH 31.1 (27.0-34.0) pg MCHC 33.6 (32.0-36.0) % RDW 13.8 (11.6-17.2) % Plt Count 246 (150-450) th/mm3 MPV 8.2 (7.0-11.0) fL Prelim Diff (Auto) Slide review pending Neut % (Auto) 54.7 (16.0-70.0) % Lymph % (Auto) 39.5 (9.0-44.0) % [place] % (Auto) 3.6 (0.0-8.0) % Eos % (Auto) 1.8 (0.0-4.0) % Baso % (Auto) 0.4 (0.0-2.0) % Neut # (Auto) 7.8 H (1.8-7.7) th/mm3 Lymph # (Auto) 5.6 H (1.0-4.8) th/mm3 [place] # (Auto) 0.5 (0.0-0.9) th/mm3 Eos # (Auto) 0.3 (0.0-0.4) th/mm3 Baso # (Auto) 0.1 (0.0-0.2) th/mm3 WBC Differential Manual diff final Seg Neuts % (Manual) 59 (16-70) % Lymphocytes % (Manual) 37 (9-44) % Monocytes % (Manual) 2 (0-8) % Eosinophils % (Manual) 1 (0-4) % Basophils % (Manual) 1 (0-2) % Abs Neuts (Manual) 8.4 H (1.8-7.7) th/mm3 Differential Comment . Platelet Estimate Normal (Normal) Platelet Morphology Normal (Normal) RBC Morphology Normal (Normal) Sodium 138 (136-145) meq/L Potassium 5.0 (3.5-5.1) meq/L Chloride 104 (98-107) meq/L Carbon Dioxide 29.8 (21.0-32.0) meq/L Anion Gap 4 L (5-15) meq/L BUN 18 (7-18) mg/dL Creatinine 0.56 (0.50-1.00) mg/dL Estimated GFR Greater than 89 (>89) mL/min Random Glucose 100 (74-106) mg/dL Lactic Acid 1.7 (0.4-2.0) mmol/L Calcium 8.1 L (8.5-10.1) mg/dL Magnesium 2.0 (1.5-2.5) mg/dL Total Bilirubin 0.4 (0.2-1.0) mg/dL AST 37 (15-37) U/L ALT 13 (10-53) U/L Alkaline Phosphatase 133 H (45-117) U/L Total Creatine Kinase 230 H (26-192) U/L CK-MB (CK-2) 5.8 H (0.5-3.6) ng/mL CK-MB (CK-2) % 2.5 (0.0-4.0) % Troponin I Less than 0.02 L (0.02-0.05) ng/mL Total Protein 7.2 (6.4-8.2) g/dL Total Protein (PEP) (6.4-8.2) gm/dL Albumin 3.3 L (3.4-5.0) g/dL 02/02/18 02/02/18 Range/Units 07:53 15:53 WBC (4.0-11.0) th/mm3 RBC (4.00-5.30) mil/mm3 Hgb (11.6-15.3) gm/dL Hct (35.0-46.0) % MCV (80.0-100.0) fL MCH (27.0-34.0) pg MCHC (32.0-36.0) % RDW (11.6-17.2) % Plt Count (150-450) th/mm3 MPV (7.0-11.0) fL Prelim Diff (Auto) Neut % (Auto) (16.0-70.0) % Lymph % (Auto) (9.0-44.0) % Montague % (Auto) (0.0-8.0) % Eos % (Auto) (0.0-4.0) % Baso % (Auto) (0.0-2.0) % Neut # (Auto) (1.8-7.7) th/mm3 Lymph # (Auto) (1.0-4.8) th/mm3 Mont[place] # (Auto) (0.0-0.9) th/mm3 Eos # (Auto) (0.0-0.4) th/mm3 Baso # (Auto) (0.0-0.2) th/mm3 WBC Differential Seg Neuts % (Manual) (16-70) % Lymphocytes % (Manual) (9-44) % Monocytes % (Manual) (0-8) % Eosinophils % (Manual) (0-4) % Basophils % (Manual) (0-2) % Abs Neuts (Manual) (1.8-7.7) th/mm3 Differential Comment Platelet Estimate (Normal) Platelet Morphology (Normal) RBC Morphology (Normal) Sodium (136-145) meq/L Potassium (3.5-5.1) meq/L Chloride (98-107) meq/L Carbon Dioxide (21.0-32.0) meq/L Anion Gap (5-15) meq/L BUN (7-18) mg/dL Creatinine (0.50-1.00) mg/dL Estimated GFR (>89) mL/min Random Glucose (74-106) mg/dL Lactic Acid (0.4-2.0) mmol/L Calcium (8.5-10.1) mg/dL Magnesium (1.5-2.5) mg/dL Total Bilirubin (0.2-1.0) mg/dL AST (15-37) U/L ALT (10-53) U/L Alkaline Phosphatase (45-117) U/L Total Creatine Kinase (26-192) U/L CK-MB (CK-2) (0.5-3.6) ng/mL CK-MB (CK-2) % (0.0-4.0) % Troponin I Less than 0.02 L (0.02-0.05) ng/mL Total Protein (6.4-8.2) g/dL Total Protein (PEP) 6.9 (6.4-8.2) gm/dL Albumin (3.4-5.0) g/dL Imaging Data Radiologist's impression: Chest X-Ray 02/01/18 21:31 CONCLUSION: No acute abnormality is identified. 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 The elevated right hemidiaphragm has been present since 2016 but the right middle and lower lobe collapse/volume loss has progressed since that time. Chest CTA 02/01/18 22:26 CONCLUSION: 1. No evidence of pulmonary embolus. Enlargement of the pulmonary arteries indicating possible pulmonary arterial hypertension. 2. Prominent right lower lobe atelectasis/consolidation with elevation of the right hemidiaphragm. Similar to the prior study. 3. 3 cm bulla in the anterior right upper lung zone. Unchanged from prior study. 4. Patchy nonspecific bilateral groundglass pulmonary opacity. Discharge Plan Discharge Disposition Patient Disposition: ED Admit(ED Internal Use Only) Discharge Order Discharge Orders: ED Use Only Admit Order (Routine); Ordered 02/02/18 Ordered By: Maya Pozo Discharge Details Diagnosis: Bilateral pneumonia Physicians Team ED Provider: Maya Pozo ED Midlevel Provider: Alex Olson Primary Care Provider: UNKNOWN, Attending Provider: India Long Other Providers: Pop Lindsey ; Mary Manzo Status ED Status: Left Department Discharge Information Discharge Date/Time: 02/02/18 03:48
[2018-02-01 22:06] LABS: Baso # (Auto) 0.1 th/mm3 (0.0-0.2); Baso % (Auto) 0.4 % (0.0-2.0); Eos # (Auto) 0.3 th/mm3 (0.0-0.4); Eos % (Auto) 1.8 % (0.0-4.0); Hematocrit 41.2 % (35.0-46.0); Hemoglobin 13.8 gm/dL (11.6-15.3); Lymph # (Auto) 5.6 th/mm3 (1.0-4.8); Lymph % (Auto) 39.5 % (9.0-44.0); Mean Corpuscular HGB Conc 33.6 % (32.0-36.0); Mean Corpuscular Hemoglobin 31.1 pg (27.0-34.0); Mean Corpuscular Volume 92.6 fL (80.0-100.0); Mean Platelet Volume 8.2 fL (7.0-11.0); Mono # (Auto) 0.5 th/mm3 (0.0-0.9); Mono % (Auto) 3.6 % (0.0-8.0); Neut # (Auto) 7.8 th/mm3 (1.8-7.7); Neut % (Auto) 54.7 % (16.0-70.0); Platelet Count 246 th/mm3 (150-450); Red Blood Count 4.45 mil/mm3 (4.00-5.30); Red Cell Distribution Width 13.8 % (11.6-17.2); White Blood Count 14.3 th/mm3 (4.0-11.0)
--- NOTE | 2018-02-01 22:14 | XR ---
EXAM DATE: 02/01/2018 10:09 PM EST AGE/SEX: 77 years / Female INDICATIONS: . Cough. CLINICAL DATA: This is the patient's initial encounter. Patient reports that signs and symptoms have been present for 1 week and indicates a pain score of 0/10. MEDICAL/SURGICAL HISTORY: Hypertension. None. COMPARISON: [facility] [place], CTA PULMONARY W CONTRAST W 3D, 10/03/2017. [facility], CHEST 1V SINGLE AP, 10/03/2017. [facility], CHEST PA & LAT, 04/10/2017. [facility], XR CHEST PA AND LAT, 04/21/2014. C, CT PULMONARY ANGIOGRAM, 10/24/2015. . FINDINGS: PA and lateral views of the chest demonstrate a normal-sized cardiac silhouette. There is elevation o f the right hemidiaphragm with opacity at the right base characteristic of middle and lower lobe amparo apse. Trachea is deviated to the right indicating right lung volume loss. No effusion, consolidation, or pneumothorax is identified. The bones and soft tissues demonstrate no acute abnormality. There is stable severe degenerative change at the right glenohumeral joint. CONCLUSION: No acute abnormality is identified. There is chronic elevation of the right hemidiaphragm with findin gs suggesting right middle and right lower lobe collapse from uncertain etiology. The elevated right hemidiaphragm has been present since 2015 but the right middle and lower lobe collapse/volume loss walls s progressed since that time. Electronically signed by: Perry Castaneda MD 02/01/2018 10:13 PM EST
[2018-02-01] MEDS ORDERED: Azithromycin Inj 500 MG in Sodium Chlor 0.9% Inj 250 ML IV.SIG ONE (22:25)
[2018-02-01 22:28] LABS: Alanine Aminotransferase 13 U/L (10-53); Albumin 3.3 g/dL (3.4-5.0); Anion Gap 4 meq/L (5-15); Aspartate Aminotransferase 37 U/L (15-37); Blood Urea Nitrogen 18 mg/dL (7-18); Calcium 8.1 mg/dL (8.5-10.1); Carbon Dioxide 29.8 meq/L (21.0-32.0); Chloride 104 meq/L (98-107); Glomerular Filtration Rate Greater Than 89 mL/min (>89); Glucose,Random 100 mg/dL (74-106); Sodium 138 meq/L (136-145)
[2018-02-01 22:29] LABS: Alkaline Phosphatase 133 U/L (45-117); Creatine Kinase 230 U/L (26-192); Total Protein 7.2 g/dL (6.4-8.2)
[2018-02-01 22:42] LABS: CKMB Percent 2.5 % (0.0-4.0); Creatine Kinase MB 5.8 ng/mL (0.5-3.6)
[2018-02-01 22:50] LABS: Eosinophils 1 % (0-4); Lymphocytes 37 % (9-44); Monocytes 2 % (0-8); Platelet Estimate Normal (Normal)
[2018-02-01 22:51] LABS: Platelet Morphology Normal (Normal); RBC Morphology Normal (Normal)
[2018-02-01] MEDS ORDERED: Morphine Sulfate Inj 2 MG/ML Vial IV.PUSH ONE (22:57)
--- NOTE | 2018-02-01 23:55 | CT ---
EXAM DATE: 02/01/2018 11:39 PM EST AGE/SEX: 77 years / Female INDICATIONS: Productive cough X one week; rule out pulmonary embolus. CLINICAL DATA: This is the patient's initial encounter. Patient reports that signs and symptoms have been present for 1 day and indicates a pain score of 3/10. MEDICAL/SURGICAL HISTORY: Gastroesophageal reflux disease. Hypertension. Hysterectomy. Appendecto my. Lumbar fusion RADIATION DOSE: 10.74 CTDI (mGy) COMPARISON: 10/03/2017. TECHNIQUE: Volumetric scanning was performed using a multi-row detector CT scanner during bolus infu toby of 80 ml Omnipaque 350 (iohexol) nonionic water-soluble contrast as a single exam dose. The yolette a was post processed with a variety of visualization algorithms including full volume maximum intensi ty projection and sliding thin slab reformation. Using automated exposure control and adjustment of the mA and/or kV according to patient size, radiation dose was kept as low as reasonably achievable t o obtain optimal diagnostic quality images. DICOM format image data is available electronically for review and comparison. FINDINGS: Pulmonary Arteries: No filling defects in the coronary arteries to suggest pulmonary embolus. The ce ntral pulmonary arteries are enlarged indicating possible pulmonary arterial hypertension. Lun.9 cm bulla in the anterior right upper lung zone. Prominent right lower lobe atelectasis/con solidation with volume loss and air bronchograms. Mild patchy groundglass opacity in the lungs bilate rally. Atelectasis at the dependent portion of the left lower lobe. Effusion: None. Mediastinum: Mild coronary artery calcification. Aortic diameter within normal limits. Other: The axilla is unremarkable. Prominent left renal pelvis/parapelvic cyst in the left kidney. S evere right sided glenohumeral joint arthrosis moderate left-sided glenohumeral joint arthrosis. Dege nerative findings of the thoracic spine and upper lumbar spine. CONCLUSION: 1. No evidence of pulmonary embolus. Enlargement of the pulmonary arteries indicating possible pulmo nary arterial hypertension. 2. Prominent right lower lobe atelectasis/consolidation with elevation of the right hemidiaphragm. S imilar to the prior study. 3. 3 cm bulla in the anterior right upper lung zone. Unchanged from prior study. 4. Patchy nonspecific bilateral groundglass pulmonary opacity. Electronically signed by: Eliazar Sung MD 02/01/2018 11:54 PM EST
[2018-02-02] MEDS: MethylPREDNISolone Sod Succinate Inj 125 MG/2 ML Vial IV.PUSH SCH ×4 (02:16→21:00)
[2018-02-02] MEDS ORDERED: Bisacodyl 10 MG Supp RECTAL PRN (02:57)
[2018-02-02] MEDS ORDERED: Acetaminophen 325 MG Tablet PO PRN (02:57)
--- NOTE | 2018-02-02 06:38 | P.HPIM ---
History of Present Illness Primary Care Physician: UNKNOWN History of Present Illness: 77-year-old female with a history of reportedly restless leg syndrome who presents to the ER with a one-week history of progressively worsening cough productive of yellow sputum, sore throat, with a 1 day history of progressively worsening shortness of breath, sharp bilateral upper chest pain with coughing. She denies any dysphasia. Denies any recent medication changes. She reports that shortness of breath improved after Solu-Medrol. Inpatient Certification: I certify that the inpatient services were ordered in accordance with Medicare regulations governing the order. This includes certification that hospital inpatient services are reasonable and necessary and in the case of services not specified as inpatient-only under 42 CFR 419.22(n), that they are appropriately provided as inpatient services in accordance to with the 2-midnight benchmark under 43 CFR 412.3(e) Estimated Total Length of Stay (Days): 2 Plans for Post Hospital Care: Not yet determined Review of Systems All other systems reviewed negative except as stated in [facility]PI [facility] - History History Provided By: Patient - Medical History Medical History: Medical History (Last Reviewed 02/02/18 @ 06:35 by Douglas Katz MD) Parkinson disease Chronic GERD Chronic pain History of hysterectomy Hyperlipidemia Hypertension Restless leg syndrome Serotonin syndrome - Surgical History Surgical History: Surgical History (Last Reviewed 02/02/18 @ 06:35 by Douglas Katz MD) History of cataract extraction History of lumbar laminectomy History of total left knee replacement H/O knee surgery H/O spinal fusion History of appendectomy - Family History Family History: Family History (Last Reviewed 02/02/18 @ 06:35 by Douglas Katz MD) Father ALS (amyotrophic lateral sclerosis) Sister No problems noted. Mother COPD (chronic obstructive pulmonary disease) - Tobacco History Second Hand Smoke Exposure: Yes Smoking Status: Never smoker - Alcohol History How Often Do You Have a Drink Containing Alcohol: Never - Substance Use History Substance History: No History of Abuse - Travel History Recent Travel in the [place] Within the Last 8 Weeks: No Recent Travel Out of the Country Within the Last 8 Weeks: No - Immunization History Tetanus Immunization: <5 Years Hx Influenza Vaccine This Season: No Medications and Allergies Active Medications: Active Medications Acetaminophen (Tylenol) 650 mg PO Q4H PRN PRN Reason: Temp > 100.4 Al Hydroxide/Mg Hydroxide (Milk Of Magnjonathan Liq) 30 ml PO Q12H PRN PRN Reason: Mild Constipation Bisacodyl (Dulcolax Supp) 10 mg RECTAL DAILY PRN PRN Reason: SEVERE CONSITIPATION Carbidopa/Levodopa (Sinemet 25/100 Mg) 1 tab PO TID COUNT INCLUDES THE [facility] Gabapentin (Neurontin) 300 mg PO BID COUNT INCLUDES THE [facility] Azithromycin 500 mg/ Sodium (Chloride) 250 mls @ 250 mls/hr IV.SIG Q24H COUNT INCLUDES THE [facility] Ceftriaxone Sodium 1,000 mg/ (Sodium Chloride) 100 mls @ 200 mls/hr IV.SIG Q24H COUNT INCLUDES THE [facility] Influenza Virus Vaccine (Fluarix (Quad) Vaccine Inj) 0.5 ml IM .ONCE ONE Stop: 02/02/18 09:01 Lactulose (Lactulose Liq) 30 ml PO DAILY PRN PRN Reason: SEVERE CONSITIPATION Methylprednisolone Sodium Succinate (Solumedrol Inj) 60 mg IV.PUSH Q6H COUNT INCLUDES THE [facility] Last Admin: 02/02/18 02:16 Dose: 60 mg Ondansetron HCl (Zofran Inj) 4 mg IV.PUSH Q6H PRN PRN Reason: NAUSEA OR VOMITING Primidone (Mysoline) 50 mg PO TID COUNT INCLUDES THE [facility] Ropinirole HCl (Requip) 2 mg PO Q8HR COUNT INCLUDES THE [facility] Last Admin: 02/02/18 06:07 Dose: 2 mg Sennosides (Senokot) 17.2 mg PO Q12H PRN PRN Reason: Moderate Constipation Sodium Chloride (Ns Flush) 2 ml IV.FLUSH PRN PRN PRN Reason: FLUSH AFTER USING IV ACCESS Sodium Chloride (Ns Flush) 2 ml IV.FLUSH BID COUNT INCLUDES THE [facility] Sodium Chloride (Ns Flush) 2 ml IV.FLUSH BID COUNT INCLUDES THE [facility] Sodium Chloride (Ns Flush) 2 ml IV.FLUSH PRN PRN PRN Reason: FLUSH AFTER USING IV ACCESS Verapamil HCl (Isoptin Sr) 180 mg PO Q12H COUNT INCLUDES THE [facility] Last Admin: 02/02/18 03:11 Dose: 180 mg Allergies Allergy/AdvReac Type Severity Reaction Status Date / Time amlodipine Allergy Intermediate Rash Verified 10/21/17 15:03 atorvastatin Allergy Intermediate Rash Verified 10/21/17 15:03 penicillin G Allergy Intermediate Rash Verified 10/21/17 15:03 pravastatin Allergy Intermediate Rash Verified 10/21/17 15:03 simvastatin Allergy Intermediate Rash Verified 10/21/17 15:03 fluoxetine Allergy Unknown Twitching Verified 10/21/17 15:03 pregabalin AdvReac Intermediate Hallucinati Verified 10/21/17 15:03 ons Home Medications Medication Instructions Recorded Confirmed Type carbidopa-levodopa 25 - 100 mg PO TID 08/27/17 02/01/18 History primidone 50 mg PO TID 08/27/17 02/01/18 History ezetimibe [Zetia] 10 mg PO DAILY 10/21/17 02/01/18 History gabapentin 300 mg PO TID 10/21/17 02/01/18 History amitriptyline 10 mg PO DAILY 02/01/18 02/01/18 History gabapentin 300 mg PO TID 02/01/18 02/01/18 History verapamil 180 mg PO Q12H 02/01/18 02/01/18 History Exam Vital signs: Vital Signs 02/01/18 21:21 02/01/18 21:30 02/01/18 23:57 Temperature 98.1 F Pulse Rate 100 H 98 H 89 Respiratory Rate 24 21 24 Blood Pressure 171/77 H 171/77 H 141/63 H Pulse Oximetry 95 95 98 02/02/18 02:53 02/02/18 03:00 02/02/18 04:00 Temperature 98.0 F Pulse Rate 94 H 91 H Respiratory Rate 18 17 Blood Pressure 175/80 H 165/82 H Pulse Oximetry 96 96 95 Intake & Output 02/01/18 02/01/18 02/02/18 06:59 18:59 06:59 Intake Total 350 / 350 Balance 350 / 350 Weight 122.9 kg Intake: IV 350 / 350 Azithromycin Inj 500 MG In NS 250 / 250 Inj 250 ML @ 250 mls/hr IV.SIG ONCE ONE Rx#:[id number] Rocephin Inj 2,000 MG In NS Inj 100 / 100 100 ML @ 200 mls/hr IV.SIG ONCE ONE Rx#:[id number] Other: # Voids 1 Weight On Admission 104.3 kg Narrative: GENERAL: Patient lying in bed. Appears comfortable. Alert and oriented x3. SKIN: Warm and dry. HEAD: Atraumatic. Normocephalic. EYES: Pupils equal and round. No scleral icterus. No injection or drainage. ENT: No nasal bleeding or discharge. Mucous membranes pink and moist. NECK: Trachea midline. No JVD. CARDIOVASCULAR: Regular rate and rhythm. RESPIRATORY: No accessory muscle use. Fine crackles bilaterally GASTROINTESTINAL: Abdomen soft, non-tender, nondistended. Hepatic and splenic margins not palpable. MUSCULOSKELETAL: Extremities without clubbing, cyanosis, or edema. No obvious deformities. NEUROLOGICAL: Awake and alert. No obvious cranial nerve deficits. Patient with marketed bilateral lower extremity tremor which she reports is chronic. Bilateral upper extremity tremor as well which is somewhat less pronounced. Five out of 5 muscle strength in the arms and legs. Normal speech. PSYCHIATRIC: Appropriate mood and affect; insight and judgment normal. Results - Labs CBC & Chem 7: 02/01/18 21:46 02/01/18 21:46 Labs: Short CBC 02/01/18 Range/Units 21:46 WBC 14.3 H (4.0-11.0) th/mm3 Hgb 13.8 (11.6-15.3) gm/dL Hct 41.2 (35.0-46.0) % Plt Count 246 (150-450) th/mm3 BMP 02/01/18 21:46 Sodium 138 Potassium 5.0 Chloride 104 Carbon Dioxide 29.8 BUN 18 Creatinine 0.56 Calcium 8.1 L Cardiac Enzymes 02/01/18 Range/Units 21:46 Total Creatine Kinase 230 H (26-192) U/L CK-MB (CK-2) 5.8 H (0.5-3.6) ng/mL Troponin I Less than 0.02 L (0.02-0.05) ng/mL Liver Function 02/01/18 Range/Units 21:46 Total Bilirubin 0.4 (0.2-1.0) mg/dL AST 37 (15-37) U/L ALT 13 (10-53) U/L Alkaline Phosphatase 133 H (45-117) U/L Albumin 3.3 L (3.4-5.0) g/dL - Imaging Impressions Chest X-Ray 02/01/18 21:31 CONCLUSION: No acute abnormality is identified. 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 The elevated right hemidiaphragm has been present since 2016 but the right middle and lower lobe collapse/volume loss has progressed since that time. Chest CTA 02/01/18 22:26 CONCLUSION: 1. No evidence of pulmonary embolus. Enlargement of the pulmonary arteries indicating possible pulmonary arterial hypertension. 2. Prominent right lower lobe atelectasis/consolidation with elevation of the right hemidiaphragm. Similar to the prior study. 3. 3 cm bulla in the anterior right upper lung zone. Unchanged from prior study. 4. Patchy nonspecific bilateral groundglass pulmonary opacity. Caprini VTE Risk Assessment Caprini VTE Risk Assessment: Moderate/High Risk (score >= 2) Caprini Risk Assessment Model: Point Value = 1 Point Value = 2 Point Value = 3 Point Value = 5 Age 41-60 Minor surgery BMI > 25 kg/m2 Swollen legs Varicose veins or History of unexplained or recurrent spontaneous Oral contraceptives or hormone replacement Sepsis (< 1 month) Serious lung disease, including pneumonia (< 1 month) Abnormal pulmonary function Acute myocardial infarction Congestive heart failure (< 1 month) History of inflammatory bowel disease Medical patient at bed rest Age 61-74 Arthroscopic surgery Major open surgery (> 45 min) Laparoscopic surgery (> 45 min) Malignancy Confined to bed (> 72 hours) Immobilizing plaster cast Central venous access Age >= 75 History of VTE Family history of VTE Factor V Leiden Prothrombin [id number] Lupus anticoagulant Anticardiolipin antibodies Elevated serum homocysteine Heparin-induced thrombocytopenia Other congenital or acquired thrombophilia Stroke (< 1 month) Elective arthroplasty Hip, pelvis, or leg fracture Acute spinal cord injury (< 1 month) Prophylaxis Regimen: Total Risk Factor Score Risk Level Prophylaxis Regimen 0-1 Low Early ambulation 2 Moderate Order ONE of the following: *Sequential Compression Device (SCD) *Heparin 5000 units SQ BID 3-4 Higher Order ONE of the following medications: *Heparin 5000 units SQ TID *Enoxaparin/Lovenox 40 mg SQ daily (WT < 150 kg, CrCl > 30 mL/min) *Enoxaparin/Lovenox 30 mg SQ daily (WT < 150 kg, CrCl > 10-29 mL/min) *Enoxaparin/Lovenox 30 mg SQ BID (WT < 150 kg, CrCl > 30 mL/min) AND/OR *Sequential Compression Device (SCD) 5 or more Highest Order ONE of the following medications: *Heparin 5000 units SQ TID (Preferred with Epidurals) *Enoxaparin/Lovenox 40 mg SQ daily (WT < 150 kg, CrCl > 30 mL/min) *Enoxaparin/Lovenox 30 mg SQ daily (WT < 150 kg, CrCl > 10-29 mL/min) *Enoxaparin/Lovenox 30 mg SQ BID (WT < 150 kg, CrCl > 30 mL/min) AND *Sequential Compression Device (SCD) Assessment and Plan - Plan //Suspected sepsis //Bilateral community-acquired pneumonia //Suspected COPD //Likely pulmonary hypertension as suggested by appearance on CT. -With heart rate in the 90s, leukocytosis, pneumonia on CT chest -CT chest negative for pulmonary embolism, however does show prominent right lower lobe atelectasis/consolidation with elevation of the right hemidiaphragm similar to prior study. -Also with patchy nonspecific bilateral groundglass pulmonary opacity. -Due to chronic right lower lung opacification, consolidation, patient may benefit from BAL. Pulmonology consult. -We will treat with broad-spectrum antibiotics, duo nebs, steroids. 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 Previously seen by Dr. Barragan earlier this year. = May benefit from oncology consultation. Patient appears to be more agreeable to further workup. //Suspected neuromuscular disorder //History of restless leg syndrome. With family history of ALS -Continue patient's home medications for now. With elevated right hemidiaphragm. Will consult neurology. Suspect that neuromuscular disorder may be increasing patient's risk of pneumonia. //Hyperlipidemia. Tinea on home medication. Discussed Condition With: Patient, nurse, ED physician. H&P: Quality - VTE Deep Vein Thrombosis/Pulmonary Embolism Present on Admission: No
[2018-02-02] MEDS ORDERED: Influenza (Quadrivalent) Vaccine 0.5 ML Syringe IM ONE (09:00)
[2018-02-02] MEDS ORDERED: Gabapentin 300 MG Capsule PO SCH (09:00)
[2018-02-02] MEDS: Primidone 50 MG Tablet PO SCH ×3 (09:14→18:12)
[2018-02-02] MEDS: Ezetimibe 10 MG Tablet PO SCH (09:14)
--- NOTE | 2018-02-02 15:55 | MB ---
cc: Mary Manzo MD DATE: 02/02/2018 REASON FOR CONSULTATION: History of tremor in the legs, possible neuromuscular disease. HISTORY OF PRESENT ILLNESS: The patient is a 77-year-old woman with a history of tremor in the legs for some time now. She was started on Sinemet, gabapentin, primidone and Requip, she states, initially by her family doctor, Dr. Shoemaker, but I see Dr. Godinez had seen her in the past and increased her Requip to 2 mg every 8 hours. She is admitted with some productive cough, worsening shortness of breath, possible pneumonia. 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 She has a history, she states, of rotatory scoliosis. The patient has decreased feeling in her feet. She states she has not ambulated in some time because of knee issues. Her family member states that the long-term had dropped on her knees and she needs knee replacements, but cannot have it done at this point in time, so she does not ambulate. She is basically chair, bedridden. She does not have Parkinson's disease. She has what looks like a possible restless leg, hypertension, hyperlipidemia, reflux, chronic pain, multiple back surgeries, left knee replacement, spinal fusion. FAMILY HISTORY: Father had ALS. Sister: No medical problems. Mother: COPD. SOCIAL HISTORY: She is exposed to secondhand smoke, never smoked, does not drink. No history of abuse. HOME MEDICATIONS: 1. Sinemet 25/100 mg t.i.d. 2. Primidone 50 mg t.i.d. 3. Gabapentin 300 mg t.i.d. 4. Elavil 10 mg daily. 5. Verapamil 180 mg every 12. 6. Zetia 10 mg daily PHYSICAL EXAMINATION: GENERAL: She is a pleasant woman lying in bed in no distress. VITAL SIGNS: Temperature is 98, pulse 93, respiratory rate 16, blood pressure is elevated 197/84, saturating at 94%. NEUROLOGIC: She is awake, alert. She is fluent. Her pupils react. Face is symmetrical. Tongue midline. Upper extremity strength is intact. She does not have any tremor. No rigidity in her arms. [id number]: No past pointing. Lower extremity, she has difficulty lifting leg her legs up, but she has diffuse weakness which is seen. Chronic pain over her knees to palpation. She has diffuse edema. She can feel light touch and temperature. She cannot feel position sense. Toes, she feels noxious stimuli when I tried to do a Babinski. She does have constant movement of her legs, but her tone is normal. She is moving them at will and cannot stop it. IMAGING: She had scans of her cervical, thoracic spine in the past as well as her lumbar; reviewed in chart.; they are in her medical chart. LABORATORY DATA: Her last time, per Dr. Godinez's note, that she had abnormal electrophoresis, that was to be followed. I am not sure if that was. Going back into old charts as well, looking at his notes there was a IPEP result that was abnormal. Other labs were unremarkable as far as B12 levels. He also did a myasthenia panel that was negative. ALYSSIA was elevated at 1:160, speckled. He checked a ferritin that was normal; iron was a bit low at 40, B12 was 503, B6 was 3, thiamin was 141. TSH was normal. Her RPR was 1:1 reactive, but FTA antibody was nonreactive. IMPRESSION: Possible restless leg syndrome. She may have some component of neuropathy because of her lumbar spine. As you know, she has had multiple surgeries, so may be a multifactorial issue. I would recommend increasing her gabapentin from 3 times a day to 4 times a day. She is currently on Requip 2 mg every 8 hours; continue primidone 50 mg t.i.d. and continue current dose of Sinemet. But gabapentin and Sinemet can be increased to 4 times a day, breakfast, lunch, dinner and at bedtime. I would repeat the electrophoresis and the PT evaluation if she is able. I doubt she is able to stand. She has not walked, but range of motion exercises can be taught to the patient to do on her own. I did discuss possibly, as an outpatient, doing EMG/nerve conduction studies. She is not very keen on the needle portion, so I am not sure if she will follow through with that. In any case, certainly she can be assessed in the office. Regarding her right hemidiaphragm, it may be nerve damage from her multiple back surgeries. The Smith rods, she states, are from the shoulder blades, as per the patient's recollection, all the way down to her lower spine, lumbar region. There may be some chronic nerve damage. I do not think this is a neuromuscular disorder; however, certainly she could seek assessment at a tertiary center; however, continue current recommendations. MD FAY Arita/octavio/cali , 02:29 PM , 02:41 PM
--- NOTE | 2018-02-02 16:57 | MB ---
cc: Pop Lindsey MD DATE: 02/02/2018 REQUESTING PHYSICIAN: Dr. Katz. REASON FOR CONSULTATION: Evaluation of shortness of breath and pneumonia. HISTORY OF PRESENT ILLNESS: Ms. Garcia is a pleasant 77-year-old obese female who is bedridden for 2 years or so. She says that she had pain on her back and ankle. After that, she was not able to do any activity and she has lost the strength and is bedridden. Now she even needs help transferring her from the bed to the chair. She came to the hospital with a 1-week history of worsening of her shortness of breath. She has cough and congestion. No fever, no chest pain. No nausea or vomiting. Because of worsening of her symptoms, she came to the hospital. She had a workup done. She had a CTA of the chest done and it does not show any pulmonary embolism. It shows 3 cm bullae in the right upper lobe, elevation of the right hemidiaphragm with possible underlying atelectasis and consolidation. Her CBC showed WBC count 14.3, hemoglobin 13.8, hematocrit 41.1, . Sodium 138, potassium 5.0, chloride 104, CO2 29, BUN 18, creatinine 0.56. PAST MEDICAL HISTORY: Significant for history of hypertension, back surgery, knee surgery, hyperlipidemia, chronic pain, restless leg syndrome, cataract surgeries and she is bedridden for 2 years. MEDICATIONS: She is currently takin. Milk of Magnesia. 2. Nebulizer treatment 4 times a day. 3. Zithromax 500 mg a day. 4. Carbidopa/levodopa 25/100 three times a day. 5. Rocephin 1 gram a day. 6. Zetia 10 mg a day. 7. Neurontin 300 mg 3 times a day. 8. Solu-Medrol 60 mg every 6 hours. 9. Primidone 50 mg a day. 10. Requip 2 mg every 8 hours. 11. Verapamil 180 mg a day. ALLERGIES: SHE IS ALLERGIC TO AMLODIPINE, ATORVASTATIN, PENICILLIN, PRAVASTATIN, SIMVASTATIN. 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 She has not worked for some time. FAMILY HISTORY: She is and lives with her and a child. FAMILY HISTORY: She has 5 children. REVIEW OF SYSTEMS: She is bedridden for 2 years. Also, she needs total care on the transfer from the bed to the chair. She uses a bedpan. Denies any stroke; no DVT or pulmonary embolism. PHYSICAL EXAMINATION: GENERAL: An obese female, not in any acute distress. VITAL SIGNS: Blood pressure 164/77, heart rate 84, respirations 16, temperature 98.1. HEENT: Pupils are equal and reactive to light. She had bilateral cataract surgery done. Oral mucosa and nasal mucosa normal. NECK: Supple. JVP not raised. CHEST: Symmetrical bilaterally. No rhonchi. HEART: S1, S2 normal. ABDOMEN: Obese, nontender. Bowel sounds are present. EXTREMITIES: No edema. IMPRESSION: 1. Shortness of breath. No evidence of pulmonary embolism. 2. Secondhand smoke exposure. 3. Bullous disease of the lung. 4. Hypertension. 5. Chronic bedridden status. 6. Hyperlipidemia. PLAN: I discussed with the patient and her daughter she has atelectasis in the lung and will give her antibiotic, give her aerosol treatment, wean her off oxygen. I will also check a bedside pulmonary function study. The patient's family is planning to put her into a facility because it is becoming difficult for them to take care of her. Further treatment will depend on her course in the hospital. Thank you, Dr. Katz, for this consult. MD MARCIAL Olson/octavio/cali , 03:18 PM , 03:31 PM [facility]IX[facility]
[2018-02-02] MEDS: Gabapentin 300 MG Capsule PO SCH (18:12)
--- NOTE | 2018-02-02 19:13 | ECG ---
Date Performed: 02/02/2018 Time Performed: 10:26:54 PTAGE: 77 years EKG: Sinus rhythm POSSIBLE LEFT ATRIAL ENLARGEMENT RIGHT BUNDLE BRANCH BLOCK LEFT ANTERIOR FASCICULAR BLOCK POSSIBLE A NTEROSEPTAL MYOCARDIAL INFARCTION , OF INDETERMINATE AGE ABNORMAL ECG PREVIOUS TRACING : 02/01/2018 21.46 Since the previous tracing, no significant change noted DOCTOR: Edgar Goodrich Interpretating Date/Time 02/02/2018 19:11:49
--- NOTE | 2018-02-02 19:13 | ECG ---
Date Performed: 02/01/2018 Time Performed: 21:46:37 PTAGE: 77 years EKG: Sinus rhythm POSSIBLE LEFT ATRIAL ENLARGEMENT RIGHT BUNDLE BRANCH BLOCK LEFT ANTERIOR FASCICULAR BLOCK PROBABLE A NTERIOR MYOCARDIAL INFARCTION ABNORMAL ECG PREVIOUS TRACING : 10/03/2017 19.35 Since the previous tracing, no significant change noted DOCTOR: Edgar Goodrich Interpretating Date/Time 02/02/2018 19:11:42
[2018-02-02] MEDS ORDERED: Vancomycin Consult Pharmacy OTHER PRN (20:45)
[2018-02-02] MEDS ORDERED: Vancomycin Inj 2,000 MG in Sodium Chlor 0.9% Inj 500 ML IV.SIG ONE (20:50)
[2018-02-02] MEDS ORDERED: Azithromycin Inj 500 MG in Sodium Chlor 0.9% Inj 250 ML IV.SIG SCH (22:00)
[2018-02-03] MEDS: MethylPREDNISolone Sod Succinate Inj 125 MG/2 ML Vial IV.PUSH SCH ×4 (01:42→20:33)
[2018-02-03 06:23] LABS: Baso % (Auto) 0.1 % (0.0-2.0); Hematocrit 39.9 % (35.0-46.0); Hemoglobin 13.7 gm/dL (11.6-15.3); Lymph # (Auto) 1.7 th/mm3 (1.0-4.8); Mean Corpuscular HGB Conc 34.3 % (32.0-36.0); Mean Corpuscular Hemoglobin 31.9 pg (27.0-34.0); Mean Corpuscular Volume 93.1 fL (80.0-100.0); Mean Platelet Volume 8.2 fL (7.0-11.0); Mono # (Auto) 0.2 th/mm3 (0.0-0.9); Mono % (Auto) 1.8 % (0.0-8.0); Neut # (Auto) 7.4 th/mm3 (1.8-7.7); Neut % (Auto) 80.1 % (16.0-70.0); Platelet Count 209 th/mm3 (150-450); Red Blood Count 4.29 mil/mm3 (4.00-5.30); Red Cell Distribution Width 13.8 % (11.6-17.2); White Blood Count 9.3 th/mm3 (4.0-11.0)
[2018-02-03 06:44] LABS: Alanine Aminotransferase 30 U/L (10-53); Albumin 3.1 g/dL (3.4-5.0); Alkaline Phosphatase 122 U/L (45-117); Anion Gap 9 meq/L (5-15); Aspartate Aminotransferase 20 U/L (15-37); Blood Urea Nitrogen 16 mg/dL (7-18); Calcium 8.5 mg/dL (8.5-10.1); Carbon Dioxide 28.4 meq/L (21.0-32.0); Chloride 101 meq/L (98-107); Glomerular Filtration Rate Greater Than 89 mL/min (>89); Glucose,Random 158 mg/dL (74-106); Potassium 4.3 meq/L (3.5-5.1); Sodium 138 meq/L (136-145); Total Protein 7.5 g/dL (6.4-8.2)
[2018-02-03] MEDS: Ezetimibe 10 MG Tablet PO SCH (08:06)
[2018-02-03] MEDS: Gabapentin 300 MG Capsule PO SCH ×3 (08:07→17:39)
[2018-02-03] MEDS: Primidone 50 MG Tablet PO SCH ×3 (08:07→17:40)
--- NOTE | 2018-02-03 15:22 | P.PNIM ---
Subjective Interval history: Reports breathing is much better. Dry cough not productive. No chills or fever. No complaints of chest pain. Has chronic low back pain and does not want to undergo any further tests that may be painful. Reports that she is usually bedbound or chair bound and does not ambulate at home. She states her daughter does take care for her and has a hospital bed at home. She is wanting to go home versus rehab when she is improved. Physical Exam Vital signs: Last Vital Signs Temp 98.3 F 02/03/18 12:00 Pulse 104 H 02/03/18 12:00 Resp 18 02/03/18 12:00 BP 133/82 02/03/18 12:00 Pulse Ox 95 02/03/18 12:00 Intake & Output 02/01/18 02/02/18 02/03/18 02/04/18 06:59 06:59 06:59 06:59 Intake Total 350 / 350 2550 / 2550 Output Total 1900 / 1900 Balance 350 / 350 650 / 650 Weight 122.9 kg 125.6 kg Narrative: GENERAL: This is a well-nourished, well-developed obese, patient, in no apparent distress. CARDIOVASCULAR: Regular rate and rhythm RESPIRATORY: Few left basilar crackles GASTROINTESTINAL: Abdomen soft, non-tender, nondistended. Normal active bowel sounds MUSCULOSKELETAL: Bilateral SCDs NEURO: Alert & Oriented x4 to person, place, time, situation. Involuntary tremors bilateral upper extremities, generalized weakness upper and lower extremities Results Labs CBC & Chem 7: 02/03/18 05:38 02/03/18 05:38 Labs: Microbiology 02/01/18 21:41 Blood - Peripheral Aerobic Blood Culture - Preliminary gram positive cocci 02/01/18 21:41 Blood - Peripheral Anaerobic Blood Culture - Preliminary gram positive cocci 02/01/18 21:46 Blood - Peripheral Aerobic Blood Culture - Preliminary No growth in 2 days 02/01/18 21:46 Blood - Peripheral Anaerobic Blood Culture - Preliminary No growth in 2 days Assessment and Plan Plan 77-year-old white female presents with one-week history of progressively worsening productive cough and shortness of breath with Sepsis present on admission with leukocytosis and tachycardia with lactic acid 1.7 with sores of bilateral community acquired pneumonia Bilateral community-acquired pneumonia Suspected COPD Likely pulmonary hypertension as suggested by appearance on CT. -CT chest negative for pulmonary embolism, however does show prominent right lower lobe atelectasis/consolidation with elevation of the right hemidiaphragm similar to prior study. -Also with patchy nonspecific bilateral groundglass pulmonary opacity. Pulmonology has been consulted and per Dr. Lindsey will continue with DuoNeb treatments, antibiotics and wean oxygen as tolerated. He will check a bedside pulmonary function study. Continue with IV Rocephin and transition to p.o. azithromycin. Continue steroids. 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 Barragan back in August of this year. Patient still is declining further evaluation and workup with bone marrow biopsy. Counseled her to follow-up as an outpatient. Possible underlying neuropathy with a history of extensive degenerative disc disease and currently nonambulatory and bedbound requiring assistance on all activities of daily living. History of restless leg syndrome. With family history of ALS Appreciate neurology recommendations and plan to increase Sinemet and gabapentin to 4 times a day, she did offer the patient outpatient EMG. Neurology does not feel she has underlying neuromuscular disorder but she can pursue further workup through a tertiary care center. Continue physical therapy Hyperlipidemia. Continue Zetia Patient is declining jail facility placement and will consider home health care upon discharge. Progress Note: Quality VTE Deep Vein Thrombosis/Pulmonary Embolism Present on Admission: No
--- NOTE | 2018-02-03 18:51 | P.PNPL ---
Subjective Interval history: 77 YOWF bed ridden for 2 yrs admitted with SOB CTA no PE Breathing betetr Mild congestion No fever Physical Exam Vital signs: Vital Signs 02/02/18 20:03 02/02/18 20:12 02/02/18 20:25 Temperature 97.8 F Pulse Rate 99 H 92 H 108 H Respiratory Rate 16 20 Blood Pressure 119/65 Pulse Oximetry 94 L 02/02/18 23:49 02/03/18 00:07 02/03/18 02:36 Temperature 97.9 F Pulse Rate 87 91 H Respiratory Rate 18 18 Blood Pressure 125/74 Pulse Oximetry 95 02/03/18 03:56 02/03/18 04:18 02/03/18 04:27 Temperature 97.5 F L Pulse Rate 90 98 H Respiratory Rate 18 16 Blood Pressure 149/84 H Pulse Oximetry 95 95 02/03/18 06:46 02/03/18 08:00 02/03/18 08:49 Temperature 97.2 F L Pulse Rate 111 H 108 H Respiratory Rate 20 18 19 Blood Pressure 164/86 H Pulse Oximetry 95 02/03/18 09:00 02/03/18 12:00 02/03/18 15:14 Temperature 98.3 F Pulse Rate 105 H 104 H 100 H Respiratory Rate 18 19 Blood Pressure 133/82 Pulse Oximetry 95 02/03/18 16:00 Temperature 98.3 F Pulse Rate 104 H Respiratory Rate 18 Blood Pressure 136/75 Pulse Oximetry 95 Intake & Output 02/02/18 02/03/18 02/03/18 18:59 06:59 18:59 Intake Total 1200 / 1200 1350 / 1350 Output Total 1500 / 1500 400 / 400 700 / 700 Balance -300 / -300 950 / 950 -700 / -700 Weight 125.6 kg Intake: IV 870 / 870 Azithromycin Inj 500 MG In NS 250 / 250 Inj 250 ML @ 250 mls/hr IV.SIG Q24H [facility] Rx#:[id number] Vancomycin Inj 2,000 MG In NS 520 / 520 Inj 500 ML @ 260 mls/hr IV.SIG ONCE ONE Rx#:[id number] Rocephin Inj 1,000 MG In NS Inj 100 / 100 100 ML @ 200 mls/hr IV.SIG Q24H [facility] Rx#:[id number] Oral 1200 / 1200 480 / 480 Output: Urine 1500 / 1500 400 / 400 700 / 700 Other: # Voids 2 # Incontinent Voids 4 Date of Last Bowel Movement 01/31/18 01/31/18 # Bowel Movements 2 GENERAL: Obese Elderly WF, NAD SKIN: Warm and dry. HEAD: Normocephalic. EYES: No scleral icterus. No injection or drainage. NECK: Supple, trachea midline. No JVD or lymphadenopathy. CARDIOVASCULAR: Regular rate and rhythm without murmurs, gallops, or rubs. RESPIRATORY: Breath sounds equal bilaterally. No accessory muscle use. GASTROINTESTINAL: Abdomen soft, non-tender, nondistended. MUSCULOSKELETAL: No cyanosis, or edema. BACK: Nontender without obvious deformity. No CVA tenderness. Assessment and Plan - Plan IMPRESSION: 1. Shortness of breath. No evidence of pulmonary embolism. 2. Secondhand smoke exposure. 3. Bullous disease of the lung. 4. Hypertension. 5. Chronic bedridden status. 6. Hyperlipidemia. PLAN: Aerosol nebs Check PFT Supplement 02 Cont Abx Sinemet qid
[2018-02-03] MEDS ORDERED: Vancomycin Inj 1,750 MG in Sodium Chlor 0.9% Inj 500 ML IV.SIG SCH (20:00)
[2018-02-03] MEDS: Azithromycin 250 MG Tablet PO SCH (20:33)
[2018-02-04] MEDS: MethylPREDNISolone Sod Succinate Inj 125 MG/2 ML Vial IV.PUSH SCH ×3 (01:56→13:20)
[2018-02-04] MEDS: Ezetimibe 10 MG Tablet PO SCH (09:10)
[2018-02-04] MEDS: Gabapentin 300 MG Capsule PO SCH ×3 (09:10→17:57)
[2018-02-04] MEDS: Primidone 50 MG Tablet PO SCH ×3 (09:10→17:57)
--- NOTE | 2018-02-04 11:32 | P.PN ---
Subjective Interval history: Follow-up visit for community-acquired pneumonia, sepsis, COPD, and possible underlying neuropathy. Patient is seen and examined sitting up in bed and appears to be in no acute distress. She reports she is "doing a little better this morning". Reports some improvement in her breathing, ongoing dry cough, some SOB with exertion. Denies any fevers, chills, nausea, vomiting or diarrhea. Noted loose stools, states that these will usually occur when she receives antibiotics, denies abdominal pain. Physical Exam Vital signs: Vital Signs 02/03/18 12:00 02/03/18 15:14 02/03/18 16:00 Temperature 98.3 F 98.3 F Pulse Rate 104 H 100 H 104 H Respiratory Rate 18 19 18 Blood Pressure 133/82 136/75 Pulse Oximetry 95 95 02/03/18 20:00 02/03/18 20:08 02/03/18 21:18 Temperature 97.7 F Pulse Rate 112 H 98 H Respiratory Rate 20 20 Blood Pressure 160/80 H Pulse Oximetry 94 L 93 L 94 L 02/03/18 23:40 02/04/18 03:20 02/04/18 03:26 Temperature 97.7 F 97.5 F L Pulse Rate 101 H 90 91 H Respiratory Rate 18 18 17 Blood Pressure 152/85 H 143/86 H Pulse Oximetry 94 L 93 L 02/04/18 08:00 02/04/18 11:09 Temperature 97.6 F Pulse Rate 103 H 103 H Respiratory Rate 16 18 Blood Pressure 162/79 H Pulse Oximetry 94 L 95 Intake & Output 02/03/18 02/04/18 02/04/18 18:59 06:59 18:59 Intake Total 820 / 820 Output Total 700 / 700 650 / 650 Balance -700 / -700 170 / 170 Weight 126.5 kg Intake: IV 100 / 100 Rocephin Inj 1,000 MG In NS Inj 100 / 100 100 ML @ 200 mls/hr IV.SIG Q24H [facility] Rx#:[id number] Oral 720 / 720 Output: Urine 700 / 700 650 / 650 Other: # Voids 2 # Incontinent Voids 4 Date of Last Bowel Movement 01/31/18 02/04/18 # Bowel Movements 2 0 Narrative: GENERAL: Well-nourished, obese female resting in bed in no acute distress. SKIN: Warm and dry. HEAD: Atraumatic. Normocephalic. EYES: Pupils equal and round. No scleral icterus. No injection or drainage. ENT: No nasal bleeding or discharge. Mucous membranes pink and moist. NECK: Trachea midline. CARDIOVASCULAR: Regular rate and rhythm. RESPIRATORY: No accessory muscle use. Diminished at bases. GASTROINTESTINAL: Abdomen soft, non-tender, nondistended. + Bowel sounds MUSCULOSKELETAL: Extremities without clubbing, cyanosis, or edema. No obvious deformities. NEUROLOGICAL: Awake, alert, oriented x3. No obvious cranial nerve deficits. Motor grossly within normal limits. Generalized weakness LE>UE. Normal speech. PSYCHIATRIC: Appropriate mood and affect; insight and judgment normal. Results - Labs CBC & Chem 7: 02/03/18 05:38 02/03/18 05:38 Laboratory Results - last 24 hr 02/02/18 15:53 Albumin (PEP) 3.96 Albumin/Globulin Ratio 1.27 L Kufaj-9-Lsgljugll 0.25 Jgfzz-6-Vygixpajp 0.92 Beta Globulins 0.68 Gamma Globulins 1.18 Microbiology 02/01/18 21:46 Blood - Peripheral Aerobic Blood Culture - Preliminary No growth in 3 days 02/01/18 21:46 Blood - Peripheral Anaerobic Blood Culture - Preliminary No growth in 3 days 02/01/18 21:41 Blood - Peripheral Aerobic Blood Culture - Preliminary gram positive cocci 02/01/18 21:41 Blood - Peripheral Anaerobic Blood Culture - Preliminary gram positive cocci Assessment and Plan - Plan 77-year-old white female presents with one-week history of progressively worsening productive cough and shortness of breath. Bilateral community-acquired pneumonia Sepsis (leukocytosis, tachycardia, lactic acid 1.7, suspected source PNA) Suspected underlying COPD Likely pulmonary hypertension as suggested by appearance on CT. -CT chest negative for pulmonary embolism, however does show prominent right lower lobe atelectasis/consolidation with elevation of the right hemidiaphragm similar to prior study. Patchy nonspecific bilateral groundglass pulmonary opacity. -Pulmonology has been consulted and per Dr. Lindsey will continue with DuoNeb treatments, antibiotics and wean oxygen as tolerated. He will check a bedside pulmonary function study. -Continue with IV Rocephin and p.o. azithromycin. 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 Barragan back in August of this year. - Patient still is declining further evaluation and workup with bone marrow biopsy. -Will need to follow-up as an outpatient. Possible underlying neuropathy with a history of extensive degenerative disc disease and currently nonambulatory and bedbound requiring assistance on all activities of daily living. History of restless leg syndrome. With family history of ALS -Neurology consulted, recommends increase in Sinemet and gabapentin to 4 times a day, she did offer the patient outpatient EMG. Neurology does not feel she has underlying neuromuscular disorder but she can pursue further workup through a tertiary care center. -PT following, patient reports she has been bedbound >2yrs. Hyperlipidemia. Continue Zetia Discussed Condition With: Patient and RN
--- NOTE | 2018-02-04 19:28 | P.PNPL ---
Subjective Interval history: 77 YOWF bed ridden for 2 yrs admitted with SOB CTA no PE Breathing better Mild congestion No fever Appetite improving On 2LNC Physical Exam Vital signs: Vital Signs 02/03/18 20:00 02/03/18 20:08 02/03/18 21:18 Temperature 97.7 F Pulse Rate 112 H 98 H Respiratory Rate 20 20 Blood Pressure 160/80 H Pulse Oximetry 94 L 93 L 94 L 02/03/18 23:40 02/04/18 03:20 02/04/18 03:26 Temperature 97.7 F 97.5 F L Pulse Rate 101 H 90 91 H Respiratory Rate 18 18 17 Blood Pressure 152/85 H 143/86 H Pulse Oximetry 94 L 93 L 02/04/18 08:00 02/04/18 11:09 02/04/18 12:00 Temperature 97.6 F 97.8 F Pulse Rate 103 H 103 H 107 H Respiratory Rate 16 18 18 Blood Pressure 162/79 H 139/89 Pulse Oximetry 94 L 95 94 L 02/04/18 13:07 02/04/18 15:44 02/04/18 15:45 Temperature Pulse Rate 106 H 95 H Respiratory Rate 18 Blood Pressure Pulse Oximetry 94 L 02/04/18 16:00 Temperature 97.6 F Pulse Rate 97 H Respiratory Rate 17 Blood Pressure 143/73 H Pulse Oximetry 95 Intake & Output 02/04/18 02/04/18 02/05/18 06:59 18:59 06:59 Intake Total 820 / 820 900 / 900 Output Total 650 / 650 400 / 400 Balance 170 / 170 500 / 500 Weight 126.5 kg Intake: IV 100 / 100 Rocephin Inj 1,000 MG In NS Inj 100 / 100 100 ML @ 200 mls/hr IV.SIG Q24H [facility] Rx#:[id number] Oral 720 / 720 900 / 900 Output: Urine 650 / 650 400 / 400 Other: # Incontinent Voids 4 2 Date of Last Bowel Movement 01/31/18 02/04/18 # Bowel Movements 0 1 GENERAL: Obese WF, NAD SKIN: Warm and dry. HEAD: Normocephalic. EYES: No scleral icterus. No injection or drainage. NECK: Supple, trachea midline. No JVD or lymphadenopathy. CARDIOVASCULAR: Regular rate and rhythm without murmurs, gallops, or rubs. RESPIRATORY: Breath sounds equal bilaterally. No accessory muscle use. GASTROINTESTINAL: Abdomen soft, non-tender, nondistended. MUSCULOSKELETAL: No cyanosis, or edema. BACK: Nontender without obvious deformity. No CVA tenderness. Assessment and Plan - Plan IMPRESSION: 1. Shortness of breath. No evidence of pulmonary embolism. 2. Secondhand smoke exposure. 3. Bullous disease of the lung. 4. Hypertension. 5. Chronic bedridden status. 6. Hyperlipidemia. PLAN: Aerosol nebs Check PFT Supplement 02 Cont Abx Sinemet qid Wean 02 to keep sat >90%
[2018-02-04] MEDS: Azithromycin 250 MG Tablet PO SCH (20:21)
[2018-02-05] MEDS: MethylPREDNISolone Sod Succinate Inj 125 MG/2 ML Vial IV.PUSH SCH ×3 (00:48→12:18)
[2018-02-05] MEDS ORDERED: Pharmacy Ordered Lab Info OTHER ONE (07:45)
[2018-02-05] MEDS: Ezetimibe 10 MG Tablet PO SCH ×2 (07:47→10:14)
[2018-02-05] MEDS: Gabapentin 300 MG Capsule PO SCH ×5 (07:47→17:11)
[2018-02-05] MEDS: Primidone 50 MG Tablet PO SCH ×5 (07:48→17:11)
--- NOTE | 2018-02-05 10:09 | P.PN ---
Subjective Interval history: Follow-up visit for community-acquired pneumonia, sepsis, COPD, and possible underlying neuropathy. Patient is seen and examined sitting up in bed in no acute distress, she reports feeling a little better today. Still requiring oxygen via nasal cannula. Denies any fevers, chills, nausea, vomiting or diarrhea. Some shortness of breath with exertion especially yesterday when getting to the side of the bed with physical therapy otherwise feels okay. Physical Exam Vital signs: Vital Signs 02/04/18 11:09 02/04/18 12:00 02/04/18 13:07 Temperature 97.8 F Pulse Rate 103 H 107 H 106 H Respiratory Rate 18 18 Blood Pressure 139/89 Pulse Oximetry 95 94 L 02/04/18 15:44 02/04/18 15:45 02/04/18 16:00 Temperature 97.6 F Pulse Rate 95 H 97 H Respiratory Rate 18 17 Blood Pressure 143/73 H Pulse Oximetry 94 L 95 02/04/18 19:46 02/04/18 20:00 02/04/18 21:06 Temperature 98.0 F Pulse Rate 104 H 109 H 104 H Respiratory Rate 18 16 Blood Pressure 129/67 Pulse Oximetry 95 02/05/18 00:00 02/05/18 00:29 02/05/18 03:33 Temperature 97.8 F Pulse Rate 90 91 H 88 Respiratory Rate 18 19 Blood Pressure 130/72 Pulse Oximetry 93 L 95 02/05/18 04:57 02/05/18 08:00 02/05/18 09:40 Temperature 98.1 F 97.9 F Pulse Rate 97 H 87 96 H Respiratory Rate 19 18 16 Blood Pressure 138/76 161/84 H Pulse Oximetry 95 94 L 96 Intake & Output 02/04/18 02/05/18 02/05/18 18:59 06:59 18:59 Intake Total 900 / 900 820 / 820 Output Total 400 / 400 1275 / 1275 Balance 500 / 500 -455 / -455 Weight 126.4 kg Intake: IV 100 / 100 Rocephin Inj 1,000 MG In NS Inj 100 / 100 100 ML @ 200 mls/hr IV.SIG Q24H [facility] Rx#:[id number] Oral 900 / 900 720 / 720 Output: Urine 400 / 400 1275 / 1275 Other: # Incontinent Voids 2 Date of Last Bowel Movement 02/04/18 02/04/18 02/04/18 # Bowel Movements 1 0 Narrative: GENERAL: Well-nourished, obese female resting in bed in no acute distress. SKIN: Warm and dry. HEAD: Atraumatic. Normocephalic. EYES: Pupils equal and round. No scleral icterus. No injection or drainage. ENT: No nasal bleeding or discharge. Mucous membranes pink and moist. NECK: Trachea midline. CARDIOVASCULAR: Regular rate and rhythm. RESPIRATORY: No accessory muscle use. Diminished at bases. GASTROINTESTINAL: Abdomen soft, non-tender, nondistended. + Bowel sounds MUSCULOSKELETAL: Extremities without clubbing, cyanosis, or edema. No obvious deformities. NEUROLOGICAL: Awake, alert, oriented x3. No obvious cranial nerve deficits. Motor grossly within normal limits. Generalized weakness LE>UE. Normal speech. PSYCHIATRIC: Appropriate mood and affect; insight and judgment normal. Results - Labs CBC & Chem 7: 02/03/18 05:38 02/03/18 05:38 Laboratory Results - last 24 hr 02/02/18 02/05/18 15:53 00:30 PEP Pathologist Comment Ur 24 Hour Volume 750 Ur Total Protein 24 Hr 128 Microbiology 02/01/18 21:41 Blood - Peripheral Aerobic Blood Culture - Preliminary Staphylococcus coag negative 02/01/18 21:41 Blood - Peripheral Anaerobic Blood Culture - Preliminary Staphylococcus coag negative 02/01/18 21:46 Blood - Peripheral Aerobic Blood Culture - Preliminary No growth in 3 days 02/01/18 21:46 Blood - Peripheral Anaerobic Blood Culture - Preliminary No growth in 3 days Assessment and Plan - Plan 77-year-old white female presents with one-week history of progressively worsening productive cough and shortness of breath. Bilateral community-acquired pneumonia Sepsis (leukocytosis, tachycardia, lactic acid 1.7, suspected source PNA) Suspected underlying COPD Likely pulmonary hypertension as suggested by appearance on CT. -CT chest negative for pulmonary embolism, however does show prominent right lower lobe atelectasis/consolidation with elevation of the right hemidiaphragm similar to prior study. Patchy nonspecific bilateral groundglass pulmonary opacity. -Pulmonology has been consulted and per Dr. Lindsey will continue with DuoNeb treatments, antibiotics and wean oxygen as tolerated. Pending bedside pulmonary function study. -Continue with IV Rocephin and p.o. azithromycin, transition to p.o. tomorrow. Continue IV Solumederol Q12H - Leukocytosis improved, afebrile, check procalcitonin. -+BC in one bottle, second bottle with no growth, likely contaminated, recheck BC in process. 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 Barragan back in August of this year. - Patient still is declining further evaluation and workup with bone marrow biopsy. -Will need to follow-up as an outpatient. Possible underlying neuropathy with a history of extensive degenerative disc disease and currently nonambulatory and bedbound requiring assistance on all activities of daily living. History of restless leg syndrome. With family history of ALS -Neurology consulted, recommends increase in Sinemet and gabapentin to 4 times a day, she did offer the patient outpatient EMG. Neurology does not feel she has underlying neuromuscular disorder but she can pursue further workup through a tertiary care center. -PT following, patient reports she has been bedbound >2yrs. Hyperlipidemia. 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
--- NOTE | 2018-02-05 10:11 | P.DCO ---
- Physical Therapy Order: Evaluate and treat, Improve ambulation, Strength and gait training - Occupational Therapy Order: Evaluate and treat, Gross motor coordination, Fine motor coordination - Home Health Nursing Order: Medical education, Signs/symptoms of disease process, Medication education-adverse effect - Home Health Aide Order: To assist in: Bathing and personal care - Case Management Consult Case Management Consult-Home Health: Yes - Certification I have seen patient Maria Luisa Garcia on 02/05/18. My clinical findings support the need for the requested home health care services because: Limited mobility due to disease progression, Deconditioned with increased weakness, Limited ability to care for self I certify that my clinical findings support that this patient is homebound because: Hx COPD - exertion dyspnea/weakness, Non-ambulatory: confined to bed or chair
--- NOTE | 2018-02-05 17:33 | P.PNPL ---
Subjective Interval history: 77 YOWF bed ridden for 2 yrs admitted with SOB CTA no PE Breathing better Mild congestion No fever Appetite improving Weaned to RA has cough, no sp Physical Exam Vital signs: Vital Signs 02/04/18 19:46 02/04/18 20:00 02/04/18 21:06 Temperature 98.0 F Pulse Rate 104 H 109 H 104 H Respiratory Rate 18 16 Blood Pressure 129/67 Pulse Oximetry 95 02/05/18 00:00 02/05/18 00:29 02/05/18 03:33 Temperature 97.8 F Pulse Rate 90 91 H 88 Respiratory Rate 18 19 Blood Pressure 130/72 Pulse Oximetry 93 L 95 02/05/18 04:57 02/05/18 08:00 02/05/18 09:40 Temperature 98.1 F 97.9 F Pulse Rate 97 H 87 96 H Respiratory Rate 19 18 16 Blood Pressure 138/76 161/84 H Pulse Oximetry 95 94 L 96 02/05/18 10:41 02/05/18 11:40 02/05/18 15:35 Temperature 97.1 F L Pulse Rate 104 H 100 H Respiratory Rate 19 17 18 Blood Pressure 100/51 L Pulse Oximetry 94 L 96 02/05/18 16:00 Temperature 98.1 F Pulse Rate 103 H Respiratory Rate 17 Blood Pressure 152/68 H Pulse Oximetry 93 L Intake & Output 02/04/18 02/05/18 02/05/18 18:59 06:59 18:59 Intake Total 900 / 900 820 / 820 Output Total 400 / 400 1275 / 1275 Balance 500 / 500 -455 / -455 Weight 126.4 kg Intake: IV 100 / 100 Rocephin Inj 1,000 MG In NS Inj 100 / 100 100 ML @ 200 mls/hr IV.SIG Q24H [facility] Rx#:[id number] Oral 900 / 900 720 / 720 Output: Urine 400 / 400 1275 / 1275 Other: # Incontinent Voids 2 Date of Last Bowel Movement 02/04/18 02/04/18 02/04/18 # Bowel Movements 1 0 GENERAL: Obese WF, NAD SKIN: Warm and dry. HEAD: Normocephalic. EYES: No scleral icterus. No injection or drainage. NECK: Supple, trachea midline. No JVD or lymphadenopathy. CARDIOVASCULAR: Regular rate and rhythm without murmurs, gallops, or rubs. RESPIRATORY: Breath sounds equal bilaterally. No accessory muscle use. GASTROINTESTINAL: Abdomen soft, non-tender, nondistended. MUSCULOSKELETAL: No cyanosis, or edema. BACK: Nontender without obvious deformity. No CVA tenderness. Assessment and Plan - Plan IMPRESSION: 1. Shortness of breath. No evidence of pulmonary embolism. 2. Secondhand smoke exposure. 3. Bullous disease of the lung. 4. Hypertension. 5. Chronic bedridden status. 6. Hyperlipidemia. PLAN: Aerosol nebs Check PFT Cont Abx Sinemet qid Use Acapella DC plans underway.
[2018-02-05] MEDS: Azithromycin 250 MG Tablet PO SCH (20:10)
[2018-02-05] MEDS: Heparin - SQ 10,000 UNITS/ML Vial SQ SCH (20:11)
[2018-02-06] MEDS: MethylPREDNISolone Sod Succinate Inj 125 MG/2 ML Vial IV.PUSH SCH (01:10)
[2018-02-06] MEDS: Gabapentin 300 MG Capsule PO SCH ×2 (08:58→14:26)
[2018-02-06] MEDS: Ezetimibe 10 MG Tablet PO SCH (08:59)
[2018-02-06] MEDS: Primidone 50 MG Tablet PO SCH ×2 (08:59→14:26)
[2018-02-06] MEDS ORDERED: levoFLOXacin 750 MG Tablet PO SCH (09:00)
[2018-02-06] MEDS: Heparin - SQ 10,000 UNITS/ML Vial SQ SCH (09:01)
--- NOTE | 2018-02-06 09:13 | P.PNPL ---
Subjective Interval history: 77 YOWF bed ridden for 2 yrs admitted with SOB CTA no PE Breathing better Mild congestion No fever Appetite improving has cough, no sp Physical Exam Vital signs: Vital Signs 02/05/18 09:40 02/05/18 10:41 02/05/18 11:40 Temperature 97.1 F L Pulse Rate 96 H 104 H Respiratory Rate 16 19 17 Blood Pressure 100/51 L Pulse Oximetry 96 94 L 02/05/18 15:35 02/05/18 16:00 02/05/18 19:45 Temperature 98.1 F 97.6 F Pulse Rate 100 H 103 H 98 H Respiratory Rate 18 17 18 Blood Pressure 152/68 H 119/63 Pulse Oximetry 96 93 L 93 L 02/05/18 20:00 02/05/18 21:27 02/06/18 00:00 Temperature Pulse Rate 96 H 98 H 89 Respiratory Rate 16 Blood Pressure Pulse Oximetry 02/06/18 03:00 02/06/18 03:07 02/06/18 04:30 Temperature 99 F Pulse Rate 91 H 99 H Respiratory Rate 20 18 18 Blood Pressure 143/63 H Pulse Oximetry 93 L 02/06/18 07:47 02/06/18 08:36 Temperature 97.5 F L Pulse Rate 99 H Respiratory Rate 16 Blood Pressure 132/91 H Pulse Oximetry 94 L 95 Intake & Output 02/05/18 02/06/18 02/06/18 18:59 06:59 18:59 Intake Total 900 / 900 120 / 120 Output Total 1000 / 1000 Balance -100 / -100 120 / 120 Weight 124.2 kg Intake: Oral 900 / 900 120 / 120 Output: Urine 1000 / 1000 Other: # Voids 3 # Incontinent Voids 1 Date of Last Bowel Movement 02/04/18 02/04/18 # Bowel Movements 2 0 GENERAL: WBWN NAD SKIN: Warm and dry. HEAD: Normocephalic. EYES: No scleral icterus. No injection or drainage. NECK: Supple, trachea midline. No JVD or lymphadenopathy. CARDIOVASCULAR: Regular rate and rhythm without murmurs, gallops, or rubs. RESPIRATORY: Breath sounds equal bilaterally. No accessory muscle use. GASTROINTESTINAL: Abdomen soft, non-tender, nondistended. MUSCULOSKELETAL: No cyanosis, or edema. BACK: Nontender without obvious deformity. No CVA tenderness. Assessment and Plan - Plan IMPRESSION: 1. Shortness of breath. No evidence of pulmonary embolism. 2. Secondhand smoke exposure. 3. Bullous disease of the lung. 4. Hypertension. 5. Chronic bedridden status. 6. Hyperlipidemia. PLAN: Aerosol nebs Cont Abx Sinemet qid Use Acapella DC Solumedrol Tessalon 200 mg q hrs prn DC plans underway.
--- NOTE | 2018-02-06 09:44 | P.DS ---
Date of admission: 02/02/18 01:29 Primary care physician: UNKNOWN Attending physician on discharge: Radha Wood Anticipated date of discharge: 02/06/18 Brief History from admission: 77-year-old female with a history of reportedly restless leg syndrome who presents to the ER with a one-week history of progressively worsening cough productive of yellow sputum, sore throat, with a 1 day history of progressively worsening shortness of breath, sharp bilateral upper chest pain with coughing. She denies any dysphasia. Denies any recent medication changes. She reports that shortness of breath improved after Solu-Medrol. 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 CTA of chest with negative PE, prominent right lower lobe atelectasis/consolidation with elevation of right hemidiaphragm similar to prior study. Patient admitted with suspected sepsis and treated for bilateral community-acquired pneumonia. She was treated with broad-spectrum antibiotics including ceftriaxone and azithromycin as well as started on IV steroids. Pulmonary services was consulted for further evaluations. Recommending nebulizer treatments and treatment with antibiotics. They also recommended checking PFTs. Neurology was also consulted due to suspected neuromuscular disease of lower extremities. Recommendations were made to increase gabapentin or sentiment. Neurology is with patient outpatient EMG/nerve conduction studies. It was also suspected that right hemidiaphragm could be due to multiple back surgeries, low suspicion for neuromuscular disorder, but could further pursue at tertiary center. Patient's IV antibiotics have been transitioned to orals. She has been weaned off of nasal cannula and tolerating well. Pulmonary services has discontinued her IV steroids. Initial blood cultures grew bacteria in 1 bottle, repeat blood culture with no growth after 2 days, likely contaminated. Leukocytosis improved, pro-calcitonin low. She is seen and examined sitting up in bed eating breakfast this morning in no acute distress. She does complain of a dry cough this morning but states her breathing is "doing much better". Denies any nausea , vomiting, headache, dizziness, heart palpitations, chest pain or dysuria. Complains of restless legs, will increase Requip dose to 3 mg TID, Tessalon pearls for cough. Discussed with continuous pillowcase cutter, patient would like to go home for the holidays and later would consider long-term care facility. She has been bedbound for over 2 years and has all necessary equipment at home, discussed home health but she declines at this moment. - Time Spent with Patient Total time spent providing and/or coordinating discharge services: Less than 30 minutes - Quality: VTE Deep Vein Thrombosis/Pulmonary Embolism Present on Admission: No Exam Vital signs: Vital Signs 02/05/18 09:40 02/05/18 10:41 02/05/18 11:40 Temperature 97.1 F L Pulse Rate 96 H 104 H Respiratory Rate 16 19 17 Blood Pressure 100/51 L Pulse Oximetry 96 94 L 02/05/18 15:35 02/05/18 16:00 02/05/18 19:45 Temperature 98.1 F 97.6 F Pulse Rate 100 H 103 H 98 H Respiratory Rate 18 17 18 Blood Pressure 152/68 H 119/63 Pulse Oximetry 96 93 L 93 L 02/05/18 20:00 02/05/18 21:27 02/06/18 00:00 Temperature Pulse Rate 96 H 98 H 89 Respiratory Rate 16 Blood Pressure Pulse Oximetry 02/06/18 03:00 02/06/18 03:07 02/06/18 04:30 Temperature 99 F Pulse Rate 91 H 99 H Respiratory Rate 20 18 18 Blood Pressure 143/63 H Pulse Oximetry 93 L 02/06/18 07:47 02/06/18 08:36 Temperature 97.5 F L Pulse Rate 99 H Respiratory Rate 16 Blood Pressure 132/91 H Pulse Oximetry 94 L 95 Intake & Output 02/05/18 02/06/18 02/06/18 18:59 06:59 18:59 Intake Total 900 / 900 120 / 120 Output Total 1000 / 1000 Balance -100 / -100 120 / 120 Weight 124.2 kg Intake: Oral 900 / 900 120 / 120 Output: Urine 1000 / 1000 Other: # Voids 3 # Incontinent Voids 1 Date of Last Bowel Movement 02/04/18 02/04/18 # Bowel Movements 2 0 Narrative: GENERAL: Well-nourished, obese female resting in bed in no acute distress. SKIN: Warm and dry. HEAD: Atraumatic. Normocephalic. EYES: Pupils equal and round. No scleral icterus. No injection or drainage. ENT: No nasal bleeding or discharge. Mucous membranes pink and moist. NECK: Trachea midline. CARDIOVASCULAR: Regular rate and rhythm. RESPIRATORY: No accessory muscle use. Clear throughout, no rhonchi or wheezes. GASTROINTESTINAL: Abdomen soft, non-tender, nondistended. + Bowel sounds MUSCULOSKELETAL: Extremities without clubbing, cyanosis, or edema. No obvious deformities. NEUROLOGICAL: Awake, alert, oriented x3. No obvious cranial nerve deficits. Motor grossly within normal limits. Generalized weakness LE>UE. Normal speech. PSYCHIATRIC: Appropriate mood and affect; insight and judgment normal. Results Procedures completed during hospitalization: None Labs on day of discharge: Labs from last 24 hours 02/05/18 14:08 Procalcitonin 0.07 Preliminary micro results at discharge 02/04/18 13:30 Aerobic Blood Culture - Preliminary Blood - Peripheral No growth in 1 day Anaerobic Blood Culture - Preliminary No growth in 1 day 02/01/18 21:46 Aerobic Blood Culture - Preliminary Blood - Peripheral No growth in 4 days Anaerobic Blood Culture - Preliminary No growth in 4 days - Impressions ITS Impressions Chest X-Ray 02/01/18 21:31 CONCLUSION: No acute abnormality is identified. 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 The elevated right hemidiaphragm has been present since 2016 but the right middle and lower lobe collapse/volume loss has progressed since that time. Chest CTA 02/01/18 22:26 CONCLUSION: 1. No evidence of pulmonary embolus. Enlargement of the pulmonary arteries indicating possible pulmonary arterial hypertension. 2. Prominent right lower lobe atelectasis/consolidation with elevation of the right hemidiaphragm. Similar to the prior study. 3. 3 cm bulla in the anterior right upper lung zone. Unchanged from prior study. 4. Patchy nonspecific bilateral groundglass pulmonary opacity. Discharge Plan - Discharge Disposition Patient Disposition: 01 Discharge Home - Discharge Condition Condition: Good - Discharge Order Discharge Orders: Discharge Order (Routine); Ordered 02/06/18 Ordered By: Kilo Joseph ED Use Only Admit Order (Routine); Ordered 02/02/18 Ordered By: Maya Pozo - Physicians Team Primary Care Provider: UNKNOWN, Attending Provider: Radha Wood Other Providers: Pop Lindsey MD ; Mary Manzo MD ; [facility]
[2018-02-06] MEDS ORDERED: Benzonatate 100 MG Capsule PO SCH (10:00)
== END 2018-02-06 15:03 | disposition home or self-care (01) ==
LOC: NEPC 21:18 → NEDA 02-02 01:29 → N06 02-02 03:31
PROVIDERS: ADMIT Hospitalist; ATTEND Hospitalist